=== PATIENT | female | born 1960 | race Caucasian/White ===

== ENCOUNTER 2016-04-29 16:25 | Inpatient (IN) | payer MEDICARE, MEDICAID, OTHER ==
[~2016-04-29] VITALS: Ht 165.1 cm; Wt 78.9 kg
[~2016-04-29 16:25] MED LIST: ACET650T10 PO; ALEN70TA39 PO; ASCO500C PO; CALC600T10; CARB300C PO; CLIN1CAP6 PO; FLORPAK2 PO; LEVA500T33 PO; LYRI150C PO; MILN25 PO; MULT1TAB46; OXYC10TA8 PO; POTA75TA PO; RANI75TA8 PO; ROPI1TAB; TIZA2TAB PO; VITA-13 PO; WAL-10TA2 PO; ZINC220C3 PO; ZOLP5TAB3 PO
[2016-04-29 17:00] VITALS: BP 153/90; PULSE 84; RESP 20; TEMP 97.9; O2SAT 97
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
[2016-04-29] MEDS ORDERED: IMIT100T PO (17:20)
[2016-04-29] MEDS ORDERED: ZOLP10TA3 PO (17:20)
[2016-04-29] MEDS ORDERED: LYRI150C PO (17:20)
[2016-04-29 17:52] LABS: AUTOMATED NEUTROPHIL # 4.8 TH/MM3 (1.8-7.7); BASOPHIL # 0.1 TH/MM3 (0-0.2); BASOPHIL % 0.7 % (0.0-2.0); EOSINOPHIL # 0.1 TH/MM3 (0-0.4); EOSINOPHIL % 0.8 % (0.0-4.0); HEMATOCRIT 40.6 % (35.0-46.0); HEMO FLAGS DIFF FINAL; LYMPH % 31.7 % (9.0-44.0); LYMPHOCYTE # 2.7 TH/MM3 (1.0-4.8); MEAN CELL VOLUME 89.2 FL (80.0-100.0); MEAN CORPUSCULAR HEMOGLOBIN 29.8 PG (27.0-34.0); MEAN CORPUSCULAR HGB CONC 33.4 % (32.0-36.0); MONO % 9.7 % (0.0-8.0); NEUT % 57.1 % (16.0-70.0); PLATELET COUNT 225 TH/MM3 (150-450); RED BLOOD COUNT 4.56 MIL/MM3 (4.00-5.30); RED CELL DISTRIBUTION WIDTH 13.5 % (11.6-17.2); WHITE BLOOD COUNT 8.4 TH/MM3 (4.0-11.0)
[2016-04-29 18:06] LABS: BLOOD, URINE NEG (NEG); CALCIUM OXALATE CRYSTALS,URINE MANY /hpf; COMMENT (UR) CULT NOT INDICATED; CULTURE IF INDICATED CULT NOT INDICATED; GLUCOSE,URINE NEG (NEG); KETONE, URINE NEG (NEG); NITRITE,URINE NEG (NEG); SQUAMOUS EPITHELIAL CELL URINE 2 /hpf (0-5); URINE COLOR YELLOW (YELLW/STRAW)
[2016-04-29 18:12] LABS: AMPHETAMINE, URINE NEG (NEG); BARBITURATES, URINE NEG (NEG); COCAINE, URINE NEG (NEG)
[2016-04-29 18:14] LABS: ALKALINE PHOSPHATASE 109 U/L (45-117); TOTAL BILIRUBIN ADULT 0.6 MG/DL (0.2-1.0)
[2016-04-29 18:15] LABS: ALT (GPT) 21 U/L (10-53); ANION GAP 8 MEQ/L (5-15); AST (GOT) 29 U/L (15-37); BICARBONATE 28.8 MEQ/L (21.0-32.0); BLOOD UREA NITROGEN 8 MG/DL (7-18); CHLORIDE 107 MEQ/L (98-107); GLOMERULAR FILTRATION RATE 74 ML/MIN (>89); SODIUM (NA) 144 MEQ/L (136-145)
[2016-04-29 18:19] LABS: POTASSIUM 3.6 MEQ/L (3.5-5.1)
[2016-04-29] MEDS ORDERED: ZANA2CAP PO (18:32)
[2016-04-29] MEDS ORDERED: ROPI1TAB PO (18:32)
[2016-04-29] MEDS ORDERED: CARB200T PO (18:32)
[2016-04-29] MEDS ORDERED: LORA10TA PO (18:35)
[2016-04-29] MEDS ORDERED: OXYC-395 PO (18:35)
[2016-04-29] MEDS ORDERED: MILN25 PO (18:35)
[2016-04-29 18:37] VITALS: BP 136/77; PULSE 75; RESP 20; O2SAT 97
[2016-04-29] MEDS ORDERED: ACET325T PO (18:52)
[2016-04-29] MEDS ORDERED: TEMA15CA PO (18:52)
[2016-04-29] MEDS ORDERED: FEXO1TAB41 PO (18:52)
[2016-04-29] MEDS ORDERED: FLUT1SPR5 EACH NARE (18:52)
[2016-04-29] MEDS ORDERED: MILKSUS PO (18:52)
[2016-04-29] MEDS ORDERED: ASPI1TAB93 PO (18:52)
[2016-04-29 20:16] VITALS: BP 172/94; PULSE 89; RESP 19; O2SAT 96
[2016-04-30 02:00] VITALS: BP 128/64; PULSE 77; RESP 19; O2SAT 97
[2016-04-30 06:16] VITALS: BP 136/64; PULSE 76; RESP 18; O2SAT 100
[2016-04-30] MEDS ORDERED: ACETAMINOPHEN 325 MG TAB PO PRN ×2 (10:00→10:15)
[2016-04-30] MEDS ORDERED: ALUMINUM/MAGNESIUM/SIMETH 30 ML CUP PO PRN ×2 (10:00→10:15)
[2016-04-30] MEDS ORDERED: MAGNESIUM HYDROXIDE SUSP 30 ML CUP PO PRN ×2 (10:00→10:15)
[2016-04-30] MEDS ORDERED: LORazepam 0.5 MG TAB PO PRN (10:00)
[2016-04-30] MEDS ORDERED: LORazepam 1 MG TAB PO PRN ×2 (10:00→10:15)
[2016-04-30] MEDS ORDERED: LORazepam 2 MG/ML VIAL IM PRN ×4 (10:00→10:15)
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
[2016-04-30 10:50] VITALS: BP 139/68; PULSE 77; RESP 18
[2016-04-30 11:29] VITALS: BP 139/68; PULSE 77; RESP 18
[2016-04-30 11:45] VITALS: BP 158/89; PULSE 79; RESP 16; TEMP 97.8; O2SAT 97
[2016-04-30] MEDS ORDERED: ZOLPIDEM TARTRATE 10 MG TAB PO PRN (11:45)
[2016-04-30] MEDS ORDERED: PILL SPLITTER OTHER PRN (13:15)
[2016-04-30] MEDS: guaiFENesin E.R. 600 MG TAB PO SCH (21:00)
[2016-04-30] MEDS: PREGABALIN 75 MG CAP PO SCH (21:00)
[2016-04-30] MEDS: carBAMazepine 200 MG TAB PO SCH (21:00)
[2016-04-30] MEDS ORDERED: REMOVE OLD PATCH T-DERMAL SCH (21:00)
[2016-04-30 22:45] VITALS: BP 162/85; PULSE 89; RESP 18; TEMP 96.6; O2SAT 93
[2016-05-01 06:00] VITALS: BP 101/58; PULSE 82; RESP 18; TEMP 98.7; O2SAT 96
[2016-05-01 08:28] LABS: ANION GAP 7 MEQ/L (5-15); BICARBONATE 31.7 MEQ/L (21.0-32.0); BLOOD UREA NITROGEN 11 MG/DL (7-18); CHLORIDE 102 MEQ/L (98-107); GLOMERULAR FILTRATION RATE 78 ML/MIN (>89); POTASSIUM 3.4 MEQ/L (3.5-5.1); SODIUM (NA) 141 MEQ/L (136-145)
[2016-05-01 08:30] LABS: HDL CHOLESTEROL 71.2 MG/DL (40.0-60.0); LDL CHOLESTEROL 93 MG/DL (0-99)
[2016-05-01] MEDS: MILNACIPRAN 25 MG PO SCH (09:00)
[2016-05-01] MEDS ORDERED: REMOVE OLD PATCH T-DERMAL SCH (09:00)
[2016-05-01] MEDS ORDERED: NICOTINE 21 MG/24 HR PATCH T-DERMAL SCH ×2 (09:00)
[2016-05-01] MEDS: PREGABALIN 75 MG CAP PO SCH ×2 (09:00→21:25)
[2016-05-01] MEDS: LORATADINE 10 MG TAB PO SCH (10:36)
[2016-05-01] MEDS: guaiFENesin E.R. 600 MG TAB PO SCH ×2 (10:36→21:25)
[2016-05-01 10:57] LABS: HEMOGLOBIN A1a 0.9 %; HEMOGLOBIN A1b 0.9 %; HEMOGLOBIN Ao 86.9 %; HEMOGLOBIN F 0.8 %; HEMOGLOBIN LA1C 1.7 %; HEMOGLOBIN P3 3.3 %
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
[2016-05-01 17:59] VITALS: BP 103/59; PULSE 79; RESP 18; TEMP 98.3; O2SAT 96
[2016-05-01] MEDS: AMITRIPTYLINE HCL 25 MG TAB PO SCH (21:25)
[2016-05-01] MEDS: carBAMazepine 200 MG TAB PO SCH (21:26)
[2016-05-02 06:25] VITALS: BP 108/64; PULSE 88; RESP 16; TEMP 97.8; O2SAT 97
[2016-05-02] MEDS: MILNACIPRAN 25 MG PO SCH (09:00)
[2016-05-02] MEDS: guaiFENesin E.R. 600 MG TAB PO SCH ×2 (09:58→21:58)
[2016-05-02] MEDS: carBAMazepine 200 MG TAB PO SCH ×2 (09:58→21:58)
[2016-05-02] MEDS: LORATADINE 10 MG TAB PO SCH (09:58)
--- NOTE | 2016-05-02 13:05 | HHI.PYPN ---
Subjective Remarks Patient seen in her room with nurse Magda, chart reviewed, patient somewhat more irritable and demanding today stating that she will only eat when she wants to eat. That she dislikes being around a lot of people. Which is why she stays in her room. Though she does deny depression at this time she is somewhat more irritable and vigilant. When asked about this and we will could help this along she said "I just want to go home". When I reminded her of the Johnson acted and needs to stay she became angry phone with her arms and refused to talk to me anymore Review of Systems Except as stated in HPI: all other systems reviewed are Neg Objective Alert: Yes [place]: Person, Place, Date, Situation Mood: Calm Affect: Euthymic Memory Intact: Comment (poor) Hallucinations: Other (denies) Delusions: No Delusion Type: Other (denies) Suicidal: Ideation (denies) Homicidal: Ideation (denies) Insight/Judgement Very poor Vitals/IOs Vital Signs Date Time Temp Pulse Resp B/P Pulse Ox O2 Delivery O2 Flow Rate FiO2 05/02/16 06:25 97.8 88 16 108/64 97 04/30/16 11:29 Room Air Intake and Output 05/01/16 05/01/16 05/02/16 08:00 16:00 00:00 Intake Total 0 ml 360 ml 0 ml Balance 0 ml 360 ml 0 ml Assessment & Plan Problem List: (1) Adjustment disorder with mixed disturbance of emotions and conduct ICD Code: F43.25 Assessment & Plan Estimated LOS: days patient continues irritable bowel somewhat guarded, though denying suicidality. Continues to show little insight Justification for Cont. Inpt. At this time patient would decompensate if placed in a lower level of care Discharge Planning Be determined Renzo Camejo MD May 02, 2016 13:05
[2016-05-02] MEDS: LORazepam 0.5 MG TAB PO PRN (17:30)
[2016-05-02 20:05] VITALS: BP 113/59; PULSE 107; RESP 16; TEMP 97.4; O2SAT 97
[2016-05-02] MEDS: PREGABALIN 75 MG CAP PO SCH (21:58)
[2016-05-02] MEDS: AMITRIPTYLINE HCL 25 MG TAB PO SCH (21:59)
[2016-05-03 06:24] VITALS: BP 126/69; PULSE 93; RESP 18; TEMP 98.1; O2SAT 98
[2016-05-03] MEDS: MILNACIPRAN 25 MG PO SCH (09:00)
[2016-05-03] MEDS: LORATADINE 10 MG TAB PO SCH (09:29)
[2016-05-03] MEDS: carBAMazepine 200 MG TAB PO SCH ×2 (09:30→21:00)
[2016-05-03] MEDS: guaiFENesin E.R. 600 MG TAB PO SCH ×2 (09:30→21:00)
--- NOTE | 2016-05-03 18:44 | HHI.PYPN ---
Subjective Remarks Pt seen and discussed with staff. Pt has been withdrawn and isolative to her room. Appetite is poor. No aggression or agitation. She is compliant with medications and denies side effects. Objective Alert: Yes [place]: Person, Place, Date, Situation Mood: Calm Affect: Restricted Memory Intact: Comment (poor) Hallucinations: Other (denies) Delusions: No Delusion Type: Other (denies) Suicidal: Ideation (denies) Homicidal: Ideation (denies) Insight/Judgement limited Vitals/IOs Vital Signs Date Time Temp Pulse Resp B/P Pulse Ox O2 Delivery O2 Flow Rate FiO2 05/03/16 06:24 98.1 93 18 126/69 98 04/30/16 11:29 Room Air Intake and Output 05/02/16 05/02/16 05/03/16 08:00 16:00 00:00 Intake Total 0 ml 0 ml 0 ml Balance 0 ml 0 ml 0 ml Assessment & Plan Problem List: (1) Adjustment disorder with mixed disturbance of emotions and conduct ICD Code: F43.25 Assessment & Plan Continue current tx plan. Estimated LOS: days Justification for Cont. Inpt. monitoring for safety Aissatou Tellez MD May 03, 2016 18:43
[2016-05-03] MEDS: PREGABALIN 75 MG CAP PO SCH (21:15)
[2016-05-03] MEDS: AMITRIPTYLINE HCL 25 MG TAB PO SCH (21:15)
[2016-05-03 22:00] VITALS: BP 133/66; PULSE 100; RESP 18; TEMP 97.8; O2SAT 98
[2016-05-04 05:33] VITALS: BP 130/68; PULSE 87; RESP 16; TEMP 97.6; O2SAT 98
[2016-05-04] MEDS: MILNACIPRAN 25 MG PO SCH (09:00)
[2016-05-04] MEDS: LORATADINE 10 MG TAB PO SCH (09:00)
[2016-05-04] MEDS: carBAMazepine 200 MG TAB PO SCH ×2 (09:00→21:40)
[2016-05-04] MEDS: guaiFENesin E.R. 600 MG TAB PO SCH ×2 (09:00→21:40)
--- NOTE | 2016-05-04 11:55 | HHI.PYPN ---
Subjective Remarks Pt seen and discussed with staff. Pt refused night time medicines, stating that she doesn't take them. During rounds, explained to pt importance of tegretol for mood stabilization and pt agreed to take medicines. She continues to isolate in her room. Objective Alert: Yes [place]: Person, Place, Date, Situation Mood: Calm Affect: Restricted Memory Intact: Comment (poor) Hallucinations: Other (denies) Delusions: No Delusion Type: Other (denies) Suicidal: Ideation (denies) Homicidal: Ideation (denies) Insight/Judgement poor Vitals/IOs Vital Signs Date Time Temp Pulse Resp B/P Pulse Ox O2 Delivery O2 Flow Rate FiO2 05/04/16 05:33 97.6 87 16 130/68 98 04/30/16 11:29 Room Air Intake and Output 05/03/16 05/03/16 05/04/16 08:00 16:00 00:00 Intake Total 0 ml 840 ml Balance 0 ml 840 ml Assessment & Plan Problem List: (1) Adjustment disorder with mixed disturbance of emotions and conduct ICD Code: F43.25 Assessment & Plan Continue current tx plan. Estimated LOS: days Justification for Cont. Inpt. monitoring for safety. medication adjustments. Aissatou Tellez MD May 04, 2016 11:55
[2016-05-04] MEDS: AMITRIPTYLINE HCL 25 MG TAB PO SCH (21:39)
[2016-05-04] MEDS: PREGABALIN 75 MG CAP PO SCH (21:40)
[2016-05-05 04:55] VITALS: BP 131/64; PULSE 88; RESP 18; TEMP 98.1; O2SAT 93
[2016-05-05] MEDS: MILNACIPRAN 25 MG PO SCH (09:00)
[2016-05-05] MEDS: guaiFENesin E.R. 600 MG TAB PO SCH ×2 (09:33→21:38)
[2016-05-05] MEDS: carBAMazepine 200 MG TAB PO SCH ×2 (09:33→21:40)
[2016-05-05] MEDS: LORATADINE 10 MG TAB PO SCH (09:33)
--- NOTE | 2016-05-05 13:48 | HHI.PYPN ---
Subjective Remarks Patient discussed with treatment team, chart review patient seen on unit. All patient continues to somewhat isolate and resistant to medication she is showing some increased cooperation with that. For now continue treatment Review of Systems Except as stated in HPI: all other systems reviewed are Neg Objective Alert: Yes [place]: Person, Place, Date, Situation Mood: Calm Affect: Restricted Memory Intact: Comment (poor) Hallucinations: Other (denies) Delusions: No Delusion Type: Other (denies) Suicidal: Ideation (denies) Homicidal: Ideation (denies) Insight/Judgement Poor Vitals/IOs Vital Signs Date Time Temp Pulse Resp B/P Pulse Ox O2 Delivery O2 Flow Rate FiO2 05/05/16 04:55 98.1 88 18 131/64 93 Intake and Output 05/04/16 05/04/16 05/05/16 08:00 16:00 00:00 Intake Total 0 ml 0 ml Balance 0 ml 0 ml Assessment & Plan Problem List: (1) Adjustment disorder with mixed disturbance of emotions and conduct ICD Code: F43.25 Assessment & Plan Estimated LOS: days patient compliant medications though at times with some reluctance, needing encouragement, patient overall calmer and somewhat more focused, or pleasant with me Justification for Cont. Inpt. At this time patient will decompensate if placed in a lower level of care Discharge Planning To be determined Renzo Camejo MD May 05, 2016 13:48
[2016-05-05 18:00] VITALS: BP 155/95; PULSE 93; RESP 18; TEMP 98.5; O2SAT 97
[2016-05-05] MEDS: PREGABALIN 75 MG CAP PO SCH (21:39)
[2016-05-05] MEDS: AMITRIPTYLINE HCL 25 MG TAB PO SCH (21:40)
[2016-05-06 06:00] VITALS: BP 99/59; PULSE 73; RESP 18; TEMP 96.4; O2SAT 94
[2016-05-06] MEDS: MILNACIPRAN 25 MG PO SCH (09:00)
[2016-05-06] MEDS: carBAMazepine 200 MG TAB PO SCH ×2 (09:47→21:00)
[2016-05-06] MEDS: guaiFENesin E.R. 600 MG TAB PO SCH ×2 (09:47→21:00)
[2016-05-06] MEDS: LORATADINE 10 MG TAB PO SCH (09:47)
--- NOTE | 2016-05-06 15:26 | HHI.PYPN ---
Subjective Remarks Patient seen in her room with nurse Edith and medical student Kaity, chart review, patient's mood is improving she showing increased affect with good eye contact, she now denies suicidality homicidality voices or visions. At this time she is also being interviewed for a possible placement at [facility]. For now continue treatment no change Review of Systems Except as stated in HPI: all other systems reviewed are Neg Objective Alert: Yes [place]: Person, Place, Date, Situation Mood: Calm Affect: Restricted Memory Intact: Comment (poor) Hallucinations: Other (denies) Delusions: No Delusion Type: Other (denies) Suicidal: Ideation (denies) Homicidal: Ideation (denies) Insight/Judgement Poor to fair Vitals/IOs Vital Signs Date Time Temp Pulse Resp B/P Pulse Ox O2 Delivery O2 Flow Rate FiO2 05/06/16 06:00 96.4 73 18 99/59 94 Intake and Output 05/05/16 05/05/16 05/06/16 08:00 16:00 00:00 Intake Total 600 ml 480 ml Balance 600 ml 480 ml Assessment & Plan Problem List: (1) Adjustment disorder with mixed disturbance of emotions and conduct ICD Code: F43.25 Assessment & Plan Estimated LOS: days patient's mood improving in affect is improving. Compliant medications. Now denies SI/HI continue to work with placement Justification for Cont. Inpt. At this time patient will decompensate placed in a lower level of care Discharge Planning To be determined Rezno Camejo MD May 06, 2016 15:25
[2016-05-06 18:15] VITALS: BP 161/88; PULSE 83; RESP 17; TEMP 98.2
[2016-05-06] MEDS: PREGABALIN 75 MG CAP PO SCH (21:00)
[2016-05-06] MEDS: AMITRIPTYLINE HCL 25 MG TAB PO SCH (21:30)
[2016-05-07 06:07] VITALS: BP 102/54; PULSE 62; RESP 18; TEMP 97.6; O2SAT 97
[2016-05-07 06:13] VITALS: BP 102/54; PULSE 62; RESP 18; TEMP 97.6; O2SAT 97
[2016-05-07] MEDS: MILNACIPRAN 25 MG PO SCH (09:00)
[2016-05-07] MEDS: guaiFENesin E.R. 600 MG TAB PO SCH ×2 (09:23→20:53)
[2016-05-07] MEDS: LORATADINE 10 MG TAB PO SCH (09:23)
[2016-05-07] MEDS: carBAMazepine 200 MG TAB PO SCH ×2 (09:24→21:00)
--- NOTE | 2016-05-07 11:08 | HHI.PYPN ---
Subjective Remarks Patient seen in her room with nurse Emre, chart review, patient sitting in chair reading a magazine patient calm pleasant with me. Now denying suicidality homicidality voices or visions. Review of Systems Except as stated in HPI: all other systems reviewed are Neg Objective Alert: Yes [place]: Person, Place, Date, Situation Mood: Calm Affect: Euthymic Memory Intact: Comment (poor) Hallucinations: Other (denies) Delusions: No Delusion Type: Other (denies) Suicidal: Ideation (denies) Homicidal: Ideation (denies) Insight/Judgement Poor Vitals/IOs Vital Signs Date Time Temp Pulse Resp B/P Pulse Ox O2 Delivery O2 Flow Rate FiO2 05/07/16 06:13 97.6 62 18 102/54 97 Intake and Output 05/06/16 05/06/16 05/07/16 08:00 16:00 00:00 Intake Total 1200 ml Balance 1200 ml Assessment & Plan Problem List: (1) Adjustment disorder with mixed disturbance of emotions and conduct ICD Code: F43.25 Assessment & Plan Estimated LOS: days patient's mood is improving, compliant medications, no behavioral problems. Denying suicidality homicidality voices or visions. Continue to word from possible placement Justification for Cont. Inpt. At this time patient will decompensate if placed in the lower level of care Discharge Planning To be determined Renzo Camejo MD May 07, 2016 11:08
[2016-05-07 19:35] VITALS: BP 154/89; PULSE 95; RESP 18; TEMP 98.8; O2SAT 98
[2016-05-07] MEDS: PREGABALIN 75 MG CAP PO SCH (20:55)
[2016-05-07] MEDS: AMITRIPTYLINE HCL 25 MG TAB PO SCH (21:00)
[2016-05-08 05:47] VITALS: BP 84/54; PULSE 73; RESP 16; TEMP 97.6; O2SAT 96
[2016-05-08] MEDS: LORATADINE 10 MG TAB PO SCH (08:54)
[2016-05-08] MEDS: guaiFENesin E.R. 600 MG TAB PO SCH ×2 (08:55→20:44)
[2016-05-08] MEDS: carBAMazepine 200 MG TAB PO SCH ×2 (08:55→20:45)
[2016-05-08] MEDS: MILNACIPRAN 25 MG PO SCH (09:00)
--- NOTE | 2016-05-08 14:56 | HHI.PYPN ---
Subjective Remarks Patient seen in her room with nurse Mt and medical student Akua, chart reviewed, patient calm cooperative pleasant denies suicidality homicidality voices or visions. Still complains of some depression though it is better. She is compliant with medications. At the present time patient is waiting for responses from representatives of various [facility]. For now continue treatment Review of Systems Except as stated in HPI: all other systems reviewed are Neg Objective Alert: Yes [place]: Person, Place, Date, Situation Mood: Calm Affect: Euthymic Memory Intact: Comment (poor) Hallucinations: Other (denies) Delusions: No Delusion Type: Other (denies) Suicidal: Ideation (denies) Homicidal: Ideation (denies) Insight/Judgement Poor to fair Vitals/IOs Vital Signs Date Time Temp Pulse Resp B/P Pulse Ox O2 Delivery O2 Flow Rate FiO2 05/08/16 05:47 97.6 73 16 84/54 96 Intake and Output 05/07/16 05/07/16 05/08/16 08:00 16:00 00:00 Intake Total 0 ml 540 ml Balance 0 ml 540 ml Assessment & Plan Problem List: (1) Adjustment disorder with mixed disturbance of emotions and conduct ICD Code: F43.25 Assessment & Plan Estimated LOS: days patient calm cooperative compliant medications. Continue to await word from possible placements for now continue treatment Justification for Cont. Inpt. At this time patient would decompensate if placed in a lower level of care Discharge Planning To be determined Renzo Camejo MD May 08, 2016 14:56
[2016-05-08 20:04] VITALS: BP 151/89; PULSE 74; RESP 16; TEMP 97.6; O2SAT 96
[2016-05-08] MEDS: AMITRIPTYLINE HCL 25 MG TAB PO SCH (20:43)
[2016-05-08] MEDS: PREGABALIN 75 MG CAP PO SCH (20:43)
[2016-05-09 05:37] VITALS: BP 102/55; PULSE 70; RESP 18; TEMP 97.1; O2SAT 95
[2016-05-09] MEDS: LORATADINE 10 MG TAB PO SCH ×2 (09:00→09:31)
[2016-05-09] MEDS: MILNACIPRAN 25 MG PO SCH (09:00)
[2016-05-09] MEDS: carBAMazepine 200 MG TAB PO SCH ×3 (09:00→20:47)
[2016-05-09] MEDS: guaiFENesin E.R. 600 MG TAB PO SCH ×2 (09:31→20:46)
--- NOTE | 2016-05-09 12:11 | HHI.PYPN ---
Subjective Remarks Patient seen in her room with medical student Akua, chart reviewed. Patient continues to isolate the no behavioral problems, she is calm cooperative compliant medications. She states she does not feel lonely or alone when sitting in her room. She is coping with them hoping for a good response from her prior interviews Review of Systems Except as stated in HPI: all other systems reviewed are Neg Objective Alert: Yes [place]: Person, Place, Date, Situation Mood: Calm Affect: Euthymic Memory Intact: Comment (poor) Hallucinations: Other (denies) Delusions: No Delusion Type: Other (denies) Suicidal: Ideation (denies) Homicidal: Ideation (denies) Insight/Judgement Poor Vitals/IOs Vital Signs Date Time Temp Pulse Resp B/P Pulse Ox O2 Delivery O2 Flow Rate FiO2 05/09/16 05:37 97.1 70 18 102/55 95 Assessment & Plan Problem List: (1) Adjustment disorder with mixed disturbance of emotions and conduct ICD Code: F43.25 Assessment & Plan Estimated LOS: days patient continues calm cooperative no denying suicidality though continues to appear somewhat sad. Compliant medications. Continue to await word from possible placement Justification for Cont. Inpt. At this time patient will decompensate placed on a lower level of care Discharge Planning To be determined Renzo Camejo MD May 09, 2016 12:11
[2016-05-09 18:31] VITALS: BP 135/83; PULSE 78; RESP 18; TEMP 98.2; O2SAT 97
[2016-05-09] MEDS: PREGABALIN 75 MG CAP PO SCH (20:45)
[2016-05-09] MEDS: AMITRIPTYLINE HCL 25 MG TAB PO SCH (20:46)
[2016-05-10 06:06] VITALS: BP 114/58; PULSE 70; RESP 16; TEMP 98.1; O2SAT 95
[2016-05-10] MEDS: LORATADINE 10 MG TAB PO SCH (09:00)
[2016-05-10] MEDS: MILNACIPRAN 25 MG PO SCH (09:00)
[2016-05-10] MEDS: carBAMazepine 200 MG TAB PO SCH ×3 (09:00→20:59)
[2016-05-10] MEDS: guaiFENesin E.R. 600 MG TAB PO SCH ×2 (09:10→20:59)
--- NOTE | 2016-05-10 12:34 | HHI.PYPN ---
Subjective Remarks Patient was seen and case discussed with nursing. Patient is disheveled, interviewed in bed. She is calm and cooperative with exam. Describes her mood as "fine. Poor insight into her admission. Denies auditory visual hallucinations. Denies suicidal ideations thought or plan. Behaving well on the unit. Refusing most of her medications Objective Alert: Yes [place]: Person, Place, Date, Situation Mood: Calm Affect: Euthymic Memory Intact: Comment (poor) Hallucinations: Other (denies) Delusions: No Delusion Type: Other (denies) Suicidal: Ideation (denies) Homicidal: Ideation (denies) Insight/Judgement Poor Vitals/IOs Vital Signs Date Time Temp Pulse Resp B/P Pulse Ox O2 Delivery O2 Flow Rate FiO2 05/10/16 06:06 98.1 70 16 114/58 95 Assessment & Plan Problem List: (1) Adjustment disorder with mixed disturbance of emotions and conduct ICD Code: F43.25 Assessment & Plan Continue current treatment plan Justification for Cont. Inpt. Patient will decompensate in a less restrictive setting Kale Pendleton DO May 10, 2016 12:34
[2016-05-10] MEDS: AMITRIPTYLINE HCL 25 MG TAB PO SCH (20:56)
[2016-05-10] MEDS: PREGABALIN 75 MG CAP PO SCH (20:56)
[2016-05-11 06:30] VITALS: BP 95/53; PULSE 71; RESP 18; TEMP 97.7; O2SAT 94
[2016-05-11] MEDS: guaiFENesin E.R. 600 MG TAB PO SCH ×2 (09:00→20:42)
[2016-05-11] MEDS: MILNACIPRAN 25 MG PO SCH (09:00)
[2016-05-11] MEDS: LORATADINE 10 MG TAB PO SCH (09:44)
[2016-05-11] MEDS: carBAMazepine 200 MG TAB PO SCH ×2 (09:44→20:43)
--- NOTE | 2016-05-11 14:44 | HHI.PYPN ---
Subjective Remarks Patient was seen and case discussed with nursing. Patient is very seclusive to room. Alert and oriented 3. Knows the president. She is irritable and says she does not like people. Spending her time playing solitaire. Denies auditory visual hallucinations. Denies suicidal ideations intent or plan Objective Alert: Yes [place]: Person, Place, Date, Situation Mood: Other (irritable) Affect: Blunted Memory Intact: Comment (poor) Hallucinations: Other (denies) Delusions: No Delusion Type: Other (denies) Suicidal: Ideation (denies) Homicidal: Ideation (denies) Insight/Judgement Limited Vitals/IOs Vital Signs Date Time Temp Pulse Resp B/P Pulse Ox O2 Delivery O2 Flow Rate FiO2 05/11/16 06:30 97.7 71 18 95/53 94 Assessment & Plan Problem List: (1) Adjustment disorder with mixed disturbance of emotions and conduct ICD Code: F43.25 Assessment & Plan Continue current treatment plan Justification for Cont. Inpt. Patient will decompensate in a less restrictive setting Kale Pendleton DO May 11, 2016 14:44
[2016-05-11 17:49] VITALS: BP 124/77; PULSE 89; RESP 18; TEMP 98.4; O2SAT 96
[2016-05-11 20:22] VITALS: BP 124/77; PULSE 89; RESP 18; TEMP 98.4; O2SAT 96
[2016-05-11] MEDS: PREGABALIN 75 MG CAP PO SCH (20:40)
[2016-05-11] MEDS: AMITRIPTYLINE HCL 25 MG TAB PO SCH (20:40)
[2016-05-12 05:09] VITALS: BP 103/57; PULSE 73; RESP 18; TEMP 98.2; O2SAT 96
[2016-05-12] MEDS: LORATADINE 10 MG TAB PO SCH (09:00)
[2016-05-12] MEDS: MILNACIPRAN 25 MG PO SCH (09:00)
[2016-05-12] MEDS: guaiFENesin E.R. 600 MG TAB PO SCH ×2 (09:57→20:43)
[2016-05-12] MEDS: carBAMazepine 200 MG TAB PO SCH ×2 (09:58→20:45)
[2016-05-12 16:44] VITALS: BP 144/71; PULSE 76; RESP 18; TEMP 98.3; O2SAT 97
--- NOTE | 2016-05-12 16:51 | HHI.PYPN ---
Subjective Remarks Patient discussed with treatment team, chart review, seen on unit. Her problems is coping with her placement issues. Denies suicidality of voices. Compliant medications. For now continue treatment Review of Systems Except as stated in HPI: all other systems reviewed are Neg Objective Alert: Yes [place]: Person, Place, Date, Situation Mood: Other (irritable) Affect: Blunted Memory Intact: Comment (poor) Hallucinations: Other (denies) Delusions: No Delusion Type: Other (denies) Suicidal: Ideation (denies) Homicidal: Ideation (denies) Insight/Judgement Poor Vitals/IOs Vital Signs Date Time Temp Pulse Resp B/P Pulse Ox O2 Delivery O2 Flow Rate FiO2 05/12/16 16:44 98.3 76 18 144/71 97 Assessment & Plan Problem List: (1) Adjustment disorder with mixed disturbance of emotions and conduct ICD Code: F43.25 Assessment & Plan Estimated LOS: days patient somewhat calmer coping with placement issues. Compliant medication Justification for Cont. Inpt. At this time patient will decompensate placed in a lower level of care Discharge Planning To be determined Renzo Camejo MD May 12, 2016 16:51
[2016-05-12] MEDS: PREGABALIN 75 MG CAP PO SCH (20:43)
[2016-05-12] MEDS: AMITRIPTYLINE HCL 25 MG TAB PO SCH (20:43)
[2016-05-13 05:45] VITALS: BP 100/56; PULSE 70; RESP 17; TEMP 98; O2SAT 95
[2016-05-13] MEDS: guaiFENesin E.R. 600 MG TAB PO SCH ×2 (08:18→20:57)
[2016-05-13] MEDS: carBAMazepine 200 MG TAB PO SCH ×2 (08:20→21:00)
[2016-05-13] MEDS: LORATADINE 10 MG TAB PO SCH (08:20)
[2016-05-13] MEDS: MILNACIPRAN 25 MG PO SCH (08:20)
--- NOTE | 2016-05-13 14:54 | HHI.PYPN ---
Subjective Remarks Patient seen in her room with medical student Akua, chart reviewed. Patient showing noncompliance with her Tegretol was compliant medication. Patient is calm cooperative pleasant with us denies suicidality homicidality voices or visions. Is excited about possible placement at [facility]. For now continue treatment Review of Systems Except as stated in HPI: all other systems reviewed are Neg Objective Alert: Yes [place]: Person, Place, Date, Situation Mood: Other (irritable) Affect: Blunted Memory Intact: Comment (poor) Hallucinations: Other (denies) Delusions: No Delusion Type: Other (denies) Suicidal: Ideation (denies) Homicidal: Ideation (denies) Insight/Judgement Poor Vitals/IOs Vital Signs Date Time Temp Pulse Resp B/P Pulse Ox O2 Delivery O2 Flow Rate FiO2 05/13/16 05:45 98.0 70 17 100/56 95 Assessment & Plan Problem List: (1) Adjustment disorder with mixed disturbance of emotions and conduct ICD Code: F43.25 Assessment & Plan Estimated LOS: days patient continues to isolate though is calm cooperative pleasant with us. Denying suicidality homicidality voices or visions. Showing some mixed compliance medication especially focused on her Tegretol. Otherwise patient no behavioral issues. Continues to await word from [facility] Justification for Cont. Inpt. At this time patient will decompensate the placed in a lower level of care Discharge Planning To be determined Renzo Camejo MD May 13, 2016 14:54
[2016-05-13] MEDS: AMITRIPTYLINE HCL 25 MG TAB PO SCH (20:57)
[2016-05-13] MEDS: PREGABALIN 75 MG CAP PO SCH (20:57)
[2016-05-13 21:55] VITALS: BP 158/93; PULSE 83; TEMP 98.2; O2SAT 99
[2016-05-14 05:59] VITALS: BP 92/56; PULSE 72; RESP 18; TEMP 97.4; O2SAT 95
[2016-05-14] MEDS: LORATADINE 10 MG TAB PO SCH (08:48)
[2016-05-14] MEDS: guaiFENesin E.R. 600 MG TAB PO SCH ×2 (08:48→21:00)
[2016-05-14] MEDS: MILNACIPRAN 25 MG PO SCH (08:48)
[2016-05-14] MEDS: carBAMazepine 200 MG TAB PO SCH ×2 (08:49→21:00)
--- NOTE | 2016-05-14 12:21 | HHI.PYPN ---
Subjective Remarks Patient remains psychotic with paranoid ideations, mistrustful this, and feelings of persecution by other patients. She makes veiled threats to harm others who she perceives as allotting against her. Review of Systems ROS Limitations: Clinical Condition Except as stated in HPI: all other systems reviewed are Neg Objective Alert: Yes [place]: Person, Place Mood: Anxious, Other (irritable) Affect: Restricted, Blunted Memory Intact: Immediate, Comment (poor) Hallucinations: Other (denies) Delusions: Yes Delusion Type: Paranoid, Other (denies) Suicidal: Ideation (denies) Homicidal: Ideation (denies) Insight/Judgement Impaired. Vitals/IOs Vital Signs Date Time Temp Pulse Resp B/P Pulse Ox O2 Delivery O2 Flow Rate FiO2 05/14/16 05:59 97.4 72 18 92/56 95 Assessment & Plan Problem List: (1) Adjustment disorder with mixed disturbance of emotions and conduct ICD Code: F43.25 Assessment & Plan Estimated LOS: days 3 days as it appears the patient's antipsychotic medicines still need more time to work. Justification for Cont. Inpt. Paranoid and remains at risk for attacking others. Elder Santana MD May 14, 2016 12:21
[2016-05-14 18:50] VITALS: BP 138/84; PULSE 82; RESP 18; TEMP 98.2; O2SAT 99
[2016-05-14] MEDS: PREGABALIN 75 MG CAP PO SCH (21:05)
[2016-05-14] MEDS: AMITRIPTYLINE HCL 25 MG TAB PO SCH (21:05)
[2016-05-15 06:03] VITALS: BP 100/65; PULSE 46; RESP 16; TEMP 97.3
[2016-05-15] MEDS: MILNACIPRAN 25 MG PO SCH (09:00)
[2016-05-15] MEDS: guaiFENesin E.R. 600 MG TAB PO SCH ×2 (09:00→10:52)
[2016-05-15] MEDS: carBAMazepine 200 MG TAB PO SCH ×2 (09:00→10:53)
[2016-05-15] MEDS: LORATADINE 10 MG TAB PO SCH ×2 (09:00→10:53)
--- NOTE | 2016-05-15 11:06 | HHI.PYPN ---
Subjective Remarks Patient has been irritable, cross and difficult. She would not take her prescribed medications for physical ailments until this physician spoke critically to her. She does not appear to appreciate the severity or dangerousness of her physical conditions. Review of Systems ROS Limitations: Clinical Condition Except as stated in HPI: all other systems reviewed are Neg Objective Alert: Yes [place]: Person, Place Mood: Agitated, Other (irritable) Affect: Labile, Restricted, Blunted Memory Intact: Immediate, Comment (poor) Hallucinations: Other (denies) Delusions: Yes Delusion Type: Paranoid, Other (denies) Suicidal: Ideation (denies) Homicidal: Ideation (denies) Insight/Judgement Impaired. Vitals/IOs Vital Signs Date Time Temp Pulse Resp B/P Pulse Ox O2 Delivery O2 Flow Rate FiO2 05/15/16 06:03 97.3 46 16 100/65 05/14/16 18:50 99 Assessment & Plan Problem List: (1) Adjustment disorder with mixed disturbance of emotions and conduct ICD Code: F43.25 Assessment & Plan Estimated LOS: 2-3 days patient remains easily agitated, argumentative, cross, irritable and labile. She has an incomplete understanding of her physical illnesses and wants to refuse her medications for no good reason. This physician feels she remains unable to care for herself and requires placement. Justification for Cont. Inpt. Patient is unable to care for herself. Elder Santana MD May 15, 2016 11:06
[2016-05-15 20:18] VITALS: BP 117/72; PULSE 85; RESP 16; TEMP 97.8; O2SAT 99
[2016-05-15] MEDS: AMITRIPTYLINE HCL 25 MG TAB PO SCH (20:23)
[2016-05-15] MEDS: PREGABALIN 75 MG CAP PO SCH (20:24)
[2016-05-16 06:04] VITALS: BP 103/61; PULSE 92; RESP 18; TEMP 98.2; O2SAT 96
[2016-05-16] MEDS: carBAMazepine 200 MG TAB PO SCH ×2 (08:40→21:36)
[2016-05-16] MEDS: guaiFENesin E.R. 600 MG TAB PO SCH ×2 (08:40→21:36)
[2016-05-16] MEDS: MILNACIPRAN 25 MG PO SCH (08:40)
--- NOTE | 2016-05-16 12:40 | HHI.PYPN ---
Subjective Remarks Patient remains medically compromised and inconsistently compliant from a psychiatric standpoint. Review of Systems ROS Limitations: Clinical Condition Except as stated in HPI: all other systems reviewed are Neg Objective Alert: Yes [place]: Person, Place Mood: Agitated, Other (irritable) Affect: Labile, Restricted, Blunted Memory Intact: Immediate, Comment (poor) Hallucinations: Other (denies) Delusions: Yes Delusion Type: Paranoid, Other (denies) Suicidal: Ideation (denies) Homicidal: Ideation (denies) Insight/Judgement Impaired Vitals/IOs Vital Signs Date Time Temp Pulse Resp B/P Pulse Ox O2 Delivery O2 Flow Rate FiO2 05/16/16 06:04 98.2 92 18 103/61 96 Assessment & Plan Problem List: (1) Adjustment disorder with mixed disturbance of emotions and conduct ICD Code: F43.25 Assessment & Plan Estimated LOS: 7 days patient has multiple physical problems and does not care for herself or take her medicines as prescribed. This physician plans to place her in some type of correction facility. Justification for Cont. Inpt. Patient remains unable to care for herself. Elder Santana MD May 16, 2016 12:40
[2016-05-16 19:26] VITALS: BP 127/74; PULSE 80; RESP 16; TEMP 98.3; O2SAT 99
[2016-05-16] MEDS: PREGABALIN 75 MG CAP PO SCH (21:36)
[2016-05-16] MEDS: AMITRIPTYLINE HCL 25 MG TAB PO SCH (21:37)
[2016-05-17 06:21] VITALS: BP 90/53; PULSE 73; RESP 18; TEMP 97.7; O2SAT 96
[2016-05-17] MEDS: MILNACIPRAN 25 MG PO SCH (08:32)
[2016-05-17] MEDS: LORATADINE 10 MG TAB PO SCH (09:22)
[2016-05-17] MEDS: carBAMazepine 200 MG TAB PO SCH ×2 (09:22→21:28)
[2016-05-17] MEDS: guaiFENesin E.R. 600 MG TAB PO SCH ×2 (09:23→21:00)
[2016-05-17 18:26] VITALS: BP 139/86; PULSE 86; RESP 16; TEMP 98.1; O2SAT 98
--- NOTE | 2016-05-17 20:49 | HHI.PYPN ---
Subjective Remarks Pt seen and discussed with staff. Pt has been isolative to her room with minimal engagement. She is compliant and cooperative with medications and denies side effects. She is very guarded during interview and answers questions with one word answers and resists efforts to engage. No agitation or behavioral concerns. Objective Alert: Yes [place]: Person, Place Mood: Calm, Other (irritable) Affect: Restricted Memory Intact: Comment (poor) Hallucinations: Other (denies) Delusions: No Delusion Type: Other (none) Suicidal: Ideation (denies) Homicidal: Ideation (denies) Insight/Judgement poor Vitals/IOs Vital Signs Date Time Temp Pulse Resp B/P Pulse Ox O2 Delivery O2 Flow Rate FiO2 05/17/16 18:26 98.1 86 16 139/86 98 Assessment & Plan Problem List: (1) Adjustment disorder with mixed disturbance of emotions and conduct ICD Code: F43.25 Assessment & Plan Continue current tx plan. Estimated LOS: days Justification for Cont. Inpt. impairments in self care, risk of decompensation Aissatou Tellez MD May 17, 2016 20:49
[2016-05-17] MEDS: PREGABALIN 75 MG CAP PO SCH (21:28)
[2016-05-17] MEDS: AMITRIPTYLINE HCL 25 MG TAB PO SCH (21:28)
[2016-05-18 05:08] VITALS: BP 101/53; PULSE 75; RESP 16; TEMP 97.5; O2SAT 96
[2016-05-18] MEDS: guaiFENesin E.R. 600 MG TAB PO SCH ×2 (09:00→20:50)
[2016-05-18] MEDS: MILNACIPRAN 25 MG PO SCH (09:00)
[2016-05-18] MEDS: carBAMazepine 200 MG TAB PO SCH ×2 (09:00→20:51)
[2016-05-18] MEDS: LORATADINE 10 MG TAB PO SCH (09:00)
[2016-05-18 18:16] VITALS: BP 140/74; PULSE 75; RESP 16; TEMP 97.9; O2SAT 96
--- NOTE | 2016-05-18 18:54 | HHI.PYPN ---
Subjective Remarks Pt seen and discussed with staff. Pt has been less seclusive and spent about 2 hours in day room today. She is compliant with medications. No SI/HI Objective Alert: Yes [place]: Person, Place Mood: Calm, Other (irritable) Affect: Restricted Memory Intact: Comment (poor) Hallucinations: Other (denies) Delusions: No Delusion Type: Other (none) Suicidal: Ideation (denies) Homicidal: Ideation (denies) Insight/Judgement poor Vitals/IOs Vital Signs Date Time Temp Pulse Resp B/P Pulse Ox O2 Delivery O2 Flow Rate FiO2 05/18/16 18:16 97.9 75 16 140/74 96 Assessment & Plan Problem List: (1) Adjustment disorder with mixed disturbance of emotions and conduct ICD Code: F43.25 Assessment & Plan Continue current tx plan. Estimated LOS: days Justification for Cont. Inpt. risk of decompensation Aissatou Tellez MD May 18, 2016 18:54
[2016-05-18] MEDS: AMITRIPTYLINE HCL 25 MG TAB PO SCH (20:50)
[2016-05-18] MEDS: PREGABALIN 75 MG CAP PO SCH (20:50)
[2016-05-18] MEDS: LORazepam 0.5 MG TAB PO PRN (20:51)
[2016-05-19 05:07] VITALS: BP 139/73; PULSE 85; RESP 18; TEMP 97.8; O2SAT 97
[2016-05-19] MEDS: LORATADINE 10 MG TAB PO SCH (08:41)
[2016-05-19] MEDS: guaiFENesin E.R. 600 MG TAB PO SCH ×2 (08:41→21:20)
[2016-05-19] MEDS: carBAMazepine 200 MG TAB PO SCH ×2 (08:41→21:20)
[2016-05-19] MEDS: MILNACIPRAN 25 MG PO SCH (09:00)
[2016-05-19 12:54] VITALS: BP 123/72; PULSE 91; RESP 16; TEMP 98.3; O2SAT 97
[2016-05-19 13:51] VITALS: BP 134/81; PULSE 81; RESP 16; TEMP 98.1; O2SAT 99
--- NOTE | 2016-05-19 14:24 | HHI.PYPN ---
Subjective Remarks Patient seen in her wheelchair in her room with nurse Fausto. Patient calm pleasant with me did remember me from a few days ago patient said she slipped on the floor is no complaints of pain is able to move all 4 extremities without difficulty. Otherwise patient continues to wait for placement. She denies suicidality homicidality voices or visions. She also continues isolate though she appears to have note problems with that. We'll check Tegretol level in a.m. Review of Systems Except as stated in HPI: all other systems reviewed are Neg Objective Alert: Yes [place]: Person, Place Mood: Calm, Other (irritable) Affect: Restricted Memory Intact: Comment (poor) Hallucinations: Other (denies) Delusions: No Delusion Type: Other (none) Suicidal: Ideation (denies) Homicidal: Ideation (denies) Insight/Judgement Poor Vitals/IOs Vital Signs Date Time Temp Pulse Resp B/P Pulse Ox O2 Delivery O2 Flow Rate FiO2 05/19/16 13:51 98.1 81 16 134/81 99 Assessment & Plan Problem List: (1) Adjustment disorder with mixed disturbance of emotions and conduct ICD Code: F43.25 Assessment & Plan Estimated LOS: days patient continues calm cooperative coping with placement issues. No complaints of pain after having a fall on her buttocks and towards her right hip does no wall 4 extremities well Justification for Cont. Inpt. At this time patient will decompensate if placed in a lower level of care Discharge Planning To be determined Renzo Camejo MD May 19, 2016 14:24
[2016-05-19 19:46] VITALS: BP 145/86; PULSE 81; RESP 18; TEMP 97.8; O2SAT 99
[2016-05-19] MEDS: PREGABALIN 75 MG CAP PO SCH (21:19)
[2016-05-19] MEDS: AMITRIPTYLINE HCL 25 MG TAB PO SCH (21:20)
[2016-05-20 05:59] VITALS: BP 92/55; PULSE 83; RESP 16; TEMP 97; O2SAT 96
[2016-05-20] MEDS: MILNACIPRAN 25 MG PO SCH (09:00)
[2016-05-20] MEDS: carBAMazepine 200 MG TAB PO SCH ×2 (10:28→21:02)
[2016-05-20] MEDS: guaiFENesin E.R. 600 MG TAB PO SCH ×2 (10:28→21:02)
[2016-05-20] MEDS: LORATADINE 10 MG TAB PO SCH (10:28)
[2016-05-20 17:30] VITALS: BP 131/87; PULSE 86; RESP 16; O2SAT 95
[2016-05-20] MEDS: PREGABALIN 75 MG CAP PO SCH (21:01)
[2016-05-20] MEDS: AMITRIPTYLINE HCL 25 MG TAB PO SCH (21:02)
[2016-05-21 04:00] VITALS: BP 100/60; PULSE 85; RESP 16; TEMP 99.1; O2SAT 95
[2016-05-21] MEDS: guaiFENesin E.R. 600 MG TAB PO SCH ×2 (08:52→20:45)
[2016-05-21] MEDS: carBAMazepine 200 MG TAB PO SCH ×2 (08:52→20:46)
[2016-05-21] MEDS: MILNACIPRAN 25 MG PO SCH (08:52)
[2016-05-21] MEDS: LORATADINE 10 MG TAB PO SCH (08:52)
--- NOTE | 2016-05-21 15:53 | HHI.PYPN ---
Subjective Remarks This is the psychiatry progress note for 05/20/2016. The patient is more calm and cooperative today. At this point medications appear to be properly adjusted but the patient remains unable to care for herself. Review of Systems ROS Limitations: Clinical Condition Objective Alert: Yes [place]: Person, Place Mood: Calm, Other (irritable) Affect: Restricted Memory Intact: Comment (poor) Hallucinations: Other (denies) Delusions: No Delusion Type: Other (none) Suicidal: Ideation (denies) Homicidal: Ideation (denies) Insight/Judgement Impaired but baseline. Vitals/IOs Vital Signs Date Time Temp Pulse Resp B/P Pulse Ox O2 Delivery O2 Flow Rate FiO2 05/21/16 04:00 99.1 85 16 100/60 95 Assessment & Plan Problem List: (1) Adjustment disorder with mixed disturbance of emotions and conduct ICD Code: F43.25 Assessment & Plan Estimated LOS: 2-3 days due to the combination of her physical limitations and her emotional fragility, the patient remains unable to care for herself, easily upset and easily distracted. She also represents a significant fall risk. Justification for Cont. Inpt. Unable to care for self. Elder Santana MD May 21, 2016 15:53
--- NOTE | 2016-05-21 15:55 | HHI.PYPN ---
Subjective Remarks Patient was fairly calm and cooperative today. She remains at high risk for falls and requires assistance with activities of daily living. Review of Systems ROS Limitations: Clinical Condition Objective Alert: Yes [place]: Person, Place, Situation Mood: Calm, Other (irritable) Affect: Restricted Memory Intact: Comment (poor) Hallucinations: Other (denies) Delusions: No Delusion Type: Other (none) Suicidal: Ideation (denies) Homicidal: Ideation (denies) Insight/Judgement Mildly to moderately impaired. Vitals/IOs Vital Signs Date Time Temp Pulse Resp B/P Pulse Ox O2 Delivery O2 Flow Rate FiO2 05/21/16 04:00 99.1 85 16 100/60 95 Assessment & Plan Problem List: (1) Adjustment disorder with mixed disturbance of emotions and conduct ICD Code: F43.25 Assessment & Plan 2 days Estimated LOS: days patient continues to be unable to care for herself and requires nursing assistance and staff assistance for activities of daily living. Justification for Cont. Inpt. Unable to care for self. Elder Santana MD May 21, 2016 15:54
[2016-05-21 19:34] VITALS: BP 138/74; PULSE 93; RESP 18; TEMP 98.5; O2SAT 98
[2016-05-21] MEDS: AMITRIPTYLINE HCL 25 MG TAB PO SCH (20:45)
[2016-05-21] MEDS: PREGABALIN 75 MG CAP PO SCH (20:46)
[2016-05-22 06:29] VITALS: BP 103/64; PULSE 75; RESP 18; O2SAT 96
[2016-05-22] MEDS: MILNACIPRAN 25 MG PO SCH (09:00)
[2016-05-22] MEDS: LORATADINE 10 MG TAB PO SCH (09:11)
[2016-05-22] MEDS: carBAMazepine 200 MG TAB PO SCH ×2 (09:11→20:39)
[2016-05-22] MEDS: guaiFENesin E.R. 600 MG TAB PO SCH ×2 (09:12→20:38)
[2016-05-22 19:03] VITALS: BP 138/82; PULSE 93; RESP 16; TEMP 97.9; O2SAT 96
[2016-05-22] MEDS: PREGABALIN 75 MG CAP PO SCH (20:38)
[2016-05-22] MEDS: AMITRIPTYLINE HCL 25 MG TAB PO SCH (20:51)
[2016-05-23 06:12] VITALS: BP 114/63; PULSE 88; RESP 18; TEMP 98.2; O2SAT 97
[2016-05-23] MEDS: MILNACIPRAN 25 MG PO SCH (09:00)
[2016-05-23] MEDS: LORATADINE 10 MG TAB PO SCH (09:25)
[2016-05-23] MEDS: carBAMazepine 200 MG TAB PO SCH ×2 (09:26→20:22)
[2016-05-23] MEDS: guaiFENesin E.R. 600 MG TAB PO SCH ×2 (09:26→20:22)
--- NOTE | 2016-05-23 14:26 | HHI.PYPN ---
Subjective Remarks This is the progress note from May 22, 2016. Patient's condition is unchanged. She is calm and pleasant and cooperative. Review of Systems ROS Limitations: Clinical Condition Except as stated in HPI: all other systems reviewed are Neg Objective Alert: Yes [place]: Person, Place, Date, Situation Mood: Calm, Other (irritable) Affect: Restricted Memory Intact: Comment (poor) Hallucinations: Other (denies) Delusions: No Delusion Type: Other (none) Suicidal: Ideation (denies) Homicidal: Ideation (denies) Insight/Judgement Adequate Vitals/IOs Vital Signs Date Time Temp Pulse Resp B/P Pulse Ox O2 Delivery O2 Flow Rate FiO2 05/23/16 06:12 98.2 88 18 114/63 97 Intake and Output 05/22/16 05/22/16 05/23/16 08:00 16:00 00:00 Intake Total 360 ml Balance 360 ml Assessment & Plan Problem List: (1) Adjustment disorder with mixed disturbance of emotions and conduct ICD Code: F43.25 Assessment & Plan Estimated LOS: 3 days days Justification for Cont. Inpt. Unable to care for self Elder Santana MD May 23, 2016 14:26
--- NOTE | 2016-05-23 14:27 | HHI.PYPN ---
Subjective Remarks Patient's condition again remains unchanged. She is waiting placement. She has reached maximum improvement from this hospital stay. Review of Systems ROS Limitations: Clinical Condition Except as stated in HPI: all other systems reviewed are Neg Objective Alert: Yes [place]: Person, Place, Date, Situation Mood: Calm, Other (irritable) Affect: Restricted Memory Intact: Comment (poor) Hallucinations: Other (denies) Delusions: No Delusion Type: Other (none) Suicidal: Ideation (denies) Homicidal: Ideation (denies) Insight/Judgement Adequate Vitals/IOs Vital Signs Date Time Temp Pulse Resp B/P Pulse Ox O2 Delivery O2 Flow Rate FiO2 05/23/16 06:12 98.2 88 18 114/63 97 Intake and Output 05/22/16 05/22/16 05/23/16 08:00 16:00 00:00 Intake Total 360 ml Balance 360 ml Assessment & Plan Problem List: (1) Adjustment disorder with mixed disturbance of emotions and conduct ICD Code: F43.25 Assessment & Plan Estimated LOS: 2 days days Justification for Cont. Inpt. Unable to care for self. Elder Santana MD May 23, 2016 14:27
[2016-05-23] MEDS: AMITRIPTYLINE HCL 25 MG TAB PO SCH (20:22)
[2016-05-23] MEDS: PREGABALIN 75 MG CAP PO SCH (20:22)
[2016-05-23 20:56] VITALS: BP 147/85; PULSE 80; RESP 17; TEMP 98.4; O2SAT 99
[2016-05-24] MEDS: guaiFENesin E.R. 600 MG TAB PO SCH ×2 (08:39→21:17)
[2016-05-24] MEDS: carBAMazepine 200 MG TAB PO SCH ×2 (08:39→21:16)
[2016-05-24] MEDS: LORATADINE 10 MG TAB PO SCH (08:39)
[2016-05-24] MEDS: MILNACIPRAN 25 MG PO SCH (08:40)
--- NOTE | 2016-05-24 15:30 | HHI.PYPN ---
Subjective Remarks Patient was seen and case discussed with nursing. Patient is pleasant and cooperative with exam. She is seen engaging with another patient playing cards. Says she is hoping for discharge soon. She is compliant with her medications. Thought process is mildly disorganized. Denies suicidal ideation intent or plan Objective Alert: Yes [place]: Person, Place, Date, Situation Mood: Calm, Other (irritable) Affect: Blunted Memory Intact: Comment (fair) Hallucinations: Other (denies) Delusions: No Delusion Type: Other (none) Suicidal: Ideation (denies) Homicidal: Ideation (denies) Insight/Judgement Improving Vitals/IOs Vital Signs Date Time Temp Pulse Resp B/P Pulse Ox O2 Delivery O2 Flow Rate FiO2 05/23/16 20:56 98.4 80 17 147/85 99 Assessment & Plan Problem List: (1) Adjustment disorder with mixed disturbance of emotions and conduct ICD Code: F43.25 Assessment & Plan Continue current treatment plan Justification for Cont. Inpt. Patient will decompensate in a less restrictive setting Kale Pendleton DO May 24, 2016 15:30
[2016-05-24 17:45] VITALS: BP 130/80; PULSE 89; RESP 16; TEMP 98.7; O2SAT 99
[2016-05-24] MEDS: AMITRIPTYLINE HCL 25 MG TAB PO SCH (21:15)
[2016-05-24] MEDS: PREGABALIN 75 MG CAP PO SCH (21:15)
[2016-05-25 06:27] VITALS: BP 93/54; PULSE 82; RESP 16; TEMP 97.4; O2SAT 94
[2016-05-25] MEDS: guaiFENesin E.R. 600 MG TAB PO SCH ×2 (09:00→22:05)
[2016-05-25] MEDS: MILNACIPRAN 25 MG PO SCH (09:00)
[2016-05-25] MEDS: LORATADINE 10 MG TAB PO SCH (09:00)
[2016-05-25] MEDS: carBAMazepine 200 MG TAB PO SCH ×2 (09:00→22:06)
--- NOTE | 2016-05-25 12:43 | HHI.PYPN ---
Subjective Remarks Patient was seen and case discussed with nursing. Patient remains pleasant and cooperative with exam. She is blunted, hyperverbal with a delay thought process. Denies any psychotic symptoms. Denies suicidal ideation intent or plan. Compliant with medications Objective Alert: Yes [place]: Person, Place, Date Mood: Calm, Other (irritable) Affect: Restricted Memory Intact: Comment (not tested) Hallucinations: Other (denies) Delusions: No Delusion Type: Other (none) Suicidal: Ideation (denies) Homicidal: Ideation (denies) Insight/Judgement Improving Vitals/IOs Vital Signs Date Time Temp Pulse Resp B/P Pulse Ox O2 Delivery O2 Flow Rate FiO2 05/25/16 06:27 97.4 82 16 93/54 94 Assessment & Plan Problem List: (1) Adjustment disorder with mixed disturbance of emotions and conduct ICD Code: F43.25 Assessment & Plan Continue current treatment plan Justification for Cont. Inpt. Patient will decompensate in a less restrictive setting Kale Pendleton DO May 25, 2016 12:43
[2016-05-25 18:34] VITALS: BP 135/85; PULSE 83; RESP 16; TEMP 98.3; O2SAT 98
[2016-05-25] MEDS: PREGABALIN 75 MG CAP PO SCH ×2 (22:05→23:22)
[2016-05-25] MEDS: AMITRIPTYLINE HCL 25 MG TAB PO SCH (22:06)
[2016-05-26 05:43] VITALS: BP 102/63; PULSE 85; RESP 17; TEMP 98.8; O2SAT 97
[2016-05-26] MEDS: MILNACIPRAN 25 MG PO SCH (08:28)
[2016-05-26] MEDS: LORATADINE 10 MG TAB PO SCH (09:04)
[2016-05-26] MEDS: carBAMazepine 200 MG TAB PO SCH ×2 (09:04→21:22)
[2016-05-26] MEDS: guaiFENesin E.R. 600 MG TAB PO SCH ×2 (09:04→21:22)
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
[2016-05-26] MEDS ORDERED: AMIT1TAB79 PO (11:04)
[2016-05-26] MEDS ORDERED: LORA-361 PO (11:04)
[2016-05-26] MEDS ORDERED: LYRI75CA PO (11:04)
[2016-05-26] MEDS ORDERED: ROPI1TAB72 PO (11:04)
[2016-05-26] MEDS ORDERED: TIZA4 PO (11:04)
[2016-05-26] MEDS ORDERED: CARB200T PO (11:04)
[2016-05-26] MEDS ORDERED: MUCI600T PO (11:04)
[2016-05-26] MEDS ORDERED: OXYC-392 PO (11:04)
[2016-05-26 16:59] VITALS: BP 135/82; PULSE 96; RESP 18; TEMP 98.2; O2SAT 96
[2016-05-26] MEDS: AMITRIPTYLINE HCL 25 MG TAB PO SCH (21:22)
[2016-05-26] MEDS ORDERED: PREGABALIN 75 MG CAP PO ONE (22:15)
[2016-05-27 06:39] VITALS: BP 121/70; PULSE 76; RESP 18; TEMP 97.2; O2SAT 97
[2016-05-27] MEDS: carBAMazepine 200 MG TAB PO SCH ×2 (08:52→21:04)
[2016-05-27] MEDS: LORATADINE 10 MG TAB PO SCH (08:52)
[2016-05-27] MEDS: guaiFENesin E.R. 600 MG TAB PO SCH ×2 (08:52→21:04)
[2016-05-27] MEDS: MILNACIPRAN 25 MG PO SCH (08:53)
--- NOTE | 2016-05-27 09:59 | HHI.PYPN ---
Subjective Remarks Discharge held yesterday because of receiving facility. Review of Systems ROS Limitations: Clinical Condition Objective Alert: Yes [place]: Person, Place, Date Mood: Calm, Other (irritable) Affect: Restricted Memory Intact: Comment (not tested) Hallucinations: Other (denies) Delusions: No Delusion Type: Other (none) Suicidal: Ideation (denies) Homicidal: Ideation (denies) Insight/Judgement Adequate Vitals/IOs Vital Signs Date Time Temp Pulse Resp B/P Pulse Ox O2 Delivery O2 Flow Rate FiO2 05/27/16 06:39 97.2 76 18 121/70 97 Assessment & Plan Problem List: (1) Adjustment disorder with mixed disturbance of emotions and conduct ICD Code: F43.25 Assessment & Plan Estimated LOS: 1 days Justification for Cont. Inpt. Patient not excepted. Elder Santana MD May 27, 2016 09:59
[2016-05-27 17:57] VITALS: BP 123/78; PULSE 80; RESP 18; TEMP 98.1; O2SAT 98
[2016-05-27] MEDS: PREGABALIN 75 MG CAP PO SCH (21:04)
[2016-05-27] MEDS: AMITRIPTYLINE HCL 25 MG TAB PO SCH (21:04)
[2016-05-28 06:00] VITALS: BP 112/66; PULSE 74; RESP 18; TEMP 97.1; O2SAT 96
[2016-05-28] MEDS: MILNACIPRAN 25 MG PO SCH (09:00)
[2016-05-28] MEDS: carBAMazepine 200 MG TAB PO SCH ×2 (09:42→20:38)
[2016-05-28] MEDS: LORATADINE 10 MG TAB PO SCH (09:42)
[2016-05-28] MEDS: guaiFENesin E.R. 600 MG TAB PO SCH ×2 (09:42→20:38)
--- NOTE | 2016-05-28 12:57 | HHI.PYPN ---
Subjective Remarks Patient is stable. Waiting on placement at [facility]. Review of Systems ROS Limitations: Clinical Condition Objective Alert: Yes [place]: Person, Place, Date Mood: Calm, Other (irritable) Affect: Restricted Memory Intact: Comment (not tested) Hallucinations: Other (denies) Delusions: No Delusion Type: Other (none) Suicidal: Ideation (denies) Homicidal: Ideation (denies) Insight/Judgement Adequate Vitals/IOs Vital Signs Date Time Temp Pulse Resp B/P Pulse Ox O2 Delivery O2 Flow Rate FiO2 05/28/16 06:00 97.1 74 18 112/66 96 Assessment & Plan Problem List: (1) Adjustment disorder with mixed disturbance of emotions and conduct ICD Code: F43.25 Assessment & Plan Estimated LOS:1 days Justification for Cont. Inpt. Placement issue Elder Santana MD May 28, 2016 12:57
[2016-05-28 17:10] VITALS: BP 134/85; PULSE 87; RESP 20; TEMP 98.2; O2SAT 97
[2016-05-28] MEDS: AMITRIPTYLINE HCL 25 MG TAB PO SCH (20:38)
[2016-05-28] MEDS: PREGABALIN 75 MG CAP PO SCH (20:39)
[2016-05-29 05:26] VITALS: BP 95/60; PULSE 78; RESP 17; TEMP 98.1; O2SAT 93
[2016-05-29] MEDS: MILNACIPRAN 25 MG PO SCH (09:00)
[2016-05-29] MEDS: guaiFENesin E.R. 600 MG TAB PO SCH ×2 (09:00→20:23)
[2016-05-29] MEDS: LORATADINE 10 MG TAB PO SCH (09:03)
[2016-05-29] MEDS: carBAMazepine 200 MG TAB PO SCH ×2 (09:04→20:23)
--- NOTE | 2016-05-29 11:12 | HHI.PYPN ---
Subjective Remarks Stable. Awaiting placement. Review of Systems ROS Limitations: Clinical Condition Objective Alert: Yes [place]: Person, Place, Date Mood: Calm, Other (irritable) Affect: Restricted Memory Intact: Comment (not tested) Hallucinations: Other (denies) Delusions: No Delusion Type: Other (none) Suicidal: Ideation (denies) Homicidal: Ideation (denies) Insight/Judgement Adequate Vitals/IOs Vital Signs Date Time Temp Pulse Resp B/P Pulse Ox O2 Delivery O2 Flow Rate FiO2 05/29/16 05:26 98.1 78 17 95/60 93 Intake and Output 05/28/16 05/28/16 05/29/16 08:00 16:00 00:00 Intake Total 360 ml Balance 360 ml Assessment & Plan Problem List: (1) Adjustment disorder with mixed disturbance of emotions and conduct ICD Code: F43.25 Assessment & Plan Estimated LOS: 3 days awaiting placement. Justification for Cont. Inpt. Unable to care for self. Elder Santana MD May 29, 2016 11:12
[2016-05-29] MEDS: PREGABALIN 75 MG CAP PO SCH (20:23)
[2016-05-29] MEDS: AMITRIPTYLINE HCL 25 MG TAB PO SCH (20:23)
[2016-05-29 21:53] VITALS: BP 156/86; PULSE 87; RESP 16; TEMP 97.3; O2SAT 94
[2016-05-30 06:26] VITALS: BP 106/60; PULSE 81; RESP 16; TEMP 97.1; O2SAT 97
[2016-05-30] MEDS: MILNACIPRAN 25 MG PO SCH (09:00)
[2016-05-30] MEDS: guaiFENesin E.R. 600 MG TAB PO SCH (09:00)
[2016-05-30] MEDS: LORATADINE 10 MG TAB PO SCH (09:35)
[2016-05-30] MEDS: carBAMazepine 200 MG TAB PO SCH (09:35)
== END 2016-05-30 11:00 | DRG 882 ==
LOC: NEPE 16:25 → H250 04-30 11:53 → NEPJ 04-30 12:23 → H260 05-07 21:45 → UNDODISIN 05-30 11:00
PROVIDERS: ADMIT Psychiatry & Neurology Psychiatry; ATTEND Psychiatry & Neurology Psychiatry
DX: F43.25 Adjustment disorder with mixed disturbance of emotions and conduct (principal); Z91.19 Patient's noncompliance with other medical treatment and regimen; R26.9 Unspecified abnormalities of gait and mobility; Z86.69 Personal history of other diseases of the nervous system and sense organs; M79.7 Fibromyalgia; G43.909 Migraine, unspecified, not intractable, without status migrainosus; G47.00 Insomnia, unspecified; Z91.81 History of falling; Z91.040 Latex allergy status
CPT/HCPCS: 80048; 80053; 80061; 80156; 80307; 81001; 83036; 85025; 99285

== ENCOUNTER 2017-01-16 05:20 | Observation (INO) | payer MEDICARE, MEDICAID ==
[~2017-01-16] VITALS: Ht 162.6 cm; Wt 69.5 kg
[~2017-01-16 05:20] MED LIST changes: +ACET325T PO; -ACET650T10 PO; -ALEN70TA39 PO; +AMIT1TAB79 PO; -ASCO500C PO; +ASPI1TAB93 PO; -CALC600T10; +CARB200T PO; -CARB300C PO; -CLIN1CAP6 PO; +FEXO1TAB41 PO; -FLORPAK2 PO; +FLUT1SPR5 EACH NARE; +IMIT100T PO; -LEVA500T33 PO; +LORA-361 PO; +LORA10TA PO; +LYRI75CA PO; +MILKSUS PO; +MUCI600T PO; -MULT1TAB46; +OXYC-392 PO; +OXYC-395 PO; -OXYC10TA8 PO; -POTA75TA PO; -RANI75TA8 PO; -ROPI1TAB; +ROPI1TAB PO; +ROPI1TAB72 PO; +TEMA15CA PO; -TIZA2TAB PO; +TIZA4 PO; -VITA-13 PO; -WAL-10TA2 PO; +ZANA2CAP PO; -ZINC220C3 PO; +ZOLP10TA3 PO; -ZOLP5TAB3 PO
[2017-01-16] MEDS ORDERED: POVIDONE IODINE 5% (ANTISEPSIS KIT) 4 APPLICATIONS EACH NARE PRN (06:00)
[2017-01-16] MEDS ORDERED: CHLORHEXIDINE GLUCONATE 2 % 1 PACK (2 CLOTHS) TOPICAL PRN (06:00)
[2017-01-16] MEDS ORDERED: LACTATED RINGER'S 1000 ML IV PRN (06:00)
[2017-01-16] MEDS ORDERED: METOPROLOL TARTRATE 25 MG TAB PO PRN (06:00)
[2017-01-16] MEDS ORDERED: SODIUM CHLORID 0.9% 500 ML IV PRN (06:00)
[2017-01-16] MEDS ORDERED: AMIT100T2 PO (06:40)
[2017-01-16] MEDS ORDERED: AMIT25TA9 PO (06:53)
[2017-01-16] MEDS ORDERED: HUMIBIDDM PO (06:53)
[2017-01-16] MEDS ORDERED: MAPA325T PO (06:53)
[2017-01-16] MEDS ORDERED: LORA-650 PO (06:53)
[2017-01-16] MEDS ORDERED: CLON0.5T PO (06:53)
[2017-01-16] MEDS ORDERED: PREG300 PO (06:53)
[2017-01-16] MEDS ORDERED: HYDR-3583 PO (06:53)
[2017-01-16] MEDS ORDERED: VANCOMYCIN 1000 MG/NS 250 ML (for <70 kg) IV SCH ×2 (07:15)
[2017-01-16] MEDS ORDERED: CHLORHEXIDINE GLUCONATE 4% SOLN 120 ML BTL TOPICAL SCH (07:15)
[2017-01-16] MEDS ORDERED: ceFAZolin 2 GM PREMIX 50 ML IV SCH (07:15)
[2017-01-16] MEDS ORDERED: ACETAMINOPHEN 1000 MG/100 ML 100 ML IV ONE (07:17)
[2017-01-16] MEDS ORDERED: GENTAMICIN SULFATE 80 MG/2 ML VIAL ONE (07:31)
[2017-01-16] MEDS ORDERED: HYDR-3366 PO (09:29)
[2017-01-16] MEDS ORDERED: SODIUM CHLORIDE 0.9% FLUSH 5 ML FLUSH IVF PRN (09:30)
[2017-01-16] MEDS ORDERED: ONDANSETRON HCL 4 MG/2 ML VIAL IVP PRN (09:30)
[2017-01-16] MEDS ORDERED: diphenhydrAMINE HCL 25 MG CAP PO PRN (09:30)
[2017-01-16] MEDS ORDERED: MORPHINE SULFATE 4 MG/ML INJ IV PUSH PRN (09:30)
--- NOTE | 2017-01-16 09:32 | PD.OP ---
cc: Dion Caro MD Operative Report Date of Surgery: Jan 16, 2017 Preoperative Diagnosis: Delayed healing right humerus fracture Postoperative Diagnosis: Procedure: Open reduction internal fixation right humerus fracture Surgeon: Dion Caro Public Health Microbiologist(s): SHARLENE Hanson PA-C The surgical procedure was assisted by my physician esl instructional assistant. My P.A. presence was necessary throughout this case for the manipulation and positioning of the surgical extremity. My P.A. was assisting me throughout the duration of this procedure. The skill set of a physician esl instructional assistant was medically necessary to complete this procedure. During the surgical case the oil burner technician was working at the back table and the physician esl instructional assistant was directly assisting me. Operation and Findings: Patient was seen and evaluated preoperatively. Patient had a right humerus fracture proximal to 5 weeks ago. She had significant displacement of the fracture. Treatment options were discussed regarding humerus fracture including surgical and nonsurgical treatments. After detailed discussion of risk and benefits of procedure patient wishes to proceed with surgery. Risks of surgery include bleeding, infection, nonunion, malunion, painful hardware, loss of motion of shoulder and elbow, weakness and numbness of arm, as well as medical competitions including blood clots stroke and . Patient was brought to operating room and placed on the OR table. GETA was administered by anesthesiologist. Operative arm and shoulder were prepped with alcohol followed by Hibiclens and draped usual sterile fashion. Timeout procedure was performed. IV antibiotics were given prior to incision. A standard anterior approach was utilized. Subcutaneous tissues was dissected with Bovie. Cephalic vein was identified and protected. Proximally the deltopectoral interval was opened. Distally the brachialis was split. The fracture was identified. There was an area of comminution. Soft tissue was removed from the fracture site. There was significant fracture callus forming. The fracture was mobilized to allow for reduction. Reduction was difficult secondary to the delayed nature of surgery. A screw was placed in each side of the fracture. A laminar pecan sheller was now used to gently distract the fracture back to anatomic length. Fracture site was cleaned with curettes. At this point the fracture was reduced using fracture tenaculums. Multiplanar fluoroscopy confirmed excellent of fracture. 3.5 cortical lag screws were placed to compress the oblique segment of the fracture. A Synthes 3.5 proximal humerus plate was contoured to fit the humerus. Plate was provisionally held the bone with K wires. 3.5 cortical screws were placed on each side of the fracture. Multiple locking screws were placed into the humeral head. Multiple screws were placed in each side of the fracture. All screws were predrilled and premeasured for appropriate length. Final fluoroscopy revealed excellent alignment of fracture with well-placed hardware. Incision was thoroughly irrigated. Fascia was closed with #1 Vicryl, subcutaneous tissues closed with 3 -0 Vicryl, and skin was closed with ida. Sterile dressings were applied. Needle and sponge counts were correct. Patient was placed into a sling, and then transferred to recovery room in stable condition Dion Caro MD Jan 16, 2017 09:32
--- NOTE | 2017-01-16 09:55 | RADRPT ---
EXAM DATE/TIME: 01/16/2017 09:13 [facility] COMPARISON: No previous studies available for comparison. INDICATIONS : Surgical repair, ORIF of proximal right humerus. MEDICAL HISTORY : None. SURGICAL HISTORY : None. ENCOUNTER: Initial ACUITY: 1 day PAIN SCORE: Non-responsive. LOCATION: Right humerus. FINDINGS: Multiple cone down views of the femur were obtained and demonstrate the patient status post open of r igid internal fixation with screw-plate fixation device transfixing a proximal and mid humeral fractu re. Fracture fragments are in near anatomic alignment. There is mild overlying artifact. CONCLUSION: Status post open rigid internal fixation. Jaylen Reyes MD on January 16, 2017 at 9:52 Board Certified Radiologist. This report was verified electronically.
[2017-01-16] MEDS ORDERED: DO NOT ADM ANY ANTICOAGULANT DRUGS PRN (09:57)
[2017-01-16] MEDS ORDERED: *morphine SULFATE 8 MG/ML PERIprocedure ONLY ONE ×2 (10:07→10:18)
[2017-01-16] MEDS ORDERED: *HYDROmorphone PF 1 MG VIAL PERIprocedural Use ONLY ONE (10:29)
[2017-01-16] MEDS ORDERED: ERGOCALCIFEROL (VIT D2) 50,000 UNIT CAP PO SCH (11:00)
[2017-01-16] MEDS: CALCIUM/VITAMIN D 250 MG/125 U TAB PO SCH ×2 (12:34→14:56)
[2017-01-16] MEDS: ACETAMINOPHEN/HYDROcodone 325 MG/10 MG TAB PO PRN ×3 (14:51→22:46)
[2017-01-16] MEDS: ceFAZolin 2 GM PREMIX 50 ML IV SCH ×2 (14:54→22:46)
--- NOTE | 2017-01-16 15:20 | EKG ---
Date Performed: 01/16/2017 Time Performed: 06:19:18 PTAGE: 56 years EKG: Sinus rhythm NORMAL ECG NO PREVIOUS TRACING DOCTOR: Elder Elder Interpretating Date/Time 01/16/2017 15:18:47
[2017-01-16 15:51] VITALS: BP 130/83; PULSE 96; RESP 17; TEMP 97.3; O2SAT 97
[2017-01-16 20:00] VITALS: BP 137/93; PULSE 100; RESP 17; TEMP 97.5; O2SAT 98
[2017-01-16] MEDS: SODIUM CHLORIDE 0.9% FLUSH 5 ML FLUSH IVF SCH (20:04)
[2017-01-16] MEDS: DOCUSATE SODIUM 50 MG/SENNA 8.6 MG TAB PO SCH (20:04)
[2017-01-16] MEDS ORDERED: CALCTAB19 PO (20:36)
[2017-01-16] MEDS ORDERED: VITA500012 PO (20:36)
--- NOTE | 2017-01-16 20:37 | HHI.FF ---
Face to Face Verification Diagnosis: (1) Comminuted right humeral fracture with delayed healing Occupational Therapy Right UE Weight Bearing: Non WB Right UE Range of Motion: Pendular Nursing Dressing Changes: Daily dressing change, Xeroform, Coverderm/Primapore I have seen patient Andra Malone on 01/16/17. My clinical findings support the need for the requested home health care services because: Limited ability to care for self I certify that my clinical findings support that this patient is homebound because: Post-op weakness Jaylen Ocampo Jr. Jan 16, 2017 20:37
[2017-01-16] MEDS ORDERED: AMITRIPTYLINE HCL 25 MG TAB PO SCH (21:00)
[2017-01-16] MEDS ORDERED: SUMAtriptan SUCCINATE 50 MG TAB PO PRN (21:00)
[2017-01-16] MEDS ORDERED: PREGABALIN 100 MG CAP PO SCH (21:00)
[2017-01-16 21:40] VITALS: O2SAT 98
[2017-01-17] VITALS: BP 134/79; PULSE 87; RESP 16; TEMP 97.2; O2SAT 95
[2017-01-17] MEDS ORDERED: MAGNESIUM HYDROXIDE SUSP 30 ML CUP PO PRN (00:15)
[2017-01-17 04:00] VITALS: BP 118/68; PULSE 93; RESP 17; TEMP 96.4; O2SAT 98
[2017-01-17] MEDS: ACETAMINOPHEN/HYDROcodone 325 MG/10 MG TAB PO PRN ×3 (04:17→13:35)
--- NOTE | 2017-01-17 06:58 | PD.ORT.PN ---
Subjective Subjective Remarks Resting comfortably with pain controlled Objective Vitals Vital Signs Date Time Temp Pulse Resp B/P (MAP) Pulse Ox O2 Delivery O2 Flow Rate FiO2 01/17/17 04:00 96.4 93 17 118/68 (85) 98 01/17/17 00:00 97.2 87 16 134/79 (97) 95 01/16/17 21:40 98 Nasal Cannula 2.00 01/16/17 20:01 98 Nasal Cannula 2.00 01/16/17 20:00 97.5 100 17 137/93 (108) 98 01/16/17 15:51 97.3 96 17 130/83 (99) 97 01/16/17 11:00 72 16 141/88 (105) 99 Nasal Cannula 3 01/16/17 10:45 70 16 140/80 (100) 98 Nasal Cannula 3 01/16/17 10:30 65 13 127/72 (90) 99 Nasal Cannula 3 01/16/17 10:15 73 12 125/69 (87) 100 Nasal Cannula 3 01/16/17 10:02 97.1 68 18 121/69 (86) 100 Nasal Cannula 3 I/O 01/16/17 01/16/17 01/16/17 01/17/17 01/17/17 01/17/17 07:00 15:00 23:00 07:00 15:00 23:00 Intake Total 900 ml 480 ml 120 ml Output Total 250 ml Balance 650 ml 480 ml 120 ml Intake Oral 480 ml 120 ml Other 900 ml Output Estimated Blood Loss 250 ml # Voids 1 1 Imaging Last 72 hours Impressions Humerus X-Ray 01/16/17 0000 Signed Impressions: Service Date/Time: Monday, January 16, 2017 09:13 - CONCLUSION: Status post open rigid internal fixation. Jaylen Reyes MD Objective Remarks Right upper extremity: Clean dry dressings intact. Sling and swath in place. Distally intact sensation over radial ulnar and median nerve distributions with good capillary refills. Full extension and flexion of all fingers Assessment & Plan Problem List: (1) Comminuted right humeral fracture with delayed healing ICD Codes: S42.351G - Displaced comminuted fracture of shaft of humerus, right arm, subsequent encounter for fracture with delayed healing Assessment and Plan Right humeral shaft fracture with delayed healing ORIF POD 1 Nonweightbearing right upper extremity Sling and swath at all times except for pendulum swings which need to be performed 2-3 times a day Daily dressing changes beginning POD 2 Discharge to group home facility Up with Dr. Caro or PA in 2 weeks Jaylen Ocampo Jr. Jan 17, 2017 06:58
[2017-01-17 08:10] VITALS: BP 118/70; PULSE 96; RESP 18; TEMP 97.4; O2SAT 95
[2017-01-17] MEDS: SODIUM CHLORIDE 0.9% FLUSH 5 ML FLUSH IVF SCH (09:00)
[2017-01-17] MEDS: ceFAZolin 2 GM PREMIX 50 ML IV SCH (09:00)
[2017-01-17] MEDS ORDERED: CHOLECALCIFEROL (VIT D3) 1000 UNIT TAB PO SCH (09:00)
[2017-01-17] MEDS ORDERED: LORATADINE 10 MG TAB PO SCH (09:00)
[2017-01-17] MEDS: DOCUSATE SODIUM 50 MG/SENNA 8.6 MG TAB PO SCH (09:01)
[2017-01-17] MEDS: CALCIUM/VITAMIN D 250 MG/125 U TAB PO SCH ×2 (09:01→13:00)
[2017-01-17] MEDS ORDERED: LIDOCAINE HCL 1% PF 5 ML SYRINGE OTHER ONE (12:00)
[2017-01-17] MEDS ORDERED: NEOSTIGMINE 3 MG/3 ML SYR IV ONE (12:00)
[2017-01-17] MEDS ORDERED: ROCURONIUM INJ 50 MG/5 ML SYRINGE IV PUSH ONE (12:00)
[2017-01-17] MEDS ORDERED: ONDANSETRON HCL 4 MG/2 ML VIAL IV PUSH ONE (12:00)
[2017-01-17] MEDS ORDERED: PROPOFOL 200 MG/20 ML AMP IV ONE (12:00)
[2017-01-17] MEDS ORDERED: ePHEDrine/NS 25 MG/5 ML SYR IV ONE (12:00)
[2017-01-17] MEDS ORDERED: DEXAMETHASONE SOD PHOS 4 MG/ML VIAL IV ONE (12:00)
[2017-01-17] MEDS ORDERED: PHENYLEPH/NS 1000 MCG/10 ML SYR IV ONE (12:00)
[2017-01-17 12:30] VITALS: O2SAT 94
== END 2017-01-17 14:30 ==
LOC: HSDC 05:20 → EDSTATUS 08:00 → HSDI 09:28 → N06B 11:23
PROVIDERS: ADMIT Orthopaedic Surgery Orthopaedic Trauma; ATTEND Orthopaedic Surgery Orthopaedic Trauma
DX: S42.351G Displaced comminuted fracture of shaft of humerus, right arm, subsequent encounter for fracture with delayed healing (principal); Z01.810 Encounter for preprocedural cardiovascular examination
CPT/HCPCS: 01740; 24515; 73060; 76000; 93005; 96365; 96375; 96376; 97167; C1713; G0378; G8987; G8988; J0131; J0690; J1100; J1170; J1580; J2270; J2370; J2405; J2710; J3010; J3370; J7050; J7120

== ENCOUNTER 2017-02-05 14:20 | Inpatient (IN) | payer MEDICARE, MEDICAID ==
[~2017-02-05] VITALS: Ht 162.6 cm; Wt 84.6 kg
[~2017-02-05 14:20] MED LIST changes: -ACET325T PO; -AMIT1TAB79 PO; +AMIT25TA9 PO; -ASPI1TAB93 PO; +CALCTAB19 PO; -CARB200T PO; +CLON0.5T PO; -FEXO1TAB41 PO; -FLUT1SPR5 EACH NARE; +HYDR-3366 PO; +HYDR-3583 PO; -LORA-361 PO; +LORA-650 PO; -LORA10TA PO; -LYRI150C PO; -LYRI75CA PO; +MAPA325T PO; -MILKSUS PO; -MILN25 PO; -MUCI600T PO; -OXYC-392 PO; -OXYC-395 PO; +PREG300 PO; -ROPI1TAB PO; -TEMA15CA PO; -TIZA4 PO; +VITA500012 PO; -ZANA2CAP PO; -ZOLP10TA3 PO
[2017-02-05 14:34] VITALS: BP 125/78; PULSE 101; RESP 18; TEMP 98.2; O2SAT 98
[2017-02-05 14:40] VITALS: BP 125/78; PULSE 101; RESP 18; TEMP 98.2; O2SAT 98
[2017-02-05] MEDS ORDERED: PIPERACIL-TAZO 4.5 GM PREMIX 100 ML IV STA (14:40)
--- NOTE | 2017-02-05 14:44 | PD ---
HPI Chief Complaint: Skin Problem Time Seen by Provider: 14:35 Travel History International Travel<30 days: No Contact w/Intl Traveler<30days: No Traveled to known affect area: No History of Present Illness HPI 56-year-old female patient with history of right humeral OR after done by Dr. Caro last month, has been at a nursing care facility, and had her ida taken out 2 days ago, since then there has been increased redness, pain, swelling at the right site of surgery. She denies any fevers or any other issues. Modifying Factors: None Associated Signs & Symptoms: Right humeral area surgical site pain, swelling, redness Risk Factors: None PFSH Past Medical History Anxiety: Yes Depression: Yes Cancer: No Cardiovascular Problems: No Cerebrovascular Accident: Yes (Hx of CVA/TIA) Diabetes: No Endocrine: No Fibromyalgia: Yes Gastrointestinal Disorders: Yes (GERD) Genitourinary: No Headaches: No Hepatitis: No Hiatal Hernia: No Immune Disorder: No Insomnia: Yes Medical other: Yes (MIGRAINES) Musculoskeletal: Yes (BACK PAIN) Neurologic: Yes (Guillain-Goessel Syndrome) Psychiatric: Yes (adjustment disorder) Reproductive: No Respiratory: No Migraines: Yes Seizures: Yes Thyroid Disease: No Tetanus Vaccination: Unknown Influenza Vaccination: No ?: Not Past Surgical History Abdominal Surgery: No AICD: No Body Medical Devices: N/A Cardiac Surgery: No Ear Surgery: No Endocrine Surgery: No Eye Surgery: No Genitourinary Surgery: No Gynecologic Surgery: No Joint Replacement: Yes (rt partial hip replacement) Oral Surgery: No Pacemaker: No Thoracic Surgery: No Other Surgery: Yes (back surgery) Social History Alcohol Use: No Tobacco Use: No Substance Use: No (1 BEER/WK) Allergies-Medications (Allergen,Severity, Reaction): Coded Allergies: latex (Unverified Allergy, Severe, 02/05/17) topiramate (Unverified Allergy, Severe, 02/05/17) Reported Meds & Prescriptions Reported Meds & Active Scripts Active Calcium 600+D 200 (Calcium Carbonate-Vitamin D) 600-200 Mg-Unit Tab 1 Tab PO BID Ergocalciferol 50,000 Unit Cap 50,000 Units PO Q7D [place] (Hydrocodone-Acetaminophen) 10-325 Mg Tab 1 Tab PO Q3HR PRN Requip (Ropinirole) 1 Mg Tab 1 Mg PO HS Reported Hydrocodone-Acetaminophen 10-325 mg Tab 1 Tab PO Q4H PRN Clonazepam 0.5 Mg Tab 0.5 Mg PO PRN Mapap (Acetaminophen) 325 Mg Tab 325 Mg PO Q4-6H PRN Lyrica (Pregabalin) 300 Mg Cap 300 Mg PO HS Allergy Relief (Loratadine) 10 Mg Tab 10 Mg PO DAILY Amitriptyline (Amitriptyline HCl) 25 Mg Tab 25 Mg PO HS Imitrex (Sumatriptan Succinate) 100 Mg Tab 100 Mg PO HS PRN If a satisfactory response has not been obtained at 2 hours, a second dose may be administered Review of Systems Except as stated in HPI: all other systems reviewed are Neg Physical Exam Narrative GENERAL: Well-developed middle age white female patient currently in mild distress. Awake and oriented 3. SKIN: Focused skin assessment warm/dry. HEAD: Atraumatic. Normocephalic. EYES: Pupils equal and round. No scleral icterus. No injection or drainage. ENT: No nasal bleeding or discharge. Mucous membranes pink and moist. NECK: Trachea midline. No JVD. CARDIOVASCULAR: Regular rate and rhythm. No murmur appreciated. RESPIRATORY: No accessory muscle use. Clear to auscultation. Breath sounds equal bilaterally. GASTROINTESTINAL: Abdomen soft, non-tender, nondistended. Hepatic and splenic margins not palpable. MUSCULOSKELETAL: No obvious deformities. No clubbing. No cyanosis. No edema. Right arm: There is notable erythema, tenderness, induration surrounding the surgical site which appears well-healed. I do not feel any signs of fluctuance. NEUROLOGICAL: Awake and alert. No obvious cranial nerve deficits. Motor grossly within normal limits. Normal speech. PSYCHIATRIC: Appropriate mood and affect; insight and judgment normal. Data Data Last Documented VS Vital Signs Date Time Temp Pulse Resp B/P (MAP) Pulse Ox O2 Delivery O2 Flow Rate FiO2 02/05/17 14:42 101 18 02/05/17 14:40 98.2 125/78 (94) 98 Room Air Orders Orders Sepsis Workup Initiated (02/05/17 ) Complete Blood Count With Diff (02/05/17 14:35) Comprehensive Metabolic Panel (02/05/17 14:35) Lactic Acid Sepsis Protocol (02/05/17 14:35) Blood Culture (02/05/17 14:35) Blood Glucose (02/05/17 14:35) Ecg Monitoring (02/05/17 14:35) Iv Access Insert/Monitor (02/05/17 14:35) Oximetry (02/05/17 14:35) Oxygen Administration (02/05/17 14:35) Humerus (Min 2vws) (02/05/17 14:35) Us Arm Venous Doppler (02/05/17 14:35) Morphine Inj (Morphine Inj) (02/05/17 14:45) Ondansetron Inj (Zofran Inj) (02/05/17 14:45) Piperacil-Tazo 4.5 Gm Premix (Zosyn 4.5 (02/05/17 14:40) Consult Orthopedic (02/05/17 ) Admit Order (Ed Use Only) (02/05/17 16:00) Labs Laboratory Tests Test 02/05/17 14:50 White Blood Count 8.2 TH/MM3 Red Blood Count 3.87 MIL/MM3 Hemoglobin 11.4 GM/DL Hematocrit 34.6 % Mean Corpuscular Volume 89.3 FL Mean Corpuscular Hemoglobin 29.4 PG Mean Corpuscular Hemoglobin Concent 32.9 % Red Cell Distribution Width 13.6 % Platelet Count 246 TH/MM3 Mean Platelet Volume 8.0 FL Neutrophils (%) (Auto) 68.8 % Lymphocytes (%) (Auto) 18.3 % Monocytes (%) (Auto) 10.5 % Eosinophils (%) (Auto) 2.0 % Basophils (%) (Auto) 0.4 % Neutrophils # (Auto) 5.6 TH/MM3 Lymphocytes # (Auto) 1.5 TH/MM3 Monocytes # (Auto) 0.9 TH/MM3 Eosinophils # (Auto) 0.2 TH/MM3 Basophils # (Auto) 0.0 TH/MM3 CBC Comment DIFF FINAL Differential Comment Blood Urea Nitrogen 6 MG/DL Creatinine 0.64 MG/DL Random Glucose 106 MG/DL Total Protein 8.0 GM/DL Albumin 2.8 GM/DL Calcium Level 9.1 MG/DL Alkaline Phosphatase 174 U/L Aspartate Amino Transf (AST/SGOT) 29 U/L Alanine Aminotransferase (ALT/SGPT) 17 U/L Total Bilirubin 0.6 MG/DL Sodium Level 137 MEQ/L Potassium Level 3.9 MEQ/L Chloride Level 100 MEQ/L Carbon Dioxide Level 31.0 MEQ/L Anion Gap 6 MEQ/L Estimat Glomerular Filtration Rate 95 ML/MIN Lactic Acid Level 1.7 mmol/L MDM Medical Decision Making Medical Screen Exam Complete: Yes Emergency Medical Condition: Yes Medical Record Reviewed: Yes Interpretation(s) Laboratory Tests Test 02/05/17 14:50 Red Blood Count 3.87 MIL/MM3 (4.00-5.30) Hemoglobin 11.4 GM/DL (11.6-15.3) Hematocrit 34.6 % (35.0-46.0) Monocytes (%) (Auto) 10.5 % (0.0-8.0) Blood Urea Nitrogen 6 MG/DL (7-18) Albumin 2.8 GM/DL (3.4-5.0) Alkaline Phosphatase 174 U/L (45-117) Differential Diagnosis Right arm surgical site pain, redness, swelling: Cellulitis versus wound infection versus osteomyelitis versus DVT Narrative Course There is significant edema, induration, erythema of the right arm concerning for underlying cellulitis at the very least. Ultrasound was done to rule out DVT, shows no signs of DVT but found that there is a underlying 15 cm area of fluid collection under the surgical site. Considering the induration, there is concern that this is an abscess or possibly an infected hematoma. Case was discussed with Dr. Caro's PA who talked to Dr. Caro and they would like her to be medically admitted and kept nothing by mouth after midnight for possible need for drainage. IV is back to have been given to the patient after cultures are drawn. Case was then discussed with Dr. Crump for admission. Diagnosis Primary Impression: Local infection of skin and subcutaneous tissue Admitting Information Admitting Physician Requests: Admit Ari Dooley MD Feb 05, 2017 14:44
[2017-02-05] MEDS ORDERED: ONDANSETRON HCL 4 MG/2 ML VIAL IV PUSH ONE (14:45)
[2017-02-05] MEDS ORDERED: MORPHINE SULFATE 2 MG/ML INJ IV PUSH ONE (14:45)
[2017-02-05 15:22] LABS: AUTOMATED NEUTROPHIL # 5.6 TH/MM3 (1.8-7.7); BASOPHIL % 0.4 % (0.0-2.0); EOSINOPHIL # 0.2 TH/MM3 (0-0.4); HEMATOCRIT 34.6 % (35.0-46.0); HEMO FLAGS DIFF FINAL; LYMPH % 18.3 % (9.0-44.0); LYMPHOCYTE # 1.5 TH/MM3 (1.0-4.8); MEAN CELL VOLUME 89.3 FL (80.0-100.0); MEAN CORPUSCULAR HEMOGLOBIN 29.4 PG (27.0-34.0); MEAN CORPUSCULAR HGB CONC 32.9 % (32.0-36.0); MONO % 10.5 % (0.0-8.0); NEUT % 68.8 % (16.0-70.0); PLATELET COUNT 246 TH/MM3 (150-450); RED BLOOD COUNT 3.87 MIL/MM3 (4.00-5.30); RED CELL DISTRIBUTION WIDTH 13.6 % (11.6-17.2); WHITE BLOOD COUNT 8.2 TH/MM3 (4.0-11.0)
--- NOTE | 2017-02-05 15:32 | RADRPT ---
EXAM DATE/TIME: 02/05/2017 15:00 [facility] COMPARISON: No previous studies available for comparison. INDICATIONS : Pain in arm since surgery January 26 2017. MEDICAL HISTORY : Gastroesophageal reflux disease. Cerebrovascular disease. Cerebral vascular accident. 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 Fibromyalgia. SURGICAL HISTORY : Cholecystectomy. Oophprectomy. Orthopedic surgery. Spinal surgery. Right hip replacement. Right an kle surgery. Right arm surgery. ENCOUNTER: Initial ACUITY: 2 weeks PAIN SCORE: 10/10 LOCATION: Right arm. FINDINGS: There is spontaneous flow documented in the brachial, basilic, cephalic, axillary, and subclavian vei ns. The vessels are compressible and augmentation response is documented. No filling defects are se en. The flow is phasic with respiration. Direction of flow in the jugular vein is caudal. In the mid right anterior arm there is a hypoechoic avascular collection measuring 15.7 x 2.8 x 6.1 c m. This finding is located deep to an area of stitches. CONCLUSION: 1. No DVT is identified in the right upper extremity or internal jugular vein. 2. There is a complex fluid collection in the mid anterior arm measuring up to 15 cm. Renzo Baugh MD on February 05, 2017 at 15:29 Board Certified Radiologist. This report was verified electronically.
[2017-02-05 15:41] LABS: ALKALINE PHOSPHATASE 174 U/L (45-117); TOTAL BILIRUBIN ADULT 0.6 MG/DL (0.2-1.0)
[2017-02-05 15:44] LABS: ALT (GPT) 17 U/L (10-53); ANION GAP 6 MEQ/L (5-15); AST (GOT) 29 U/L (15-37); BLOOD UREA NITROGEN 6 MG/DL (7-18); CHLORIDE 100 MEQ/L (98-107); GLOMERULAR FILTRATION RATE 95 ML/MIN (>89); SODIUM (NA) 137 MEQ/L (136-145)
[2017-02-05 15:55] LABS: POTASSIUM 3.9 MEQ/L (3.5-5.1)
[2017-02-05] MEDS ORDERED: ACETAMINOPHEN 325 MG TAB PO PRN (16:00)
[2017-02-05] MEDS ORDERED: SODIUM CHLORIDE 0.9% FLUSH 10 ML FLUSH IV FLUSH PRN (16:00)
[2017-02-05] MEDS ORDERED: NALOXONE HCL 0.4 MG/ML AMP IV PUSH PRN (16:00)
[2017-02-05] MEDS ORDERED: LACTULOSE SYRUP 20 GM/30 ML CUP PO PRN (16:00)
[2017-02-05] MEDS ORDERED: BISACODYL 10 MG SUPP RECTAL PRN (16:00)
[2017-02-05] MEDS ORDERED: SENNOSIDES 8.6 MG TAB PO PRN (16:00)
[2017-02-05] MEDS ORDERED: MAGNESIUM HYDROXIDE SUSP 30 ML CUP PO PRN (16:00)
--- NOTE | 2017-02-05 16:28 | RADRPT ---
EXAM DATE/TIME: 02/05/2017 15:52 [place] COMPARISON: HUMERUS RIGHT (MIN 2VWS), January 16, 2017, 9:13. INDICATIONS : Possible infection. MEDICAL HISTORY : None. SURGICAL HISTORY : right humerus surgery 12/2016 ENCOUNTER: Initial ACUITY: 3 days PAIN SCORE: 0/10 LOCATION: Right humerus FINDINGS: 2 views of the right humerus demonstrate a lateral femoral sideplate with multiple interlocking screw s. 2 lag screws remain present. The 2 lag screws do not appear as well seated within the bone as prev ious. There is a mildly displaced butterfly fragment and the distal fragment may be displaced lateral ly greater than the intraoperative images. There is mineralization within the surrounding soft tissue s. CONCLUSION: 1. Less than optimal examination given the orientation with lack of a true lateral and AP projection. 2. However, the butterfly fragment appears to have increased displacement as does the distal fragment . Additionally, the lag screws do not appear to be seated within the bone as much as on the intraoper ative fluoroscopic images. Renzo Baugh MD on February 05, 2017 at 16:24 Board Certified Radiologist. This report was verified electronically.
[2017-02-05] MEDS: SODIUM CHLOR 0.9% 1000 ML INJ 1,000 ML IV SCH (16:56)
[2017-02-05 17:03] VITALS: BP 123/75; PULSE 93; RESP 17; O2SAT 96
[2017-02-05 17:50] VITALS: BP 123/75; TEMP 98.2
--- NOTE | 2017-02-05 18:05 | HHI.HP ---
HPI Service [facility] Primary [facility] Physician Leander Wells MD Admission Diagnosis right arm cellulitis/abscess Diagnoses: Chief Complaint: right arm pain , surgical wound infection Travel History International Travel<30 Days: No Contact w/Intl Traveler <30 Da: No Traveled to Known Affected Are: No History of Present Illness 56-year-old female patient with history of right humeral OR after done by Dr. Caro last month, has been at a nursing care facility, and had her ida taken out 2 days ago, since then there has been increased redness, pain, swelling at the right site of surgery. She denies any fevers or any other issues. Denies any fever or chills at this time. No nausea or vomiting or diarrhea or constipation. Denies chest pain or shortness of breath. Review of Systems ROS Limitations: Poor Historian Except as stated in HPI: all other systems reviewed are Neg Past Family Social History Past Medical History Hx of CVA/TIA, GERD, history of migraine, Guillain-Childress syndrome, adjustment disorder/depression/anxiety, Past Surgical History Right partial hip replacement, recent right humeral surgery, back surgery, hand surgery Reported Medications Reported Meds & Active Scripts Active Calcium 600+D 200 (Calcium Carbonate-Vitamin D) 600-200 Mg-Unit Tab 1 Tab PO BID Ergocalciferol 50,000 Unit Cap 50,000 Units PO Q7D [place] (Hydrocodone-Acetaminophen) 10-325 Mg Tab 1 Tab PO Q3HR PRN Requip (Ropinirole) 1 Mg Tab 1 Mg PO HS Reported Hydrocodone-Acetaminophen 10-325 mg Tab 1 Tab PO Q4H PRN Clonazepam 0.5 Mg Tab 0.5 Mg PO PRN [place] (Acetaminophen) 325 Mg Tab 325 Mg PO Q4-6H PRN Lyrica (Pregabalin) 300 Mg Cap 300 Mg PO HS Allergy Relief (Loratadine) 10 Mg Tab 10 Mg PO DAILY Amitriptyline (Amitriptyline HCl) 25 Mg Tab 25 Mg PO HS Imitrex (Sumatriptan Succinate) 100 Mg Tab 100 Mg PO HS PRN If a satisfactory response has not been obtained at 2 hours, a second dose may be administered Allergies: Coded Allergies: latex (Unverified Allergy, Severe, 02/05/17) topiramate (Unverified Allergy, Severe, 02/05/17) Family History Parents and siblings are healthy Social History Denies alcohol use, illicit drug use or tobacco use. Physical Exam Vital Signs Vital Signs Date Time Temp Pulse Resp B/P (MAP) Pulse Ox O2 Delivery O2 Flow Rate FiO2 02/05/17 17:50 98.2 93 17 123/75 (91) 96 02/05/17 17:03 93 17 123/75 (91) 96 Room Air 02/05/17 14:42 101 18 02/05/17 14:40 98.2 101 18 125/78 (94) 98 Room Air 02/05/17 14:40 98.2 101 18 125/78 (94) 98 Room Air 02/05/17 14:40 98 Room Air 02/05/17 14:34 98.2 101 18 125/78 (94) 98 Physical Exam GENERAL: This is a well-nourished, well-developed patient, in no apparent distress. SKIN: No rashes, ecchymoses or lesions. Cool and dry. HEAD: Atraumatic. Normocephalic. No temporal or scalp tenderness. EYES: Pupils equal round and reactive. Extraocular motions intact. No scleral icterus. No injection or drainage. ENT: Nose without bleeding, purulent drainage or septal hematoma. Throat without erythema, tonsillar hypertrophy or exudate. Uvula midline. Airway patent. NECK: Trachea midline. No JVD or lymphadenopathy. Supple, nontender, no meningeal signs. CARDIOVASCULAR: Regular rate and rhythm without murmurs, gallops, or rubs. RESPIRATORY: Clear to auscultation. Breath sounds equal bilaterally. No wheezes , rales, or rhonchi. GASTROINTESTINAL: Abdomen soft, non-tender, nondistended. No hepato-splenomegaly , or palpable masses. No guarding. MUSCULOSKELETAL: Right arm: There is notable erythema, tenderness, induration surrounding the surgical site which appears well-healed, nu fluctuation. Extremities without clubbing, cyanosis, or edema. NNo calf tenderness. Negative Homans sign bilaterally. NEUROLOGICAL: Awake and alert. Cranial nerves II through XII intact. Motor and sensory grossly within normal limits. Normal speech. Laboratory Laboratory Tests Test 02/05/17 14:50 White Blood Count 8.2 Red Blood Count 3.87 Hemoglobin 11.4 Hematocrit 34.6 Mean Corpuscular Volume 89.3 Mean Corpuscular Hemoglobin 29.4 Mean Corpuscular Hemoglobin Concent 32.9 Red Cell Distribution Width 13.6 Platelet Count 246 Mean Platelet Volume 8.0 Neutrophils (%) (Auto) 68.8 Lymphocytes (%) (Auto) 18.3 Monocytes (%) (Auto) 10.5 Eosinophils (%) (Auto) 2.0 Basophils (%) (Auto) 0.4 Neutrophils # (Auto) 5.6 Lymphocytes # (Auto) 1.5 Monocytes # (Auto) 0.9 Eosinophils # (Auto) 0.2 Basophils # (Auto) 0.0 CBC Comment DIFF FINAL Differential Comment Blood Urea Nitrogen 6 Creatinine 0.64 Random Glucose 106 Total Protein 8.0 Albumin 2.8 Calcium Level 9.1 Alkaline Phosphatase 174 Aspartate Amino Transf (AST/SGOT) 29 Alanine Aminotransferase (ALT/SGPT) 17 Total Bilirubin 0.6 Sodium Level 137 Potassium Level 3.9 Chloride Level 100 Carbon Dioxide Level 31.0 Anion Gap 6 Estimat Glomerular Filtration Rate 95 Lactic Acid Level 1.7 Date/Time Source Procedure Growth Status 02/05/17 14:55 Blood Peripheral Aerobic Blood Culture Pending Received 02/05/17 14:55 Blood Peripheral Anaerobic Blood Culture Pending Received Result Diagram: 02/05/17 1450 02/05/17 1450 Imaging Last Impressions Upper Extremity Ultrasound 02/05/175 Signed Impressions: Service Date/Time: January 15:00 - CONCLUSION: 1. No DVT is identified in the right upper extremity or internal jugular vein. 2. There is a complex fluid collection in the mid anterior arm measuring up to 15 cm. Renzo Baugh MD Humerus X-Ray 02/05/17 1435 Signed Impressions: Service Date/Time: January 15:52 - CONCLUSION: 1. Less than optimal examination given the orientation with lack of a true lateral and AP projection. 2. However, the butterfly fragment appears to have increased displacement as does the distal fragment. Additionally, the lag screws do not appear to be seated within the bone as much as on the intraoperative fluoroscopic images. MD Ovidio Zamora VTE Risk Assessment Caprini VTE Risk Assessment: Mod/High Risk (score >= 2) Caprini Risk Assessment Model Point Value = 1 Point Value = 2 Point Value = 3 Point Value = 5 Age 41-60 Minor surgery BMI > 25 kg/m2 Swollen legs Varicose veins or History of unexplained or recurrent spontaneous Oral contraceptives or hormone replacement Sepsis (< 1 month) Serious lung disease, including pneumonia (< 1 month) Abnormal pulmonary function Acute myocardial infarction Congestive heart failure (< 1 month) History of inflammatory bowel disease Medical patient at bed rest Age 61-74 Arthroscopic surgery Major open surgery (> 45 min) Laparoscopic surgery (> 45 min) Malignancy Confined to bed (> 72 hours) Immobilizing plaster cast Central venous access Age >= 75 History of VTE Family history of VTE Factor V Leiden Prothrombin [id number] Lupus anticoagulant Anticardiolipin antibodies Elevated serum homocysteine Heparin-induced thrombocytopenia Other congenital or acquired thrombophilia Stroke (< 1 month) Elective arthroplasty Hip, pelvis, or leg fracture Acute spinal cord injury (< 1 month) Prophylaxis Regimen Total Risk Factor Score Risk Level Prophylaxis Regimen 0-1 Low Early ambulation 2 Moderate Order ONE of the following: *Sequential Compression Device (SCD) *Heparin 5000 units SQ BID 3-4 Higher Order ONE of the following medications: *Heparin 5000 units SQ TID *Enoxaparin/Lovenox 40 mg SQ daily (WT < 150 kg, CrCl > 30 mL/min) *Enoxaparin/Lovenox 30 mg SQ daily (WT < 150 kg, CrCl > 10-29 mL/min) *Enoxaparin/Lovenox 30 mg SQ BID (WT < 150 kg, CrCl > 30 mL/min) AND/OR *Sequential Compression Device (SCD) 5 or more Highest Order ONE of the following medications: *Heparin 5000 units SQ TID (Preferred with Epidurals) *Enoxaparin/Lovenox 40 mg SQ daily (WT < 150 kg, CrCl > 30 mL/min) *Enoxaparin/Lovenox 30 mg SQ daily (WT < 150 kg, CrCl > 10-29 mL/min) *Enoxaparin/Lovenox 30 mg SQ BID (WT < 150 kg, CrCl > 30 mL/min) AND *Sequential Compression Device (SCD) Assessment and Plan Assessment and Plan 56-year-old female status post right shoulder surgery a month ago and at home with ida removed well 2 days or to admission Local infection of skin and subcutaneous tissue left shoulder postsurgical infection Consult Dr. Caro, keep nothing by mouth after midnight for possible surgery tomorrow A medications for pain scale was normal by mouth and IV morphine as needed. Monitor vital signs mostly. Monitor for altered mental status. Chronic medical problems appears at baseline. Continue home medications as reviewed. DVT prophylaxis SCD/teds/chemotherapy prophylaxis per surgeon Discussed Condition With Discussed with patient, nurse, ED physician Physician Certification 2 Midnight Certification Type: Admission for Inpatient Services Order for Inpatient Services The services are ordered in accordance with Medicare regulations or non- Medicare payer requirements, as applicable. In the case of services not specified as inpatient-only, they are appropriately provided as inpatient services in accordance with the 2-midnight benchmark. Estimated LOS (days): 3 days is the estimated time the patient will need to remain in the hospital, assuming treatment plan goals are met and no additional complications. Post-Hospital Plan: [facility] Porsha Crump MD Feb 05, 2017 18:05
[2017-02-05 18:11] VITALS: BP 142/71; PULSE 100; RESP 17; TEMP 97.5; O2SAT 97
[2017-02-05] MEDS ORDERED: ACETAMINOPHEN/HYDROcodone 325 MG/5 MG TAB PO PRN (19:15)
[2017-02-05] MEDS: PIPERACIL-TAZO 4.5 GM PREMIX 100 ML IV SCH (20:37)
[2017-02-05] MEDS: DOCUSATE SODIUM 50 MG/SENNA 8.6 MG TAB PO SCH ×2 (20:38→21:27)
[2017-02-05] MEDS: SODIUM CHLORIDE 0.9% FLUSH 10 ML FLUSH IV FLUSH SCH (21:00)
[2017-02-05 22:17] VITALS: BP 118/67; PULSE 101; RESP 18; TEMP 100.6; O2SAT 95
[2017-02-06 00:45] VITALS: BP 120/69; PULSE 67; RESP 21; TEMP 97.4; O2SAT 96
[2017-02-06] MEDS: PIPERACIL-TAZO 4.5 GM PREMIX 100 ML IV SCH ×4 (04:13→20:56)
[2017-02-06] MEDS: SODIUM CHLOR 0.9% 1000 ML INJ 1,000 ML IV SCH ×3 (04:19→19:45)
[2017-02-06 05:30] VITALS: BP 125/80; PULSE 78; RESP 20; TEMP 98.3; O2SAT 95
[2017-02-06 06:49] LABS: AUTOMATED NEUTROPHIL # 5.7 TH/MM3 (1.8-7.7); BASOPHIL % 0.5 % (0.0-2.0); EOSINOPHIL # 0.2 TH/MM3 (0-0.4); EOSINOPHIL % 2.6 % (0.0-4.0); HEMATOCRIT 30.3 % (35.0-46.0); HEMO FLAGS DIFF FINAL; LYMPH % 10.8 % (9.0-44.0); LYMPHOCYTE # 0.8 TH/MM3 (1.0-4.8); MEAN CELL VOLUME 89.4 FL (80.0-100.0); MEAN CORPUSCULAR HEMOGLOBIN 30.1 PG (27.0-34.0); MEAN CORPUSCULAR HGB CONC 33.6 % (32.0-36.0); NEUT % 76.1 % (16.0-70.0); PLATELET COUNT 204 TH/MM3 (150-450); RED BLOOD COUNT 3.39 MIL/MM3 (4.00-5.30); RED CELL DISTRIBUTION WIDTH 13.7 % (11.6-17.2); WHITE BLOOD COUNT 7.5 TH/MM3 (4.0-11.0)
--- NOTE | 2017-02-06 06:58 | PD.ORT.PN ---
Subjective Subjective Remarks Andra is a 56-year-old female who underwent open reduction internal fixation of right humerus fracture approximately 3 weeks ago. She presented back to the emergency room with complaints of swelling and some redness along her incision. CT scan identified some fluid underneath the incision. She denies any fevers or chills. Objective Vitals Vital Signs Date Time Temp Pulse Resp B/P (MAP) Pulse Ox O2 Delivery O2 Flow Rate FiO2 02/06/17 05:30 98.3 78 20 125/80 (95) 95 02/06/17 00:45 97.4 67 21 120/69 (86) 96 02/05/17 22:17 100.6 101 18 118/67 (84) 95 02/05/17 18:11 97.5 100 17 142/71 (94) 97 02/05/17 17:50 98.2 93 17 123/75 (91) 96 02/05/17 17:03 93 17 123/75 (91) 96 Room Air 02/05/17 14:42 101 18 02/05/17 14:40 98.2 101 18 125/78 (94) 98 Room Air 02/05/17 14:40 98.2 101 18 125/78 (94) 98 Room Air 02/05/17 14:40 98 Room Air 02/05/17 14:34 98.2 101 18 125/78 (94) 98 I/O 02/05/17 02/05/17 02/05/17 02/06/17 02/06/17 02/06/17 07:00 15:00 23:00 07:00 15:00 23:00 Intake Total 1085 ml Output Total 0 ml Balance 1085 ml Intake Oral 0 ml IV Total 1085 ml Output Urine Total 0 ml # Bowel Movements 0 Result Diagram: 02/06/17 0555 02/05/17 1450 Imaging Last 24 hours Impressions Upper Extremity Ultrasound 02/05/171434 Signed Impressions: Service Date/Time: January 15:00 - CONCLUSION: 1. No DVT is identified in the right upper extremity or internal jugular vein. 2. There is a complex fluid collection in the mid anterior arm measuring up to 15 cm. Renzo Baugh MD Humerus X-Ray 02/05/171434 Signed Impressions: Service Date/Time: January 15:52 - CONCLUSION: 1. Less than optimal examination given the orientation with lack of a true lateral and AP projection. 2. However, the butterfly fragment appears to have increased displacement as does the distal fragment. Additionally, the lag screws do not appear to be seated within the bone as much as on the intraoperative fluoroscopic images. Renzo Baugh MD Objective Remarks Patient is awake and alert. Examination of right arm reveals very mild redness along the incision line. There is an area of fluctuance along the mid incision region. There is no visible drainage. She has mild discomfort with shoulder and elbow motion. Assessment & Plan Assessment and Plan Patient is status post ORIF right humerus 3 weeks ago. She appears to have a hematoma along the incision. At this point I would recommend irrigation and debridement with evacuation of hematoma. We'll also obtain cultures to rule out infection. Patient is in agreement with this plan. All questions were answered. I will plan on surgery today Check intraoperative cultures-- if cultures are positive she will need infectious disease consultation Nonweightbearing right arm OT for passive range of motion of right arm Discharge home Thursday or Thursday if cultures negative A mid-level provider in my office (nurse practitioner or physician editorial assistant) may see this patient on follow-up visits and continue to implement the objectives of this plan including: Starting or adjusting medications, injections , cast application, orthotics, brace application, physical therapy, radiological studies (including x-ray, MRI, CT, ultrasound, bone scan), vascular studies, neurologic studies, specialist consultation, and proceeding with surgical management, as appropriate. Dion Rayo MD Feb 06, 2017 06:58
[2017-02-06 07:02] LABS: BICARBONATE 27.2 MEQ/L (21.0-32.0); POTASSIUM 3.4 MEQ/L (3.5-5.1)
[2017-02-06] MEDS: DOCUSATE SODIUM 50 MG/SENNA 8.6 MG TAB PO SCH ×2 (07:47→20:56)
[2017-02-06 08:00] VITALS: BP 119/68; PULSE 92; RESP 17; TEMP 98.6; O2SAT 94
[2017-02-06] MEDS: SODIUM CHLORIDE 0.9% FLUSH 10 ML FLUSH IV FLUSH SCH ×2 (08:35→20:56)
[2017-02-06] MEDS ORDERED: VANCOMYCIN HCL 1000 MG VIAL ONE ×2 (11:38→12:47)
[2017-02-06] MEDS ORDERED: GENTAMICIN SULFATE 80 MG/2 ML VIAL ONE (11:39)
[2017-02-06] MEDS ORDERED: MIDAZOLAM HCL 2 MG/2 ML VIAL IV ONE (12:00)
[2017-02-06] MEDS ORDERED: LACTATED RINGER'S 1000 ML INJ 1,000 ML IV ONE (12:00)
[2017-02-06] MEDS ORDERED: PHENYLEPH/NS 1000 MCG/10 ML SYR IV ONE (12:00)
[2017-02-06] MEDS ORDERED: PROPOFOL 200 MG/20 ML AMP IV ONE (12:00)
[2017-02-06] MEDS ORDERED: LIDOCAINE HCL 1% PF 5 ML SYRINGE OTHER ONE (12:00)
--- NOTE | 2017-02-06 12:09 | HHI.PR ---
Subjective Remarks Follow-up right arm cellulitis/abscess versus hematoma 02/06/17-patient seen and examined, Tmax 100.6 at 10 PM however currently afebrile. Nothing by mouth pending incision and drainage by orthopedic surgery. Complained of some right arm pain Objective Vitals Vital Signs Date Time Temp Pulse Resp B/P (MAP) Pulse Ox O2 Delivery O2 Flow Rate FiO2 02/06/17 08:00 98.6 92 17 119/68 (85) 94 02/06/17 05:30 98.3 78 20 125/80 (95) 95 02/06/17 00:45 97.4 67 21 120/69 (86) 96 02/05/17 22:17 100.6 101 18 118/67 (84) 95 02/05/17 18:11 97.5 100 17 142/71 (94) 97 02/05/17 17:50 98.2 93 17 123/75 (91) 96 02/05/17 17:03 93 17 123/75 (91) 96 Room Air 02/05/17 14:42 101 18 02/05/17 14:40 98.2 101 18 125/78 (94) 98 Room Air 02/05/17 14:40 98.2 101 18 125/78 (94) 98 Room Air 02/05/17 14:40 98 Room Air 02/05/17 14:34 98.2 101 18 125/78 (94) 98 I/O 02/05/17 02/05/17 02/05/17 02/06/17 02/06/17 02/06/17 07:00 15:00 23:00 07:00 15:00 23:00 Intake Total 1085 ml Output Total 1000 ml Balance 85 ml Intake Oral 0 ml IV Total 1085 ml Output Urine Total 1000 ml # Bowel Movements 0 Result Diagram: 02/06/17 0555 02/06/17 0555 Imaging Last Impressions Upper Extremity Ultrasound 02/05/171434 Signed Impressions: Service Date/Time: January 15:00 - CONCLUSION: 1. No DVT is identified in the right upper extremity or internal jugular vein. 2. There is a complex fluid collection in the mid anterior arm measuring up to 15 cm. Renzo Baugh MD Humerus X-Ray 02/05/171434 Signed Impressions: Service Date/Time: January 15:52 - CONCLUSION: 1. Less than optimal examination given the orientation with lack of a true lateral and AP projection. 2. However, the butterfly fragment appears to have increased displacement as does the distal fragment. Additionally, the lag screws do not appear to be seated within the bone as much as on the intraoperative fluoroscopic images. Rnezo Baugh MD Objective Remarks GENERAL: NAD SKIN: Warm and dry.redness over previous incision ink maker: Normocephalic. EYES: No scleral icterus. No injection or drainage. NECK: Supple, trachea midline. No JVD or lymphadenopathy. CARDIOVASCULAR: Regular rate and rhythm without murmurs, gallops, or rubs. RESPIRATORY: Breath sounds equal bilaterally. No accessory muscle use. GASTROINTESTINAL: Abdomen soft, non-tender, nondistended. MUSCULOSKELETAL: No cyanosis, or edema. RUE: TTP with induration associated with redness BACK: Nontender without obvious deformity. No CVA tenderness. A/P Problem List: (1) Hematoma ICD Code: T14.8XXA - Other injury of unspecified body region, initial encounter (2) Hematoma of arm ICD Code: S40.029A - Contusion of unspecified upper arm, initial encounter (3) Local infection of skin and subcutaneous tissue ICD Code: L08.9 - Local infection of skin and subcutaneous tissue Status: Acute Assessment and Plan 56-year-old female with Cellulitis right upper extremity Abscess versus hematoma right upper extremity Patient is status post Open reduction internal fixation right humerus fracture 01/16/17 Right upper extremity ultrasound noted and review by me with finding of complex fluid collection in right upper anterior arm Orthopedic surgery input appreciated for plan for incision and drainage today 02/06/17 Currently on Zosyn pending fluid culture Pain management accordingly Neuropathy pain Continue Lyrica DT prophylaxis: Bilateral MACKENZIEs Lopez Delgado MD Feb 06, 2017 12:08
[2017-02-06] MEDS ORDERED: VANCOMYCIN HCL 1000 MG VIAL OTHER ONE (13:08)
--- NOTE | 2017-02-06 13:21 | PD.OP ---
cc: Dion Caro MD Operative Report Date of Surgery: Feb 06, 2017 Preoperative Diagnosis: Right shoulder hematoma versus abscess Postoperative Diagnosis: Right shoulder abscess Procedure: Irrigation and debridement of right arm and humerus, placement of antibiotic beads Anesthesia: Gen. Surgeon: Dion Caro [employer] Body Repairer(s): SHARLENE Hinojosa PA-C The surgical procedure was assisted by my physician communication assistant. My P.A. presence was necessary throughout this case for the manipulation and positioning of the surgical extremity. My P.A. was assisting me throughout the duration of this procedure. The skill set of a physician communication assistant was medically necessary to complete this procedure. During the surgical case the surgical asst was working at the back table and the physician communication assistant was directly assisting me. Operation and Findings: Andra is a 56-year-old female known to me from previous open reduction internal fixation right humerus fracture approximately 3 weeks ago. Patient presented to the emergency room with some swelling and redness around the incision. CT scan revealed fluid collection along the incision. Informed consent was obtained for surgery. Operative site was marked. She is brought to operating. She was given IV sedation and general anesthesia. Antibiotics were held until cultures were obtained. Right arm was prepped with alcohol followed Hibiclens and draped usual sterile fashion. Timeout procedure was performed. Procedure began with a 4 inch incision through previous scar. Incision was centered directly over the fluctuant fluid collection. Subcutaneous tissues dissected with Bovie. A large pocket of purulent-appearing drainage was encountered. Cultures were obtained from this fluid. Incision was now extended proximally and distally. An excisional debridement was now performed. Skin subcutaneous tissue fascia and bone were sharply debrided. Curettes and rongeurs were used to debride muscle, fascia, and bone. After thorough debridement the wound was thoroughly irrigated with pulsatile lavage. Overall wound appeared to be clean. At this point decision antibody be placement. 20 cc of stimulant bone cement was mixed with 2 g of vancomycin and 2 g of tobramycin. The cement was made into beads. Once the beads were set the beads were packed around the humerus and hardware. At this point attention was turned to wound closure. Fascia was closed with 0 PDS, subcutaneous tissues closed with 3-0 PDS. Skin was closed with ida. Sterile dressings were applied. Patient was awakened and transferred to recovery room in stable condition. Dion Caro MD Feb 06, 2017 13:21
[2017-02-06] MEDS ORDERED: MORPHINE SULFATE 4 MG/ML INJ IV PUSH PRN (13:30)
[2017-02-06] MEDS ORDERED: ONDANSETRON HCL 4 MG/2 ML VIAL IVP PRN (13:30)
[2017-02-06] MEDS ORDERED: diphenhydrAMINE HCL 25 MG CAP PO PRN (13:30)
[2017-02-06] MEDS ORDERED: DO NOT ADM ANY ANTICOAGULANT DRUGS PRN (13:43)
[2017-02-06] MEDS ORDERED: *morphine SULFATE 8 MG/ML PERIprocedure ONLY ONE ×2 (13:48→14:07)
[2017-02-06] MEDS ORDERED: *HYDROmorphone PF 1 MG VIAL PERIprocedural Use ONLY ONE (14:22)
[2017-02-06] MEDS ORDERED: ERGOCALCIFEROL (VIT D2) 50,000 UNIT CAP PO SCH (15:00)
[2017-02-06] MEDS ORDERED: SODIUM CHLORID 0.9% 500 ML INJ 500 ML IV ONE (16:00)
[2017-02-06] MEDS ORDERED: PHENYLEPH/NS 1000 MCG/10 ML SYR ONE (17:01)
[2017-02-06] MEDS ORDERED: PHENYLEPH/NS 1000 MCG/10 ML SYR IV PUSH ONE (17:15)
[2017-02-06] MEDS ORDERED: NALOXONE HCL 0.4 MG/ML AMP IV PUSH ONE (17:15)
[2017-02-06 17:44] LABS: HEMATOCRIT 24.5 % (35.0-46.0); REVIEW FLAG FINAL
[2017-02-06] MEDS ORDERED: PHENYLEPHRINE HCL 10 MG/ML VIAL ONE (17:44)
[2017-02-06] MEDS ORDERED: SODIUM CHLORID 0.9% 500 ML INJ 500 ML IV SCH (17:47)
--- NOTE | 2017-02-06 17:51 | PD.ID.CON ---
History of Present Illness Service ID Consult Requested By Dr Caro Reason for Consult R humerus infection with recent fracture, ORIF Primary Care Physician Leander Wells MD Diagnoses: History of Present Illness 56-year-old female sp previous open reduction internal fixation right humerus fracture approximately 3 weeks ago who presented to the emergency room with some swelling and redness around the incision. CT scan revealed 15 cm fluid collection along the incision. Pt underwent Irrigation and debridement of right arm and humerus, placement of antibiotic beads for suspected right shoulder hematoma versus abscess by Dr Caro Cultures were obtained and are pending and pt was placed on broad spectrum abx ( zosyn, vancomycin). Apparently after surgery pt developped refractory hypotension and is now requiring pressors She is on low dose of neosynephrine c/o only on R UE pain, o/w feels fine Review of Systems Except as stated in HPI: all other systems reviewed are Neg Past Family Social History Allergies: Coded Allergies: latex (Unverified Allergy, Severe, 02/05/17) topiramate (Unverified Allergy, Severe, 02/05/17) Past Medical History Hx of CVA/TIA, GERD, history of migraine, Guillain-Childress syndrome, adjustment disorder/depression/anxiety, Past Surgical History Right partial hip replacement, recent right humeral surgery, back surgery, hand surgery Active Ordered Medications Medications where reviewed in EMR Antibiotics Include: zosyn vancomycin Family History Parents and siblings are healthy Social History Denies alcohol use, illicit drug use or tobacco use. Physical Exam Vital Signs Vital Signs Date Time Temp Pulse Resp B/P (MAP) Pulse Ox O2 Delivery O2 Flow Rate FiO2 02/06/17 16:15 96 15 90/57 (68) 95 Nasal Cannula 3 02/06/17 16:00 105 15 86/51 (63) 95 Nasal Cannula 3 02/06/17 15:45 106 17 90/51 (64) 97 Nasal Cannula 3 02/06/17 15:30 106 17 82/51 (61) 98 Nasal Cannula 3 02/06/17 15:15 106 17 90/51 (64) 97 Nasal Cannula 3 02/06/17 15:00 106 17 89/54 (66) 96 Nasal Cannula 3 02/06/17 14:45 109 17 89/55 (66) 97 Nasal Cannula 3 02/06/17 14:30 108 17 88/52 (64) 97 Nasal Cannula 3 02/06/17 14:15 102 16 102/59 (73) 96 Nasal Cannula 3 02/06/17 14:00 102 16 101/60 (74) 97 Nasal Cannula 4 02/06/17 13:45 107 16 98/62 (74) 97 Nasal Cannula 4 02/06/17 13:40 98.6 87 16 104/61 (75) 95 Nasal Cannula 4 02/06/17 08:00 98.6 92 17 119/68 (85) 94 02/06/17 05:30 98.3 78 20 125/80 (95) 95 02/06/17 00:45 97.4 67 21 120/69 (86) 96 02/05/17 22:17 100.6 101 18 118/67 (84) 95 02/05/17 18:11 97.5 100 17 142/71 (94) 97 02/05/17 17:50 98.2 93 17 123/75 (91) 96 Physical Exam CONSTITUTIONAL/GENERAL: This is an adequately nourished patient, in no apparent distress. TUBES/LINES/DRAINS: SKIN: No jaundice, rashes, or lesions. . Skin temperature appropriate. Not diaphoretic. HEAD: Atraumatic. Normocephalic. EYES: Pupils equal and round and reactive. Extraocular motions intact. No scleral icterus. No injection or drainage. Fundi not examined. ENT: Hearing grossly normal. Nose without bleeding or purulent drainage. Throat without visible erythema, exudates, masses, or lesions. NECK: Trachea midline. Supple, nontender. No palpable thyroid enlargement or nodularity. CARDIOVASCULAR: Regular rate and rhythm without murmurs, gallops, or rubs. No JVD. Peripheral pulses symmetric, bouncing; well perfused perifery RESPIRATORY/CHEST: Symmetric, unlabored respirations. Clear to auscultation. Breath sounds equal bilaterally. No wheezes, rales, or rhonchi. GASTROINTESTINAL: Abdomen soft, non-tender, nondistended. No hepato-splenomegaly , or palpable masses. No guarding. Bowel sounds present. GENITOURINARY: Without palpable bladder distension. Vivas catheter in place. MUSCULOSKELETAL: Extremities without clubbing, cyanosis, or edema. No joint tenderness or effusion noted. No calf tenderness. No mottling or clubbing. Surgical dressing in place RUE, intact, no visibl e bleeding LYMPHATICS: No palpable cervical or supraclavicular adenopathy. NEUROLOGICAL: Awake and alert. Motor and sensory grossly within normal limits. Follows commands. Clear speech. Moves all extremities. PSYCHIATRIC: No obvious anxiety/depression. no apparent hallucinations or other psychotic thought process. Laboratory Laboratory Tests Test 02/06/17 05:55 White Blood Count 7.5 Red Blood Count 3.39 Hemoglobin 10.2 Hematocrit 30.3 Mean Corpuscular Volume 89.4 Mean Corpuscular Hemoglobin 30.1 Mean Corpuscular Hemoglobin Concent 33.6 Red Cell Distribution Width 13.7 Platelet Count 204 Mean Platelet Volume 8.4 Neutrophils (%) (Auto) 76.1 Lymphocytes (%) (Auto) 10.8 Monocytes (%) (Auto) 10.0 Eosinophils (%) (Auto) 2.6 Basophils (%) (Auto) 0.5 Neutrophils # (Auto) 5.7 Lymphocytes # (Auto) 0.8 Monocytes # (Auto) 0.8 Eosinophils # (Auto) 0.2 Basophils # (Auto) 0.0 CBC Comment DIFF FINAL Differential Comment Blood Urea Nitrogen 6 Creatinine 0.58 Random Glucose 93 Calcium Level 8.3 Sodium Level 139 Potassium Level 3.4 Chloride Level 104 Carbon Dioxide Level 27.2 Anion Gap 8 Estimat Glomerular Filtration Rate 107 Date/Time Source Procedure Growth Status 02/05/17 14:55 Blood Peripheral Aerobic Blood Culture - Preliminary NO GROWTH IN 1 DAY Resulted 02/05/17 14:55 Blood Peripheral Anaerobic Blood Culture - Preliminary NO GROWTH IN 1 DAY Resulted 02/06/17 13:15 Abscess Arm Fungal Smear Pending Received 02/06/17 13:15 Abscess Arm Fungal Culture Pending Received Result Diagram: 02/06/1755 02/06/17 0555 Imaging Last Impressions Upper Extremity Ultrasound 02/05/175 Signed Impressions: Service Date/Time: January 15:00 - CONCLUSION: 1. No DVT is identified in the right upper extremity or internal jugular vein. 2. There is a complex fluid collection in the mid anterior arm measuring up to 15 cm. Renzo Baugh MD Humerus X-Ray 02/05/17 1435 Signed Impressions: Service Date/Time: January 15:52 - CONCLUSION: 1. Less than optimal examination given the orientation with lack of a true lateral and AP projection. 2. However, the butterfly fragment appears to have increased displacement as does the distal fragment. Additionally, the lag screws do not appear to be seated within the bone as much as on the intraoperative fluoroscopic images. Renzo Baugh MD Assessment and Plan Assessment and Plan sp R humerus traumatic fracture Sp ORIF Large abscess aw harware, purulent on surgery Pt is now hypotensive, but clinically stable cont broad spectrum abx fu clx will Rx 4-6 2/2 recent ORIF (as presumed osteo case) Gina Lopez MD Feb 06, 2017 17:51
[2017-02-06] MEDS: CALCIUM/VITAMIN D 250 MG/125 U TAB PO SCH (18:00)
[2017-02-06] MEDS ORDERED: PHENYLEPHRINE 40 MG in D5W 500 ML IV PRN (19:00)
[2017-02-06] MEDS ORDERED: TERBUTALINE INJ 1 MG/ML AMP SQ PRN (19:00)
[2017-02-06] MEDS ORDERED: SODIUM CHLOR 0.9% 1000 ML INJ 1,000 ML IV ONE ×2 (20:45)
--- NOTE | 2017-02-06 20:58 | PD.CONS ---
[facility] Service Critical Care Medicine Consult Requested By Primary Care Physician Leander Wells MD History of Present Illness 56-year-old female patient with history of right humeral fracture open reduction and internal fixation approximately 3 weeks ago, has been at a nursing care facility, and had her ida taken out 2 days ago, since then there has been increased redness, pain, swelling at the right site of surgery. She denies any fevers or any other issues. Denies any fever or chills at this time. No nausea or vomiting or diarrhea or constipation. Denies chest pain or shortness of breath. She underwent Irrigation and debridement of right arm and humerus, placement of antibiotic beads for suspected right shoulder hematoma versus abscess by Dr Bella. Review of Systems Constitutional: DENIES: Diaphoretic episodes, Fatigue, Fever, Weight gain, Weight loss, Chills, Dizziness, Change in appetite, Night Sweats Endocrine: DENIES: Abnorml menstrual pattern, Heat/cold intolerance, Polydipsia , Polyuria, Polyphagia Eyes: DENIES: Blurred vision, Diplopia, Eye inflammation, Eye pain, Vision loss , Photosensitivity, Double Vision Ears, nose, mouth, throat: DENIES: Tinnitus, Hearing loss, Vertigo, Nasal discharge, Oral lesions, Throat pain, Hoarseness, Ear Pain, Running Nose, Epistaxis, Sinus Pain, Toothache, Odynophagia Respiratory: DENIES: Apneas, Cough, Snoring, Wheezing, Hemoptysis, Sputum production, Shortness of breath Cardiovascular: DENIES: Chest pain, Palpitations, Syncope, Dyspnea on Exertion , PND, Lower Extremity Edema, Orthopnea, Claudication Gastrointestinal: DENIES: Abdominal pain, Black stools, Bloody stools, Constipation, Diarrhea, Nausea, Vomiting, Difficulty Swallowing, Anorexia Genitourinary: DENIES: Abnormal vaginal bleeding, Dysmenorrhea, Dyspareunia, Sexual dysfunction, Urinary frequency, Urinary incontinence, Urgency, Hematuria , Dysuria, Nocturia, Vaginal discharge Musculoskeletal: COMPLAINS OF: Joint pain, Muscle aches, Stiffness, Joint Swelling, DENIES: Back pain, Neck pain Integumentary: DENIES: Abnormal pigmentation, Pruritus, Rash, Nail changes, Breast masses, Breast skin changes, Nipple discharge Hematologic/lymphatic: DENIES: Bruising, Lymphadenopathy Immunologic/allergic: DENIES: Eczema, Urticaria Neurologic: DENIES: Abnormal gait, Headache, Localized weakness, Paresthesias, Seizures, Speech Problems, Tremor, Poor Balance Psychiatric: DENIES: Anxiety, Confusion, Mood changes, Depression, Hallucinations, Agitation, Suicidal Ideation, Homicidal Ideation, Delusions Past Family Social History Allergies: Coded Allergies: latex (Unverified Allergy, Severe, 02/05/17) topiramate (Unverified Allergy, Severe, 02/05/17) Past Medical History CVA/TIA, GERD, history of migraine, Guillain-Childress syndrome, adjustment disorder /depression/anxiety Past Surgical History Right partial hip replacement, recent right humeral surgery, back surgery, hand surgery Reported Medications Reported Meds & Active Scripts Active Calcium 600+D 200 (Calcium Carbonate-Vitamin D) 600-200 Mg-Unit Tab 1 Tab PO BID Ergocalciferol 50,000 Unit Cap 50,000 Units PO Q7D Chokio (Hydrocodone-Acetaminophen) 10-325 Mg Tab 1 Tab PO Q3HR PRN Requip (Ropinirole) 1 Mg Tab 1 Mg PO HS Reported Hydrocodone-Acetaminophen 10-325 mg Tab 1 Tab PO Q4H PRN Clonazepam 0.5 Mg Tab 0.5 Mg PO PRN Mapap (Acetaminophen) 325 Mg Tab 325 Mg PO Q4-6H PRN Lyrica (Pregabalin) 300 Mg Cap 300 Mg PO HS Allergy Relief (Loratadine) 10 Mg Tab 10 Mg PO DAILY Amitriptyline (Amitriptyline HCl) 25 Mg Tab 25 Mg PO HS Imitrex (Sumatriptan Succinate) 100 Mg Tab 100 Mg PO HS PRN If a satisfactory response has not been obtained at 2 hours, a second dose may be administered Active Ordered Medications Current Medications Medications (Trade) Dose Ordered Sig/Gen Route PRN Reason Start Time Stop Time Status Last Admin Dose Admin Sodium Chloride 1,000 ml @ 100 mls/hr Q10H IV 02/05/17 16:00 02/06/17 19:45 Sodium Chloride (NS Flush) 2 ml UNSCH PRN IV FLUSH FLUSH AFTER USING IV ACCESS 02/05/17 16:00 Sodium Chloride (NS Flush) 2 ml BID IV FLUSH 02/05/17 21:00 Acetaminophen (Tylenol) 650 mg Q4H PRN PO TEMP > 100.4 02/05/17 16:00 Naloxone HCl (Narcan Inj) 0.4 mg UNSCH PRN IV PUSH SEE LABEL COMMENTS 02/05/17 16:00 02/06/17 16:49 Senna/Docusate Sodium (Meseret-Colace) 1 tab BID PO 02/05/17 21:00 02/05/17 21:27 Magnesium Hydroxide (Milk Of Magnesia Liq) 30 ml Q12H PRN PO Mild constipation 02/05/17 16:00 Sennosides (Senokot) 17.2 mg Q12H PRN PO Moderate constipation 02/05/17 16:00 Bisacodyl (Dulcolax Supp) 10 mg DAILY PRN RECTAL SEVERE CONSITIPATION 02/05/17 16:00 Lactulose (Lactulose Liq) 30 ml DAILY PRN PO SEVERE CONSITIPATION 02/05/17 16:00 Piperacillin Sod/ Tazobactam Sod 100 ml @ 200 mls/hr Q6H IV 02/05/17 21:00 02/06/17 14:28 Morphine Sulfate (Morphine Inj) 2 mg Q4H PRN IV PUSH pain 3-10 02/05/17 19:15 Acetaminophen/ Hydrocodone Bitart (Chokio 10-325 Mg) 1 tab Q3H PRN PO pain 2<10 02/06/17 13:30 Ondansetron HCl (Zofran Inj) 4 mg Q4H PRN IVP NAUSEA OR VOMITING 02/06/17 13:30 Calcium/Vitamin D (Oscal-D 250-125) 250 mg TID PO 02/06/17 18:00 Diphenhydramine HCl (Benadryl) 25 mg Q6H PRN PO ITCHING 02/06/17 13:30 Morphine Sulfate (Morphine Inj) 4 mg Q3H PRN IV PUSH break thru pain 02/06/17 13:30 Ergocalciferol (Drisdol) 50,000 units Q7D PO 02/06/17 15:00 Cholecalciferol (Vitamin D3) 1,000 units DAILY PO 02/07/17 09:00 Miscellaneous Information ALL NURSING DEPARTME... UNSCH PRN .XX SEE LABEL COMMENTS 02/06/17 13:43 02/07/17 13:42 Phenylephrine HCl 40 mg/Dextrose 500 ml @ 37.5 mls/hr TITRATE PRN IV Blood Pressure Management 02/06/17 19:00 02/06/17 17:47 Terbutaline Sulfate (Brethine Inj) 1 mg UNSCH PRN SQ FOR EXTRAVASATION PROTOCOL 02/06/17 19:00 Family History Parents and siblings are healthy Social History Denies alcohol use, illicit drug use or tobacco use. Physical Exam Vital Signs Vital Signs Date Time Temp Pulse Resp B/P (MAP) Pulse Ox O2 Delivery O2 Flow Rate FiO2 02/06/17 20:00 92 15 104/54 (71) 95 Nasal Cannula 2 02/06/17 19:45 91 11 118/56 (76) 96 Nasal Cannula 2 02/06/17 19:30 98.8 87 14 154/68 (96) 99 Nasal Cannula 2 02/06/17 19:30 88 18 132/61 (84) 97 Nasal Cannula 3 02/06/17 19:30 87 154/68 02/06/17 19:20 104 108/52 02/06/17 19:15 102 18 108/54 (72) 97 Nasal Cannula 3 02/06/17 19:15 104 8 82/52 (62) 90 Nasal Cannula 3 02/06/17 19:00 98 13 81/50 (60) 97 Nasal Cannula 3 02/06/17 18:45 104 18 132/61 (84) 97 Nasal Cannula 3 02/06/17 18:30 88 18 141/78 (99) 97 Nasal Cannula 3 02/06/17 18:15 85 18 114/68 (83) 96 Nasal Cannula 3 02/06/17 18:10 94 84/52 02/06/17 18:00 94 18 84/52 (63) 96 Nasal Cannula 3 02/06/17 17:47 93 85/51 02/06/17 17:45 93 18 87/55 (66) 96 Nasal Cannula 3 02/06/17 17:30 93 17 86/57 (67) 96 Nasal Cannula 3 02/06/17 17:15 84 16 92/57 (69) 96 Nasal Cannula 3 02/06/17 17:00 89 17 87/52 (64) 96 Nasal Cannula 3 02/06/17 16:45 96 17 81/53 (62) 96 Nasal Cannula 3 02/06/17 16:30 95 17 86/51 (63) 94 Nasal Cannula 3 02/06/17 16:15 96 15 90/57 (68) 95 Nasal Cannula 3 02/06/17 16:00 105 15 86/51 (63) 95 Nasal Cannula 3 02/06/17 15:45 106 17 90/51 (64) 97 Nasal Cannula 3 02/06/17 15:30 106 17 82/51 (61) 98 Nasal Cannula 3 02/06/17 15:15 106 17 90/51 (64) 97 Nasal Cannula 3 02/06/17 15:00 106 17 89/54 (66) 96 Nasal Cannula 3 02/06/17 14:45 109 17 89/55 (66) 97 Nasal Cannula 3 02/06/17 14:30 108 17 88/52 (64) 97 Nasal Cannula 3 02/06/17 14:15 102 16 102/59 (73) 96 Nasal Cannula 3 02/06/17 14:00 102 16 101/60 (74) 97 Nasal Cannula 4 02/06/17 13:45 107 16 98/62 (74) 97 Nasal Cannula 4 02/06/17 13:40 98.6 87 16 104/61 (75) 95 Nasal Cannula 4 02/06/17 08:00 98.6 92 17 119/68 (85) 94 02/06/17 05:30 98.3 78 20 125/80 (95) 95 02/06/17 00:45 97.4 67 21 120/69 (86) 96 02/05/17 22:17 100.6 101 18 118/67 (84) 95 Physical Exam GENERAL: Well-nourished, well-developed patient. No acute distress SKIN: Warm and dry. HEAD: Normocephalic. EYES: No scleral icterus. No injection or drainage. NECK: Supple, trachea midline. No JVD or lymphadenopathy. CARDIOVASCULAR: Regular rate and rhythm without murmurs, gallops, or rubs. RESPIRATORY: Breath sounds equal bilaterally. No accessory muscle use. GASTROINTESTINAL: Abdomen soft, non-tender, nondistended. MUSCULOSKELETAL: No cyanosis, or edema. BACK: Nontender without obvious deformity. NEURO EXAM: Mental Status: The patient is alert and oriented to person, place, and time with normal speech. Cranial Nerves: Visual acuity intact bilaterally. Visual vines normal in all quadrants. Pupils are round, reactive to light. Extraocular movements are intact without ptosis. Hearing is normal bilaterally. Voice is normal. Tongue protrudes midline and moves symmetrically. Reflexes: Biceps, patellar, and Achilles are 2/4 bilaterally. No clonus. Laboratory Laboratory Tests Test 02/06/17 05:55 02/06/17 17:18 White Blood Count 7.5 Red Blood Count 3.39 Hemoglobin 10.2 8.1 Hematocrit 30.3 24.5 Mean Corpuscular Volume 89.4 Mean Corpuscular Hemoglobin 30.1 Mean Corpuscular Hemoglobin Concent 33.6 Red Cell Distribution Width 13.7 Platelet Count 204 Mean Platelet Volume 8.4 Neutrophils (%) (Auto) 76.1 Lymphocytes (%) (Auto) 10.8 Monocytes (%) (Auto) 10.0 Eosinophils (%) (Auto) 2.6 Basophils (%) (Auto) 0.5 Neutrophils # (Auto) 5.7 Lymphocytes # (Auto) 0.8 Monocytes # (Auto) 0.8 Eosinophils # (Auto) 0.2 Basophils # (Auto) 0.0 CBC Comment DIFF FINAL Differential Comment Blood Urea Nitrogen 6 Creatinine 0.58 Random Glucose 93 Calcium Level 8.3 Sodium Level 139 Potassium Level 3.4 Chloride Level 104 Carbon Dioxide Level 27.2 Anion Gap 8 Estimat Glomerular Filtration Rate 107 Date/Time Source Procedure Growth Status 02/05/17 14:55 Blood Peripheral Aerobic Blood Culture - Preliminary NO GROWTH IN 1 DAY Resulted 02/05/17 14:55 Blood Peripheral Anaerobic Blood Culture - Preliminary NO GROWTH IN 1 DAY Resulted 02/06/17 13:15 Abscess Arm Fungal Smear Pending Received 02/06/17 13:15 Abscess Arm Fungal Culture Pending Received Result Diagram: 02/06/17 1718 02/06/17 0555 Septic Shock Reassessment Septic shock perfusion: reassessment completed Assessment and Plan Assessment and Plan Hypertension - Aggressive IV fluids resuscitation - Early sepsis??? - Pancultures and broad-spectrum antibiotics - Agus-Synephrine when necessary to keep MAP above 65 Early sepsis - Septic joint arthritis - Broad-spectrum antibiotics - Follow-up cultures and de-escalate per sensitivity - Infectious disease consultation greatly appreciated DVT GI prophylaxis - Teds SCDs - Regular diet - Pharmacological DVT prophylaxis per orthopedic surgeon Critical Care: The total critical care time was 35 minutes. Time to perform other separately billable procedures was not included in the critical care time. Yosef Bravo MD Feb 06, 2017 20:58
[2017-02-06 22:00] VITALS: PULSE 97
[2017-02-06] MEDS: ACETAMINOPHEN/HYDROcodone 325 MG/10 MG TAB PO PRN (23:28)
[2017-02-07] VITALS (9 sets, daily range): BP systolic 98–118; BP diastolic 54–66; PULSE 68–89; RESP 10–23; TEMP 97.5–99.2; O2SAT 99–100
[2017-02-07] MEDS: PIPERACIL-TAZO 4.5 GM PREMIX 100 ML IV SCH ×2 (02:13→09:28)
[2017-02-07] MEDS: SODIUM CHLOR 0.9% 1000 ML INJ 1,000 ML IV SCH ×2 (04:51→14:37)
--- NOTE | 2017-02-07 08:40 | PD.ORT.PN ---
Subjective Subjective Remarks pt complains of right arm pain, denies any numbness or tingling Objective Vitals Vital Signs Date Time Temp Pulse Resp B/P (MAP) Pulse Ox O2 Delivery O2 Flow Rate FiO2 02/07/17 08:31 100 Nasal Cannula 2.00 02/07/17 06:00 68 02/07/17 04:00 69 02/07/17 04:00 99.0 69 23 101/59 (73) 100 02/07/17 04:00 69 101/59 02/07/17 02:00 71 02/07/17 00:37 20 02/07/17 00:30 72 86/54 02/07/17 00:00 99.1 71 21 98/56 (70) 100 02/07/17 00:00 71 02/06/17 22:00 97 109/59 02/06/17 22:00 97 02/06/17 21:45 99 12 115/55 (75) 94 Nasal Cannula 2 02/06/17 21:30 98 12 123/57 (79) 94 Nasal Cannula 2 02/06/17 21:15 94 12 133/58 (83) 95 Nasal Cannula 2 02/06/17 21:00 91 12 131/61 (84) 98 Nasal Cannula 2 02/06/17 20:45 87 10 134/63 (86) 97 Nasal Cannula 2 02/06/17 20:30 90 16 131/58 (82) 97 Nasal Cannula 2 02/06/17 20:15 88 10 139/58 (85) 96 Nasal Cannula 2 02/06/17 20:00 92 15 104/54 (71) 95 Nasal Cannula 2 02/06/17 19:45 91 11 118/56 (76) 96 Nasal Cannula 2 02/06/17 19:30 98.8 87 14 154/68 (96) 99 Nasal Cannula 2 02/06/17 19:30 88 18 132/61 (84) 97 Nasal Cannula 3 02/06/17 19:30 87 154/68 02/06/17 19:20 104 108/52 02/06/17 19:15 102 18 108/54 (72) 97 Nasal Cannula 3 02/06/17 19:15 104 8 82/52 (62) 90 Nasal Cannula 3 02/06/17 19:00 98 13 81/50 (60) 97 Nasal Cannula 3 02/06/17 18:45 104 18 132/61 (84) 97 Nasal Cannula 3 02/06/17 18:30 88 18 141/78 (99) 97 Nasal Cannula 3 02/06/17 18:15 85 18 114/68 (83) 96 Nasal Cannula 3 02/06/17 18:10 94 84/52 02/06/17 18:00 94 18 84/52 (63) 96 Nasal Cannula 3 02/06/17 17:47 93 85/51 02/06/17 17:45 93 18 87/55 (66) 96 Nasal Cannula 3 02/06/17 17:30 93 17 86/57 (67) 96 Nasal Cannula 3 02/06/17 17:15 84 16 92/57 (69) 96 Nasal Cannula 3 02/06/17 17:00 89 17 87/52 (64) 96 Nasal Cannula 3 02/06/17 16:45 96 17 81/53 (62) 96 Nasal Cannula 3 02/06/17 16:30 95 17 86/51 (63) 94 Nasal Cannula 3 02/06/17 16:15 96 15 90/57 (68) 95 Nasal Cannula 3 02/06/17 16:00 105 15 86/51 (63) 95 Nasal Cannula 3 02/06/17 15:45 106 17 90/51 (64) 97 Nasal Cannula 3 02/06/17 15:30 106 17 82/51 (61) 98 Nasal Cannula 3 02/06/17 15:15 106 17 90/51 (64) 97 Nasal Cannula 3 02/06/17 15:00 106 17 89/54 (66) 96 Nasal Cannula 3 02/06/17 14:45 109 17 89/55 (66) 97 Nasal Cannula 3 02/06/17 14:30 108 17 88/52 (64) 97 Nasal Cannula 3 02/06/17 14:15 102 16 102/59 (73) 96 Nasal Cannula 3 02/06/17 14:00 102 16 101/60 (74) 97 Nasal Cannula 4 02/06/17 13:45 107 16 98/62 (74) 97 Nasal Cannula 4 02/06/17 13:40 98.6 87 16 104/61 (75) 95 Nasal Cannula 4 I/O 02/06/17 02/06/17 02/06/17 02/07/17 02/07/17 02/07/17 07:00 15:00 23:00 07:00 15:00 23:00 Intake Total 1085 ml 1550 ml 3600 ml 2125 ml Output Total 1000 ml 50 ml 850 ml 1600 ml Balance 85 ml 1500 ml 2750 ml 525 ml Intake Oral 0 ml 750 ml 25 ml IV Total 1085 ml 350 ml 2850 ml 2100 ml Other 1200 ml Output Urine Total 1000 ml 850 ml 1600 ml Estimated Blood Loss 50 ml # Bowel Movements 0 0 Result Diagram: 02/06/17 1718 02/06/17 0555 Imaging Last 24 hours Impressions Upper Extremity Ultrasound 02/05/17 1435 Signed Impressions: Service Date/Time: January 15:00 - CONCLUSION: 1. No DVT is identified in the right upper extremity or internal jugular vein. 2. There is a complex fluid collection in the mid anterior arm measuring up to 15 cm. Renzo Baugh MD Humerus X-Ray 02/05/17 1435 Signed Impressions: Service Date/Time: January 15:52 - CONCLUSION: 1. Less than optimal examination given the orientation with lack of a true lateral and AP projection. 2. However, the butterfly fragment appears to have increased displacement as does the distal fragment. Additionally, the lag screws do not appear to be seated within the bone as much as on the intraoperative fluoroscopic images. Renzo Baugh MD Objective Remarks seen by Dr. Thomas Garrett Patient is awake and alert. R arm dressings intact She has mild discomfort with shoulder and elbow motion. Assessment & Plan Assessment and Plan Patient is status post ORIF right humerus 3 weeks ago; now pod #1 s/p irrigation and debridement with evacuation of hematoma. Check intraoperative cultures-- if cultures are positive she will need infectious disease consultation Nonweightbearing right arm OT for passive range of motion of right arm Discharge home Thursday or Thursday if cultures negative A mid-level provider in my office (nurse practitioner or physician assistant corporate controller) may see this patient on follow-up visits and continue to implement the objectives of this plan including: Starting or adjusting medications, injections , cast application, orthotics, brace application, physical therapy, radiological studies (including x-ray, MRI, CT, ultrasound, bone scan), vascular studies, neurologic studies, specialist consultation, and proceeding with surgical management, as appropriate. Dennise Hernandez Feb 07, 2017 08:40
[2017-02-07] MEDS: CALCIUM/VITAMIN D 250 MG/125 U TAB PO SCH ×3 (09:00→17:06)
[2017-02-07] MEDS: SODIUM CHLORIDE 0.9% FLUSH 10 ML FLUSH IV FLUSH SCH ×2 (09:00→21:00)
[2017-02-07] MEDS: DOCUSATE SODIUM 50 MG/SENNA 8.6 MG TAB PO SCH ×2 (09:27→21:06)
[2017-02-07] MEDS: CHOLECALCIFEROL (VIT D3) 1000 UNIT TAB PO SCH (09:27)
[2017-02-07] MEDS: ACETAMINOPHEN/HYDROcodone 325 MG/10 MG TAB PO PRN ×2 (09:28→17:25)
--- NOTE | 2017-02-07 11:08 | HHI.CCPN ---
Subjective Remarks/Hospital Course Hospital Course: 56-year-old female patient with history of right humeral fracture open reduction and internal fixation approximately 3 weeks ago, has been at a nursing care facility, and had her ida taken out 2 days ago, since then there has been increased redness, pain, swelling at the right site of surgery. She denies any fevers or any other issues. Denies any fever or chills at this time. No nausea or vomiting or diarrhea or constipation. Denies chest pain or shortness of breath. She underwent Irrigation and debridement of right arm and humerus, placement of antibiotic beads for suspected right shoulder hematoma versus abscess by Dr Bella. Subjective: 02/07: off vasopressors this morning. denies complaints. states her arm pain is adequately controlled. Objective Vital Signs Date Time Temp Pulse Resp B/P (MAP) Pulse Ox O2 Delivery O2 Flow Rate FiO2 02/07/17 08:31 100 Nasal Cannula 2.00 02/07/17 08:00 99.2 89 20 98/54 (69) Intake and Output 02/07/17 02/07/17 02/08/17 08:00 16:00 00:00 Intake Total 2125 ml Output Total 1600 ml Balance 525 ml Result Diagram: 02/06/17 1718 02/06/17 0555 Objective Remarks GENERAL: Well-nourished, well-developed patient. No acute distress SKIN: Warm and dry. HEAD: Normocephalic. EYES: No scleral icterus. No injection or drainage. NECK: trachea midline. No JVD CARDIOVASCULAR: Regular rate and rhythm RESPIRATORY: unlabored. equal chest rise. No accessory muscle use. GASTROINTESTINAL: Abdomen soft, non-tender, nondistended. MUSCULOSKELETAL: No cyanosis, or edema. right shoulder in carter wrap. dressing c/d /i. Neuro: RASS 0. GCS 15. neuro intact. no focal deficits. A/P Assessment and Plan Assessment: 56yF s/p humerus abscess washout and septic shock, now resolving. continue abx and maintenance ivf. can transfer to floor. follow up cultures. appreciate ID involvement. Septic shock- resolving. - Aggressive IV fluids resuscitation - Pancultures and broad-spectrum antibiotics - d/c neosynephrine. - Septic joint arthritis - Broad-spectrum antibiotics - Follow-up cultures and de-escalate per sensitivity - Infectious disease consultation greatly appreciated DVT GI prophylaxis - Teds SCDs - Regular diet - Pharmacological DVT prophylaxis per orthopedic surgeon Dispo: transfer to floor. consult hospitalist. Sidney Engel MD Feb 07, 2017 11:08
[2017-02-07 12:14] LABS: HEMATOCRIT 22.6 % (35.0-46.0); MEAN CELL VOLUME 89.4 FL (80.0-100.0); MEAN CORPUSCULAR HEMOGLOBIN 29.3 PG (27.0-34.0); MEAN CORPUSCULAR HGB CONC 32.7 % (32.0-36.0); PLATELET COUNT 199 TH/MM3 (150-450); RED BLOOD COUNT 2.52 MIL/MM3 (4.00-5.30); RED CELL DISTRIBUTION WIDTH 13.6 % (11.6-17.2); REVIEW FLAG FINAL; WHITE BLOOD COUNT 6.3 TH/MM3 (4.0-11.0)
[2017-02-07 12:42] LABS: BICARBONATE 28.7 MEQ/L (21.0-32.0); POTASSIUM 3.4 MEQ/L (3.5-5.1)
--- NOTE | 2017-02-07 13:35 | HHI.PR ---
Addendum to Inpatient Note Additional Information culture growing MRSa Plan: vancomycin stop Gina Hoff MD Feb 07, 2017 13:35
[2017-02-07] MEDS ORDERED: Vancomycin Consult Pharmacy 1 EA OTHER SCH (13:45)
[2017-02-07] MEDS: VANCOMYCIN INJ 1,250 MG in SODIUM CHLOR 0.9% 250 ML INJ 250 ML IV SCH (17:05)
[2017-02-07] MEDS: MORPHINE SULFATE 2 MG/ML INJ IV PUSH PRN (21:06)
[2017-02-08] VITALS (7 sets, daily range): BP systolic 104–132; BP diastolic 58–74; PULSE 84–92; RESP 17–18; TEMP 96.9–98; O2SAT 94–98
[2017-02-08] MEDS: MORPHINE SULFATE 2 MG/ML INJ IV PUSH PRN ×3 (01:43→21:07)
[2017-02-08] MEDS: SODIUM CHLOR 0.9% 1000 ML INJ 1,000 ML IV SCH ×2 (01:46→14:22)
[2017-02-08] MEDS: VANCOMYCIN INJ 1,250 MG in SODIUM CHLOR 0.9% 250 ML INJ 250 ML IV SCH ×2 (04:36→17:53)
[2017-02-08 05:55] LABS: HEMATOCRIT 21.8 % (35.0-46.0); MEAN CELL VOLUME 88.8 FL (80.0-100.0); MEAN CORPUSCULAR HEMOGLOBIN 29.9 PG (27.0-34.0); MEAN CORPUSCULAR HGB CONC 33.7 % (32.0-36.0); PLATELET COUNT 214 TH/MM3 (150-450); RED BLOOD COUNT 2.45 MIL/MM3 (4.00-5.30); RED CELL DISTRIBUTION WIDTH 13.5 % (11.6-17.2); REVIEW FLAG FINAL; WHITE BLOOD COUNT 6.4 TH/MM3 (4.0-11.0)
[2017-02-08 06:09] LABS: BICARBONATE 24.7 MEQ/L (21.0-32.0); POTASSIUM 3.2 MEQ/L (3.5-5.1)
[2017-02-08] MEDS: SODIUM CHLORIDE 0.9% FLUSH 10 ML FLUSH IV FLUSH SCH ×2 (09:00→21:08)
[2017-02-08] MEDS: ACETAMINOPHEN/HYDROcodone 325 MG/10 MG TAB PO PRN ×3 (09:59→17:54)
[2017-02-08] MEDS: DOCUSATE SODIUM 50 MG/SENNA 8.6 MG TAB PO SCH ×2 (09:59→21:07)
[2017-02-08] MEDS: CHOLECALCIFEROL (VIT D3) 1000 UNIT TAB PO SCH (09:59)
[2017-02-08] MEDS: CALCIUM/VITAMIN D 250 MG/125 U TAB PO SCH ×3 (09:59→17:53)
--- NOTE | 2017-02-08 10:21 | HHI.PR ---
Subjective Remarks Follow-up right arm cellulitis/abscess versus hematoma,s/p Irrigation and debridement of right arm and humerus, complicated by septic shock 02/08/17-patient seen and examined, no complaint, denies any significant right upper extremity pain Objective Vitals Vital Signs Date Time Temp Pulse Resp B/P (MAP) Pulse Ox O2 Delivery O2 Flow Rate FiO2 02/08/17 08:00 97.5 87 18 120/68 (85) 97 02/08/17 04:03 18 02/08/17 04:00 98.0 86 17 114/58 (76) 96 02/08/17 00:00 97.1 92 18 104/61 (75) 97 02/07/17 20:45 98 Nasal Cannula 2.00 02/07/17 20:00 97.5 88 17 118/62 (80) 99 02/07/17 16:00 98.5 85 10 101/58 (72) 100 02/07/17 12:00 98.3 81 12 98/66 (77) 100 I/O 02/07/17 02/07/17 02/07/17 02/08/17 02/08/17 02/08/17 07:00 15:00 23:00 07:00 15:00 23:00 Intake Total 2125 ml 1100 ml 400 ml 240 ml Output Total 1600 ml 3000 ml Balance 525 ml 1100 ml -2600 ml 240 ml Intake Oral 25 ml 150 ml 240 ml IV Total 2100 ml 1100 ml 250 ml Output Urine Total 1600 ml 3000 ml # Voids 2 # Bowel Movements 0 0 Result Diagram: 02/08/17 0540 02/08/17 0540 Objective Remarks GENERAL: NAD SKIN: Warm and dry.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 EYES: No scleral icterus. No injection or drainage. NECK: Supple, trachea midline. No JVD or lymphadenopathy. CARDIOVASCULAR: Regular rate and rhythm without murmurs, gallops, or rubs. RESPIRATORY: Breath sounds equal bilaterally. No accessory muscle use. GASTROINTESTINAL: Abdomen soft, non-tender, nondistended. MUSCULOSKELETAL: No cyanosis, or edema. RUE: TTP with induration associated with redness BACK: Nontender without obvious deformity. No CVA tenderness. Procedures s/p Irrigation and debridement of right arm and humerus A/P Problem List: (1) Hematoma ICD Code: T14.8XXA - Other injury of unspecified body region, initial encounter (2) Hematoma of arm ICD Code: S40.029A - Contusion of unspecified upper arm, initial encounter (3) Local infection of skin and subcutaneous tissue ICD Code: L08.9 - Local infection of skin and subcutaneous tissue Status: Acute (4) Postoperative anemia due to acute blood loss ICD Code: D62 - Acute posthemorrhagic anemia Assessment and Plan 56-year-old female with Cellulitis right upper extremity Abscess right upper extremity Patient is status post Open reduction internal fixation right humerus fracture 01/16/17 s/p Irrigation and debridement of right arm and humerus. Management per Orthopedic surgery Currently on Vancomycin; wound culture +MRSA. Infectious disease follow-up Pain management accordingly Postop anemia due to acute blood loss Will transfuse 1 unit packed red blood cell today 02/08/17 Hypokalemia Give potassium 60 mEq 1 Septic shock- resolved Neuropathy pain Continue Lyrica DT prophylaxis: Bilateral SCDs Lopez Delgado MD Feb 08, 2017 10:21
[2017-02-08] MEDS ORDERED: SODIUM CHLOR 0.9% 250 ML INJ 250 ML IV ONE (10:30)
[2017-02-08] MEDS ORDERED: POTASSIUM CHLORIDE 10 MEQ CONTROLLED RELEASE TAB PO ONE (10:45)
[2017-02-09 00:02] VITALS: BP 136/71; PULSE 88; RESP 18; TEMP 97.4; O2SAT 98
[2017-02-09 00:15] VITALS: BP 141/75; PULSE 83; RESP 20; TEMP 97.4; O2SAT 98
[2017-02-09 03:05] VITALS: BP 131/76; PULSE 89; RESP 20; TEMP 96.6; O2SAT 94
[2017-02-09] MEDS ORDERED: PHARMACY ORDERED LAB ONE (03:45)
[2017-02-09] MEDS: VANCOMYCIN INJ 1,250 MG in SODIUM CHLOR 0.9% 250 ML INJ 250 ML IV SCH (04:31)
[2017-02-09] MEDS: MORPHINE SULFATE 2 MG/ML INJ IV PUSH PRN ×3 (04:33→15:48)
[2017-02-09 06:53] LABS: AUTOMATED NEUTROPHIL # 3.8 TH/MM3 (1.8-7.7); BASOPHIL % 0.6 % (0.0-2.0); EOSINOPHIL # 0.3 TH/MM3 (0-0.4); EOSINOPHIL % 5.6 % (0.0-4.0); HEMATOCRIT 26.2 % (35.0-46.0); HEMO FLAGS DIFF FINAL; LYMPH % 24.6 % (9.0-44.0); LYMPHOCYTE # 1.5 TH/MM3 (1.0-4.8); MEAN CELL VOLUME 88.5 FL (80.0-100.0); MEAN CORPUSCULAR HEMOGLOBIN 30.9 PG (27.0-34.0); MONO % 8.1 % (0.0-8.0); NEUT % 61.1 % (16.0-70.0); PLATELET COUNT 227 TH/MM3 (150-450); RED BLOOD COUNT 2.96 MIL/MM3 (4.00-5.30); RED CELL DISTRIBUTION WIDTH 13.5 % (11.6-17.2); WHITE BLOOD COUNT 6.2 TH/MM3 (4.0-11.0)
[2017-02-09 07:04] LABS: BICARBONATE 27.3 MEQ/L (21.0-32.0); POTASSIUM 3.4 MEQ/L (3.5-5.1)
--- NOTE | 2017-02-09 07:55 | PD.ORT.PN ---
Subjective Subjective Remarks POD 3 s/p I&D and Abx bead placement of right humerus fx doing well. pain controlled. improving Objective Vitals Vital Signs Date Time Temp Pulse Resp B/P (MAP) Pulse Ox O2 Delivery O2 Flow Rate FiO2 02/09/17 05:02 18 02/09/17 03:05 96.6 89 20 131/76 94 02/09/17 00:15 97.4 83 20 141/75 98 02/09/17 00:02 97.4 88 18 136/71 98 02/08/17 20:50 94 21 02/08/17 20:00 98.0 84 18 130/74 (92) 97 02/08/17 19:50 Room Air 02/08/17 19:48 2.00 02/08/17 16:00 97.8 84 17 124/74 (91) 98 02/08/17 12:00 96.9 85 18 132/69 (90) 98 02/08/17 10:32 2.00 02/08/17 08:00 97.5 87 18 120/68 (85) 97 I/O 02/08/17 02/08/17 02/08/17 02/09/17 02/09/17 02/09/17 07:00 15:00 23:00 07:00 15:00 23:00 Intake Total 240 ml 480 ml 640 ml Output Total 3600 ml 1250 ml Balance 240 ml -3120 ml -610 ml Intake Oral 240 ml 480 ml 240 ml Packed Cells 400 ml Output Urine Total 3600 ml 1250 ml # Voids 2 Result Diagram: 02/09/1725 02/09/17 0625 Imaging Last 24 hours Impressions Upper Extremity Ultrasound 02/05/171434 Signed Impressions: Service Date/Time: January 15:00 - CONCLUSION: 1. No DVT is identified in the right upper extremity or internal jugular vein. 2. There is a complex fluid collection in the mid anterior arm measuring up to 15 cm. Renzo Baugh MD Humerus X-Ray 02/05/171434 Signed Impressions: Service Date/Time: January 15:52 - CONCLUSION: 1. Less than optimal examination given the orientation with lack of a true lateral and AP projection. 2. However, the butterfly fragment appears to have increased displacement as does the distal fragment. Additionally, the lag screws do not appear to be seated within the bone as much as on the intraoperative fluoroscopic images. Renzo Baugh MD Objective Remarks RUE: dressings clean and dry. mild area of serous drainge mid incision. minimal erythema. NVI Assessment & Plan Assessment and Plan 1) POD 3 s/p I&D with Abx bead placement right humerus fx 2) Right Humers fx s/p ORIF 3 weeks ago -cultures positive for MRSA -will need 6 weeks IV ABX. Infectious disease to arrange PICC line and Abx tailoring -NWB -daily dressing changes -ortho clear for DC when home IV Abx arranged -f/u with [facility] or [facility] in 2 weeks Taran Herrera/First Eliazar SANCHEZ Feb 09, 2017 07:55
--- NOTE | 2017-02-09 07:56 | HHI.FF ---
Face to Face Verification Diagnosis: (1) Comminuted right humeral fracture with delayed healing (2) Hematoma of arm (3) Local infection of skin and subcutaneous tissue Occupational Therapy Right UE Weight Bearing: Non WB Right UE Range of Motion: Pendular Nursing Dressing Changes: Daily dressing change, 4x4s, Paper tape, Xeroform Additional Instructions daily wound care of PICC line I have seen patient Andra Malone on 02/09/17. My clinical findings support the need for the requested home health care services because: Ltd mobility - disease progression I certify that my clinical findings support that this patient is homebound because: Post-op weakness Taran Herrera/First Eliazar SANCHEZ Feb 09, 2017 07:56
[2017-02-09] MEDS: SODIUM CHLORIDE 0.9% FLUSH 10 ML FLUSH IV FLUSH SCH ×2 (07:58→21:00)
[2017-02-09] MEDS: DOCUSATE SODIUM 50 MG/SENNA 8.6 MG TAB PO SCH ×2 (07:58→21:39)
[2017-02-09] MEDS: CALCIUM/VITAMIN D 250 MG/125 U TAB PO SCH ×3 (07:58→17:06)
[2017-02-09] MEDS: CHOLECALCIFEROL (VIT D3) 1000 UNIT TAB PO SCH (07:58)
[2017-02-09] MEDS: SODIUM CHLOR 0.9% 1000 ML INJ 1,000 ML IV SCH ×3 (07:59→21:46)
[2017-02-09 08:00] VITALS: BP 98/48; PULSE 87; RESP 18; TEMP 96.5; O2SAT 98
--- NOTE | 2017-02-09 11:36 | HHI.PR ---
Subjective Remarks Follow-up right arm cellulitis/abscess versus hematoma,s/p Irrigation and debridement of right arm and humerus, complicated by septic shock 02/08/17-patient seen and examined, no complaint, denies any significant right upper extremity pain 02/09/17-patient seen and examined, and to right upper extremity well controlled and patient is currently afebrile. No acute event overnight. She was transfused 1 unit packed red blood cell with improvement of H&H. Objective Vitals Vital Signs Date Time Temp Pulse Resp B/P (MAP) Pulse Ox O2 Delivery O2 Flow Rate FiO2 02/09/17 08:00 96.5 87 18 98/48 (65) 98 02/09/17 05:02 18 02/09/17 03:05 96.6 89 20 131/76 94 02/09/17 00:15 97.4 83 20 141/75 98 02/09/17 00:02 97.4 88 18 136/71 98 02/08/17 20:50 94 21 02/08/17 20:00 98.0 84 18 130/74 (92) 97 02/08/17 19:50 Room Air 02/08/17 19:48 2.00 02/08/17 16:00 97.8 84 17 124/74 (91) 98 02/08/17 12:00 96.9 85 18 132/69 (90) 98 I/O 02/08/17 02/08/17 02/08/17 02/09/17 02/09/17 02/09/17 07:00 15:00 23:00 07:00 15:00 23:00 Intake Total 240 ml 480 ml 640 ml Output Total 3600 ml 1250 ml Balance 240 ml -3120 ml -610 ml Intake Oral 240 ml 480 ml 240 ml Packed Cells 400 ml Output Urine Total 3600 ml 1250 ml # Voids 2 Result Diagram: 02/09/1762402/09/17624 Imaging Last Impressions Upper Extremity Ultrasound 02/05/171434 Signed Impressions: Service Date/Time: January 15:00 - CONCLUSION: 1. No DVT is identified in the right upper extremity or internal jugular vein. 2. There is a complex fluid collection in the mid anterior arm measuring up to 15 cm. Renzo Baugh MD Humerus X-Ray 02/05/171434 Signed Impressions: Service Date/Time: January 15:52 - CONCLUSION: 1. Less than optimal examination given the orientation with lack of a true lateral and AP projection. 2. However, the butterfly fragment appears to have increased displacement as does the distal fragment. Additionally, the lag screws do not appear to be seated within the bone as much as on the intraoperative fluoroscopic images. 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 EYES: No scleral icterus. No injection or drainage. NECK: Supple, trachea midline. No JVD or lymphadenopathy. CARDIOVASCULAR: Regular rate and rhythm without murmurs, gallops, or rubs. RESPIRATORY: Breath sounds equal bilaterally. No accessory muscle use. GASTROINTESTINAL: Abdomen soft, non-tender, nondistended. MUSCULOSKELETAL: No cyanosis, or edema. RUE: TTP with induration associated with redness BACK: Nontender without obvious deformity. No CVA tenderness. Procedures s/p Irrigation and debridement of right arm and humerus A/P Problem List: (1) Abscess of arm, right ICD Code: L02.413 - Cutaneous abscess of right upper limb (2) Local infection of skin and subcutaneous tissue ICD Code: L08.9 - Local infection of skin and subcutaneous tissue Status: Acute (3) Postoperative anemia due to acute blood loss ICD Code: D62 - Acute posthemorrhagic anemia Assessment and Plan 56-year-old female with Cellulitis right upper extremity Abscess right upper extremity Patient is status post Open reduction internal fixation right humerus fracture 01/16/17 s/p Irrigation and debridement of right arm and humerus. Management per Orthopedic surgery Currently on Vancomycin; wound culture +MRSA. Patient would likely need 6 weeks of IV antibiotics. Infectious disease follow-up Pain management accordingly Postop anemia due to acute blood loss s/p 1 unit packed red blood cell 02/08/17 H&H stable Hypokalemia s/p potassium 60 mEq 1 Septic shock- resolved Neuropathy pain Continue Lyrica DT prophylaxis: Bilateral SCDs Lopez Delgado MD Feb 09, 2017 11:36
--- NOTE | 2017-02-09 11:40 | HHI.DS ---
Discharge Summary Admission Date Feb 05, 2017 at 16:02 Discharge Date: Feb 09, 2017 Admitting Diagnosis right arm cellulitis/abscess (1) Abscess of arm, right ICD Code: L02.413 - Cutaneous abscess of right upper limb (2) Local infection of skin and subcutaneous tissue ICD Code: L08.9 - Local infection of skin and subcutaneous tissue Status: Acute (3) Postoperative anemia due to acute blood loss ICD Code: D62 - Acute posthemorrhagic anemia Procedures s/p Irrigation and debridement of right arm and humerus Brief History - From Admission 56-year-old female patient with history of right humeral OR after done by Dr. Caro last month, has been at a nursing care facility, and had her ida taken out 2 days ago, since then there has been increased redness, pain, swelling at the right site of surgery. She denies any fevers or any other issues. Denies any fever or chills at this time. No nausea or vomiting or diarrhea or constipation. Denies chest pain or shortness of breath. CBC/BMP: 02/09/17 0625 02/09/17 0625 Significant Findings Laboratory Tests Test 02/06/17 17:18 02/06/17 22:00 02/07/17 11:40 02/08/17 05:40 Hemoglobin 8.1 GM/DL (11.6-15.3) 7.4 GM/DL (11.6-15.3) 7.4 GM/DL (11.6-15.3) Hematocrit 24.5 % (35.0-46.0) 22.6 % (35.0-46.0) 21.8 % (35.0-46.0) Red Blood Count 2.52 MIL/MM3 (4.00-5.30) 2.45 MIL/MM3 (4.00-5.30) Blood Urea Nitrogen 2 MG/DL (7-18) 2 MG/DL (7-18) Creatinine 0.38 MG/DL (0.50-1.00) 0.32 MG/DL (0.50-1.00) Calcium Level 7.8 MG/DL (8.5-10.1) 8.0 MG/DL (8.5-10.1) Potassium Level 3.4 MEQ/L (3.5-5.1) 3.2 MEQ/L (3.5-5.1) Random Glucose 62 MG/DL (74-106) Test 02/09/17 04:00 02/09/17 06:25 Vancomycin Level Trough 10.9 MCG/ML (5.0-10.0) Red Blood Count 2.96 MIL/MM3 (4.00-5.30) Hemoglobin 9.2 GM/DL (11.6-15.3) Hematocrit 26.2 % (35.0-46.0) Monocytes (%) (Auto) 8.1 % (0.0-8.0) Eosinophils (%) (Auto) 5.6 % (0.0-4.0) Blood Urea Nitrogen 2 MG/DL (7-18) Creatinine 0.28 MG/DL (0.50-1.00) Potassium Level 3.4 MEQ/L (3.5-5.1) Imaging Last Impressions Upper Extremity Ultrasound 02/05/17 1435 Signed Impressions: Service Date/Time: January 15:00 - CONCLUSION: 1. No DVT is identified in the right upper extremity or internal jugular vein. 2. There is a complex fluid collection in the mid anterior arm measuring up to 15 cm. Renzo Baugh MD Humerus X-Ray 02/05/17 1435 Signed Impressions: Service Date/Time: January 15:52 - CONCLUSION: 1. Less than optimal examination given the orientation with lack of a true lateral and AP projection. 2. However, the butterfly fragment appears to have increased displacement as does the distal fragment. Additionally, the lag screws do not appear to be seated within the bone as much as on the intraoperative fluoroscopic images. Renzo Baugh MD PE at Discharge GENERAL: NAD SKIN: Warm and dry.redness over previous incision field mechanic/site lead: Normocephalic. EYES: No scleral icterus. No injection or drainage. NECK: Supple, trachea midline. No JVD or lymphadenopathy. CARDIOVASCULAR: Regular rate and rhythm without murmurs, gallops, or rubs. RESPIRATORY: Breath sounds equal bilaterally. No accessory muscle use. GASTROINTESTINAL: Abdomen soft, non-tender, nondistended. MUSCULOSKELETAL: No cyanosis, or edema. RUE: TTP with induration associated with redness BACK: Nontender without obvious deformity. No CVA tenderness. Hospital Course Patient with a recent history of open reduction internal fixation of right humerus fracture 01/16/17 was admitted secondary to right upper extremity cellulitis along with abscess and started on IV antibiotics, for which orthopedic surgery was consulted and she underwent Irrigation and debridement of right arm and humerus. Postop complicated by septic shock for which patient was transfer on the care of critical care medicine and extubated on postop day 1. Infectious disease specialist was consulted and antibiotics were monitored. All culture were monitored and patient has positive MRSA wound. Patient was subsequently transferred to the hospitalist. She was continued on her treatment for other chronic medical conditions .DVT and GI prophylaxis were provided. All electrode abnormalities were replaced accordingly. Patient's condition improved prior to discharge. Patient will need IV antibiotic on discharge Pt Condition on Discharge: Stable Discharge Disposition: Disch w/ Home Health Serv Discharge Time: > 30 minutes Discharge Instructions DIET: Follow Instructions for: Heart Healthy Diet Activities you can perform: Regular-No Restrictions Follow up Referrals: Orthopedics - 2 Weeks @ [facility] with Dion Caro MD New Orders: POTASSIUM, SERUM (K) - 2-3 Days New Medications: Epinephrine Inj (Epinephrine Inj) 1 Mg/Ml (1 Ml) Inj 0.3 MG IV PUSH ONCE PRN for ALLERGIC REACTION, #1 VIAL Epinephrine Inj (Epinephrine Inj) 1 Mg/Ml (1 Ml) Inj 0.3 MG SQ ONCE PRN for ALLERGIC REACTION, #1 VIAL Give with any signs of respiratory distress. Hydrocortisone Inj (Solu-Cortef Inj) 250 Mg/2 Ml Inj 250 MG IV PUSH ONCE PRN for ALLERGIC REACTION, #1 VIAL 0 Refills Give over 30-60 seconds. Potassium Chloride ER (Potassium Chloride ER) 20 Meq Tab 20 MEQ PO DAILY for Electrolyte Replacement, #3 TAB 0 Refills Rifampin (Rifampin) 300 Mg Cap 300 MG PO BID for Infection for 40 Days, #80 CAP 0 Refills Vancomycin Inj (Vancomycin Inj) 10 Gram Inj 1500 MG IV Q12HR for Infection for 40 Days, VIAL Hydrocodone/Acetaminophen (Hydrocodone-Acetamin 10-325 mg) 10 Mg-325 Mg Tablet 1 TAB PO Q3H PRN for pain 2<10, #10 TAB Continued Medications: Acetaminophen (Mapap) 325 Mg Tab 325 MG PO Q4-6H PRN for PAIN 1 TO 10 AND/OR AGITATION, TAB 0 Refills Amitriptyline (Amitriptyline) 25 Mg Tab 25 MG PO HS, TAB Calcium Carbonate-Vitamin D (Calcium 600+D 200) 600-200 Mg-Unit Tab 1 TAB PO BID for Nutritional Supplement, #90 TAB 0 Refills Ergocalciferol (Ergocalciferol) 50,000 Unit Cap 40207 UNITS PO Q7D for Nutritional Supplement, #8 CAP Loratadine (Allergy Relief) 10 Mg Tab 10 MG PO DAILY, TAB Pregabalin (Lyrica) 300 Mg Cap 300 MG PO HS, CAP 0 Refills Ropinirole (Requip) 1 Mg Tab 1 MG PO HS, #30 TAB Discontinued Medications: Clonazepam (Clonazepam) 0.5 Mg Tab 0.5 MG PO PRN for AGITATION AND/OR HALLUCINATION, TAB 0 Refills Hydrocodone-Acetaminophen (Hydrocodone-Acetaminophen) 10-325 mg Tab 1 TAB PO Q4H PRN for PAIN, TAB 0 Refills Hydrocodone-Acetaminophen ([place]) 10-325 Mg Tab 1 TAB PO Q3HR PRN for PAIN, #60 TAB 0 Refills Sumatriptan (Imitrex) 100 Mg Tab 100 MG PO HS PRN for HEADACHE, TAB 0 Refills If a satisfactory response has not been obtained at 2 hours, a second dose may be administered Lopez Delgado MD Feb 09, 2017 11:40
[2017-02-09 12:00] VITALS: BP 132/77; PULSE 79; RESP 17; TEMP 96.2; O2SAT 92
[2017-02-09] MEDS: VANCOMYCIN INJ 1,500 MG in SODIUM CHLORID 0.9% 500 ML INJ 500 ML IV SCH (15:56)
[2017-02-09 16:00] VITALS: BP 134/80; PULSE 94; RESP 17; TEMP 98; O2SAT 93
--- NOTE | 2017-02-09 16:12 | HHI.IDPN ---
Subjective Subjective Remarks doing well co some R shoulder pain resolved hypotension no fever blood clx are negative Antibiotics vabco rifampin Allergies: Coded Allergies: latex (Unverified Allergy, Severe, 02/05/17) topiramate (Unverified Allergy, Severe, 02/05/17) Objective . Vital Signs Date Time Temp Pulse Resp B/P (MAP) Pulse Ox O2 Delivery O2 Flow Rate FiO2 02/09/17 12:00 96.2 79 17 132/77 (95) 92 02/09/17 08:00 96.5 87 18 98/48 (65) 98 02/09/17 05:02 18 02/09/17 03:05 96.6 89 20 131/76 94 02/09/17 00:15 97.4 83 20 141/75 98 02/09/17 00:02 97.4 88 18 136/71 98 02/08/17 20:50 94 21 02/08/17 20:00 98.0 84 18 130/74 (92) 97 02/08/17 19:50 Room Air 02/08/17 19:48 2.00 . Laboratory Tests Test 02/08/17 05:40 02/09/17 06:25 White Blood Count 6.4 TH/MM3 6.2 TH/MM3 Red Blood Count 2.45 MIL/MM3 2.96 MIL/MM3 Hemoglobin 7.4 GM/DL 9.2 GM/DL Hematocrit 21.8 % 26.2 % Mean Corpuscular Volume 88.8 FL 88.5 FL Mean Corpuscular Hemoglobin 29.9 PG 30.9 PG Mean Corpuscular Hemoglobin Concent 33.7 % 35.0 % Red Cell Distribution Width 13.5 % 13.5 % Platelet Count 214 TH/MM3 227 TH/MM3 Mean Platelet Volume 7.6 FL 7.8 FL Neutrophils (%) (Auto) 61.1 % Lymphocytes (%) (Auto) 24.6 % Monocytes (%) (Auto) 8.1 % Eosinophils (%) (Auto) 5.6 % Basophils (%) (Auto) 0.6 % Neutrophils # (Auto) 3.8 TH/MM3 Lymphocytes # (Auto) 1.5 TH/MM3 Monocytes # (Auto) 0.5 TH/MM3 Eosinophils # (Auto) 0.3 TH/MM3 Basophils # (Auto) 0.0 TH/MM3 CBC Comment DIFF FINAL Differential Comment Laboratory Tests Test 02/08/17 05:40 02/09/17 06:25 Blood Urea Nitrogen 2 MG/DL 2 MG/DL Creatinine 0.32 MG/DL 0.28 MG/DL Random Glucose 62 MG/DL 88 MG/DL Calcium Level 8.0 MG/DL 8.5 MG/DL Sodium Level 143 MEQ/L 143 MEQ/L Potassium Level 3.2 MEQ/L 3.4 MEQ/L Chloride Level 107 MEQ/L 106 MEQ/L Carbon Dioxide Level 24.7 MEQ/L 27.3 MEQ/L Anion Gap 11 MEQ/L 10 MEQ/L Estimat Glomerular Filtration Rate 212 ML/MIN 247 ML/MIN Imaging Last Impressions Upper Extremity Ultrasound 02/05/171434 Signed Impressions: Service Date/Time: January 15:00 - CONCLUSION: 1. No DVT is identified in the right upper extremity or internal jugular vein. 2. There is a complex fluid collection in the mid anterior arm measuring up to 15 cm. Renzo Baugh MD Humerus X-Ray 02/05/171434 Signed Impressions: Service Date/Time: January 15:52 - CONCLUSION: 1. Less than optimal examination given the orientation with lack of a true lateral and AP projection. 2. However, the butterfly fragment appears to have increased displacement as does the distal fragment. Additionally, the lag screws do not appear to be seated within the bone as much as on the intraoperative fluoroscopic images. Renzo Baugh MD Physical Exam CONSTITUTIONAL/GENERAL: This is an adequately nourished patient, in no apparent distress. TUBES/LINES/DRAINS: SKIN: No jaundice, rashes, or lesions. . Skin temperature appropriate. Not diaphoretic. CARDIOVASCULAR: Regular rate and rhythm without murmurs, gallops, or rubs. RESPIRATORY/CHEST: Symmetric, unlabored respirations. Clear to auscultation. Breath sounds equal bilaterally. No wheezes, rales, or rhonchi. GASTROINTESTINAL: Abdomen soft, non-tender, nondistended. No hepato-splenomegaly , or palpable masses. No guarding. Bowel sounds present. MUSCULOSKELETAL: Extremities without clubbing, cyanosis, or edema. Sling, dressing in place RUE, intact, NEUROLOGICAL: Awake and alert. Motor and sensory grossly within normal limits. Follows commands. Clear speech. Moves all extremities. Assessment & Plan Remarks sp R humerus traumatic fracture Sp ORIF Large abscess aw harware, purulent on surgery Post -op hypotension - resolved cont avnco add rifampin (retained hardware) will Rx 6 2/2 recent ORIF (as presumed osteo case) ok to dc after abx arranged Gina Lopez MD Feb 09, 2017 16:12
[2017-02-09] MEDS ORDERED: EPIN1INJ21 SQ (16:14)
[2017-02-09] MEDS ORDERED: SOLU250I IV PUSH (16:14)
[2017-02-09] MEDS ORDERED: VANC10IN IV (16:14)
[2017-02-09] MEDS ORDERED: EPIN1INJ21 IV PUSH (16:14)
[2017-02-09] MEDS ORDERED: RIFA300C2 PO (16:15)
--- NOTE | 2017-02-09 16:19 | HHI.FF ---
Infusion Therapy Location of Infusion Therapy: Home Health Care IV Infusion Order Patient Information Patient Weight 84.6 kg Diagnosis: Coded Allergies: latex (Unverified Allergy, Severe, 02/05/17) topiramate (Unverified Allergy, Severe, 02/05/17) Administer Medication Vancomycin 1.5 grams IV q 12 hours Start Treatment: Feb 10, 2017 Stop Treatment: Mar 22, 2017 Additional Information Venous access: PICC Line Additional Instructions [x] Peripheral flush and dressing changes per protocol [x] Implanted port and central liner inserter: * Implanted port: 10 ml Normal Saline followed by 5 ml Heparin 100 units/ml Heparin flush after each use and monthly to maintain. [] May leave port accessed during therapy. [] May leave peripheral site accessed for duration of therapy. [x] If patient has SOB or respiratory distress, check oxygen saturation. If less than 90% or clinical signs of respiratory distress, administer oxygen at 2 L/min. via nasal cannula and notify physician. [x] Anaphylaxis/Reaction orders: * Stop infusion. * Keep IV line open with saline flush. * Notify physician. * Monitor vital signs every 15 minutes until symptoms resolve. * Check Oxygen saturation; Oxygen at 2 L/min. via nasal cannula if less than 90% or clinical signs of respiratory distress. * Administer diphenhydramine (Benadryl) 25 mg IV STAT, (unless patient has received as pre-med). May repeat once, if necessary. * Solu-Cortef 250 mg IVP over 30-60 seconds, use 100 mg vials for each dissolution. * Epinephrine (1mg/1 ml) 0.3 mg subcutaneously or IVP now with any signs of respiratory distress. * Check with physician for new additional pre-med orders if patient is re- challenged or re-treated. [x] May remove PICC line when treatment complete, after confirming with Physician. [x] If the patient is admitted to the hospital, the ED, or transferred via [facility] , complete transfer form including medication reconciliation order sheet. Laboratory Tests Weekly Labs: CBC w/diff, Creatinine (q mon, thur), CRP, LFT's (Hepatic function test), SED Rate, Vancomycin Trough Gina Lopez MD Feb 09, 2017 16:19
--- NOTE | 2017-02-09 17:03 | HHI.FF ---
Face to Face Verification Diagnosis: (1) Comminuted right humeral fracture with delayed healing (2) Abscess of arm, right Home Health Nursing Order: IV medication administration I have seen patient Andra Malone on 02/09/17. My clinical findings support the need for the requested home health care services because: Injectable med education/admin I certify that my clinical findings support that this patient is homebound because: Post-op weakness Lopez Delgado MD Feb 09, 2017 17:03
--- NOTE | 2017-02-09 19:22 | RADRPT ---
EXAM DATE/TIME: 02/09/2017 18:20 [facility] COMPARISON: No previous studies available for comparison. INDICATIONS : Post PICC line placement. MEDICAL HISTORY : None. SURGICAL HISTORY : ORIF right humerus. ENCOUNTER: Initial ACUITY: 1 day PAIN SCORE: 0/10 LOCATION: Bilateral chest FINDINGS: Left PICC line in superior vena cava. No consolidation or effusion. No pneumothorax. Plate and screw fixation right humerus. CONCLUSION: 1. Left PICC line superior vena cava. No consolidation or effusion. Ranjeet Caba MD on February 09, 2017 at 19:20 Board Certified Radiologist. This report was verified electronically.
[2017-02-09] MEDS: ACETAMINOPHEN/HYDROcodone 325 MG/10 MG TAB PO PRN (21:38)
[2017-02-09] MEDS: RIFAMPIN 150 MG CAP PO SCH (21:39)
[2017-02-10 00:13] VITALS: BP 146/77; PULSE 96; RESP 20; TEMP 97.4; O2SAT 99
[2017-02-10 04:00] VITALS: BP 123/67; PULSE 86; RESP 20; TEMP 97.4; O2SAT 93
[2017-02-10 04:14] LABS: HEMATOCRIT 26.2 % (35.0-46.0); MEAN CELL VOLUME 89.1 FL (80.0-100.0); MEAN CORPUSCULAR HEMOGLOBIN 31.1 PG (27.0-34.0); MEAN CORPUSCULAR HGB CONC 34.9 % (32.0-36.0); PLATELET COUNT 258 TH/MM3 (150-450); RED BLOOD COUNT 2.94 MIL/MM3 (4.00-5.30); RED CELL DISTRIBUTION WIDTH 13.9 % (11.6-17.2); REVIEW FLAG FINAL; WHITE BLOOD COUNT 6.2 TH/MM3 (4.0-11.0)
[2017-02-10 04:37] LABS: BICARBONATE 33.6 MEQ/L (21.0-32.0)
[2017-02-10 04:41] LABS: POTASSIUM 2.9 MEQ/L (3.5-5.1)
[2017-02-10] MEDS: VANCOMYCIN INJ 1,500 MG in SODIUM CHLORID 0.9% 500 ML INJ 500 ML IV SCH ×2 (04:49→15:21)
[2017-02-10] MEDS ORDERED: POTASSIUM CHLORIDE 25 MEQ EFFERVESCENT TAB PO ONE (05:00)
[2017-02-10] MEDS: POTASSIUM CHLOR 10 MEQ PREMIX 100 ML IV SCH ×2 (06:02→06:57)
[2017-02-10 08:00] VITALS: BP 125/74; PULSE 77; RESP 18; TEMP 97.6; O2SAT 99
[2017-02-10] MEDS: DOCUSATE SODIUM 50 MG/SENNA 8.6 MG TAB PO SCH (08:51)
[2017-02-10] MEDS: CHOLECALCIFEROL (VIT D3) 1000 UNIT TAB PO SCH (08:52)
[2017-02-10] MEDS: CALCIUM/VITAMIN D 250 MG/125 U TAB PO SCH ×2 (08:52→13:00)
[2017-02-10] MEDS: RIFAMPIN 150 MG CAP PO SCH (08:52)
[2017-02-10] MEDS: SODIUM CHLORIDE 0.9% FLUSH 10 ML FLUSH IV FLUSH SCH (09:00)
[2017-02-10] MEDS: MORPHINE SULFATE 2 MG/ML INJ IV PUSH PRN (09:07)
[2017-02-10] MEDS ORDERED: HYDR-3583 PO (10:10)
--- NOTE | 2017-02-10 10:16 | HHI.PR ---
Subjective Remarks Follow-up right arm cellulitis/abscess versus hematoma,s/p Irrigation and debridement of right arm and humerus, complicated by septic shock 02/08/17-patient seen and examined, no complaint, denies any significant right upper extremity pain 02/09/17-patient seen and examined, and to right upper extremity well controlled and patient is currently afebrile. No acute event overnight. She was transfused 1 unit packed red blood cell with improvement of H&H. 02/10/17-patient seen and examined, no acute event overnight. Afebrile and stable. PICC line was inserted yesterday. She is looking for discharge today. Objective Vitals Vital Signs Date Time Temp Pulse Resp B/P (MAP) Pulse Ox O2 Delivery O2 Flow Rate FiO2 02/10/17 08:00 97.6 77 18 125/74 (91) 99 02/10/17 04:00 97.4 86 20 123/67 (85) 93 02/10/17 00:13 97.4 96 20 146/77 (100) 99 02/09/17 19:00 Room Air 02/09/17 16:00 98.0 94 17 134/80 (98) 93 02/09/17 12:00 96.2 79 17 132/77 (95) 92 I/O 02/09/17 02/09/17 02/09/17 02/10/17 02/10/17 02/10/17 07:00 15:00 23:00 07:00 15:00 23:00 Intake Total 640 ml 2955 ml 895 ml Output Total 1250 ml 2675 ml Balance -610 ml 280 ml 895 ml Intake Oral 240 ml 1440 ml IV Total 1515 ml 895 ml Packed Cells 400 ml Output Urine Total 1250 ml 2675 ml # Bowel Movements 0 Result Diagram: 02/10/17 0345 02/10/17 0345 Objective Remarks GENERAL: NAD SKIN: Warm and dry.redness over previous incision therapy site coordinator: Normocephalic. EYES: No scleral icterus. No injection or drainage. NECK: Supple, trachea midline. No JVD or lymphadenopathy. CARDIOVASCULAR: Regular rate and rhythm without murmurs, gallops, or rubs. RESPIRATORY: Breath sounds equal bilaterally. No accessory muscle use. GASTROINTESTINAL: Abdomen soft, non-tender, nondistended. MUSCULOSKELETAL: No cyanosis, or edema. RUE: TTP with induration associated with redness BACK: Nontender without obvious deformity. No CVA tenderness. Procedures s/p Irrigation and debridement of right arm and humerus A/P Problem List: (1) Abscess of arm, right ICD Code: L02.413 - Cutaneous abscess of right upper limb (2) Local infection of skin and subcutaneous tissue ICD Code: L08.9 - Local infection of skin and subcutaneous tissue Status: Acute (3) Postoperative anemia due to acute blood loss ICD Code: D62 - Acute posthemorrhagic anemia Assessment and Plan 56-year-old female with Cellulitis right upper extremity Abscess right upper extremity Patient is status post Open reduction internal fixation right humerus fracture 01/16/17 s/p Irrigation and debridement of right arm and humerus. Management per Orthopedic surgery Currently on Vancomycin; wound culture +MRSA. Patient would likely need 6 weeks of IV antibiotics. Infectious disease follow-up PICC line inserted February 09 Pain management accordingly Postop anemia due to acute blood loss s/p 1 unit packed red blood cell 02/08/17 H&H stable Hypokalemia Replace electrolyte Septic shock- resolved Neuropathy pain Continue Lyrica DT prophylaxis: Bilateral SCDs Lopez Delgado MD Feb 10, 2017 10:16
[2017-02-10 12:00] VITALS: BP 142/80; PULSE 84; RESP 18; TEMP 98.3; O2SAT 94
[2017-02-10] MEDS: ACETAMINOPHEN/HYDROcodone 325 MG/10 MG TAB PO PRN (13:24)
[2017-02-10] MEDS ORDERED: POTA-163 PO (15:23)
[2017-02-10 16:00] VITALS: BP 153/77; PULSE 78; RESP 18; TEMP 97.5; O2SAT 97
[2017-02-11] MEDS ORDERED: PHARMACY ORDERED LAB ONE (03:45)
== END 2017-02-10 16:21 | disposition home health service (06) | DRG 856 ==
LOC: NEPC 14:20 → NEDA 16:02 → N07B 17:58 → N03B 02-06 18:14 → N03A 02-06 22:08 → N07A 02-07 18:34
PROVIDERS: ADMIT Hospitalist; ATTEND Hospitalist
PROC: 3E0V329 Introduction of Other Anti-infective into Bones, Percutaneous Approach (ICD-10-PCS; 2017-02-06)
PROC: 0PBF0ZZ Excision of Right Humeral Shaft, Open Approach (ICD-10-PCS; principal; 2017-02-06 12:17)
PROC: 02HV33Z Insertion of Infusion Device into Superior Vena Cava, Percutaneous Approach (ICD-10-PCS; 2017-02-09)
PROC: B548ZZA Ultrasonography of Superior Vena Cava, Guidance (ICD-10-PCS; 2017-02-09)
PROC: 30233N1 Transfusion of Nonautologous Red Blood Cells into Peripheral Vein, Percutaneous Approach (ICD-10-PCS; 2017-02-09)
DX: T81.4XXA Infection following a procedure, initial encounter (principal); A41.9 Sepsis, unspecified organism; R65.21 Severe sepsis with septic shock; M00.011 Staphylococcal arthritis, right shoulder; D62 Acute posthemorrhagic anemia; M86.9 Osteomyelitis, unspecified; L03.113 Cellulitis of right upper limb; B95.62 Methicillin resistant Staphylococcus aureus infection as the cause of diseases classified elsewhere; K21.9 Gastro-esophageal reflux disease without esophagitis; Z96.641 Presence of right artificial hip joint; G62.9 Polyneuropathy, unspecified; E87.6 Hypokalemia
CPT/HCPCS: 36430; 36569; 71010; 73060; 76937; 80048; 80053; 80202; 82948; 83605; 85014; 85018; 85025; 85027; 86403; 86850; 86900; 86901; 86920; 87015; 87040; 87070; 87102; 87116; 87147; 87176; 87186; 87205; 87206; 87641; 93971; 94150; 94640; 94667; 94668; 96365; 96375; J1170; J1580; J2250; J2270; J2310; J2370; J2405; J2543; J3010; J3370; J3480; J7030; J7040; J7050; J7060; J7120; P9016

== ENCOUNTER 2017-03-18 11:55 | Inpatient (IN) | payer MEDICARE, MEDICAID ==
[~2017-03-18] VITALS: Ht 162.6 cm; Wt 76.1 kg
[~2017-03-18 11:55] MED LIST changes: -CLON0.5T PO; +EPIN1INJ21 IV PUSH; +EPIN1INJ21 SQ; -HYDR-3366 PO; -IMIT100T PO; +POTA-163 PO; +RIFA300C2 PO; +SOLU250I IV PUSH; +VANC10IN IV
[2017-03-18 11:56] VITALS: BP 187/113; PULSE 93; RESP 16; TEMP 98.2; O2SAT 98
--- NOTE | 2017-03-18 12:59 | PD ---
HPI Chief Complaint: Skin Problem Time Seen by Provider: 12:54 Travel History International Travel<30 days: No Contact w/Intl Traveler<30days: No Traveled to known affect area: No History of Present Illness HPI 56-year-old female patient with previous history of chronic right arm cellulitis secondary to ORIF of the humerus, currently on vancomycin, presents to the ER today sent by her wound care nurse because of increased pain over the last weeks at the wound site an increased drainage in discoloration. She denies any fevers or any other issues. She still getting vancomycin IV via pump. Modifying Factors: None Associated Signs & Symptoms: N right arm right arm pain, discoloration, drainage at all wound site Risk Factors: Getting IV antibiotics for this already PFSH Past Medical History Anxiety: Yes Depression: Yes Cancer: No Cardiovascular Problems: No Cerebrovascular Accident: Yes (TIA/CVA) Diabetes: No Endocrine: No Fibromyalgia: Yes Gastrointestinal Disorders: Yes (GERD) GERD: Yes (GERD) Genitourinary: No Headaches: No Hepatitis: No Hiatal Hernia: No Immune Disorder: No Insomnia: Yes Musculoskeletal: Yes (right partial hip replacement) Neurologic: Yes (Guillian-barre syndrome) Psychiatric: Yes Reproductive: No Respiratory: No Migraines: Yes Seizures: Yes Thyroid Disease: No Past Surgical History Abdominal Surgery: No AICD: No Body Medical Devices: N/A Cardiac Surgery: No Ear Surgery: No Endocrine Surgery: No Eye Surgery: No Genitourinary Surgery: No Gynecologic Surgery: No Joint Replacement: Yes (rt partial hip replacement) Oral Surgery: No Pacemaker: No Thoracic Surgery: No Other Surgery: Yes (back surgery) Social History Alcohol Use: No Tobacco Use: No Substance Use: Yes Allergies-Medications (Allergen,Severity, Reaction): Coded Allergies: latex (Unverified Allergy, Severe, 03/18/17) topiramate (Unverified Allergy, Severe, 03/18/17) Reported Meds & Prescriptions Reported Meds & Active Scripts Active Potassium Chloride ER (Potassium Chloride) 20 Meq Tab 20 Meq PO DAILY Hydrocodone-Acetamin 10-325 mg (Hydrocodone/Acetaminophen) 10 Mg-325 Mg Tablet 1 Tab PO Q3H PRN Rifampin 300 Mg Cap 300 Mg PO BID 40 Days Epinephrine Inj 1 Mg/Ml (1 Ml) Inj 0.3 Mg SQ ONCE PRN Give with any signs of respiratory distress. Epinephrine Inj 1 Mg/Ml (1 Ml) Inj 0.3 Mg IV PUSH ONCE PRN Solu-Cortef Inj (Hydrocortisone Sodium Succinate) 250 Mg/2 Ml Inj 250 Mg IV PUSH ONCE PRN Give over 30-60 seconds. Vancomycin Inj (Vancomycin HCl) 10 Gram Inj 1,500 Mg IV Q12HR 40 Days Calcium 600+D 200 (Calcium Carbonate-Vitamin D) 600-200 Mg-Unit Tab 1 Tab PO BID Ergocalciferol 50,000 Unit Cap 50,000 Units PO Q7D Requip (Ropinirole) 1 Mg Tab 1 Mg PO HS Reported Mapap (Acetaminophen) 325 Mg Tab 325 Mg PO Q4-6H PRN Lyrica (Pregabalin) 300 Mg Cap 300 Mg PO HS Allergy Relief (Loratadine) 10 Mg Tab 10 Mg PO DAILY Amitriptyline (Amitriptyline HCl) 25 Mg Tab 25 Mg PO HS Review of Systems Except as stated in HPI: all other systems reviewed are Neg Physical Exam Narrative GENERAL: Well-developed middle-aged female patient currently mild distress. Awake oriented 3. SKIN: Focused skin assessment warm/dry. HEAD: Atraumatic. Normocephalic. EYES: Pupils equal and round. No scleral icterus. No injection or drainage. ENT: No nasal bleeding or discharge. Mucous membranes pink and moist. NECK: Trachea midline. No JVD. Supple. CARDIOVASCULAR: Regular rate and rhythm. No murmur appreciated. RESPIRATORY: No accessory muscle use. Clear to auscultation. Breath sounds equal bilaterally. GASTROINTESTINAL: Abdomen soft, non-tender, nondistended. Hepatic and splenic margins not palpable. MUSCULOSKELETAL: No obvious deformities. No clubbing. No cyanosis. No edema. Right arm: There is not notable tenderness to palpation of the right humeral area underlying the wound. There a small amount of greenish drainage from the wound that as along the scar from the ORIF. No palpable fluctuance. No palpable fluctuance NEUROLOGICAL: Awake and alert. No obvious cranial nerve deficits. Motor grossly within normal limits. Normal speech. PSYCHIATRIC: Appropriate mood and affect; insight and judgment normal. Data Data Last Documented VS Vital Signs Date Time Temp Pulse Resp B/P (MAP) Pulse Ox O2 Delivery O2 Flow Rate FiO2 03/18/17 16:37 88 19 136/61 (86) 98 Room Air 03/18/17 11:56 98.2 Orders Orders Complete Blood Count With Diff (03/18/17 12:23) Comprehensive Metabolic Panel (03/18/17 12:23) Act Partial Throm Time (Ptt) (03/18/17 12:23) Prothrombin Time / Inr (Pt) (03/18/17 12:23) Lactic Acid Sepsis Protocol (03/18/17 12:23) Humerus (Min 2vws) (03/18/17 12:55) C-Reactive Protein (Crp) (03/18/17 14:52) Westergren Sedimentation Rate (03/18/17 14:52) Vancomycin Trough (03/18/17 15:03) Labs Laboratory Tests Test 03/18/17 12:10 03/18/17 12:11 03/18/17 12:55 03/18/17 15:14 Prothrombin Time 10.6 SEC Prothromb Time International Ratio 1.0 RATIO Activated Partial Thromboplast Time 25.5 SEC Blood Urea Nitrogen 6 MG/DL Creatinine 0.76 MG/DL Random Glucose 92 MG/DL Total Protein 7.9 GM/DL Albumin 3.3 GM/DL Calcium Level 9.0 MG/DL Alkaline Phosphatase 142 U/L Aspartate Amino Transf (AST/SGOT) 20 U/L Alanine Aminotransferase (ALT/SGPT) 25 U/L Total Bilirubin 0.6 MG/DL Sodium Level 139 MEQ/L Potassium Level 3.4 MEQ/L Chloride Level 103 MEQ/L Carbon Dioxide Level 30.9 MEQ/L Anion Gap 5 MEQ/L Estimat Glomerular Filtration Rate 78 ML/MIN Lactic Acid Level 2.4 mmol/L Vancomycin Level Trough 49.4 MCG/ML White Blood Count 7.2 TH/MM3 Red Blood Count 3.93 MIL/MM3 Hemoglobin 11.4 GM/DL Hematocrit 34.7 % Mean Corpuscular Volume 88.3 FL Mean Corpuscular Hemoglobin 28.9 PG Mean Corpuscular Hemoglobin Concent 32.7 % Red Cell Distribution Width 14.0 % Platelet Count 177 TH/MM3 Mean Platelet Volume 8.5 FL Neutrophils (%) (Auto) 66.0 % Lymphocytes (%) (Auto) 20.7 % Monocytes (%) (Auto) 10.0 % Eosinophils (%) (Auto) 2.6 % Basophils (%) (Auto) 0.7 % Neutrophils # (Auto) 4.7 TH/MM3 Lymphocytes # (Auto) 1.5 TH/MM3 Monocytes # (Auto) 0.7 TH/MM3 Eosinophils # (Auto) 0.2 TH/MM3 Basophils # (Auto) 0.0 TH/MM3 CBC Comment DIFF FINAL Differential Comment Erythrocyte Sedimentation Rate 63 mm/hr C-Reactive Protein 4.76 MG/DL Test 03/18/17 15:15 Lactic Acid Level 0.9 mmol/L MDM Medical Decision Making Medical Screen Exam Complete: Yes Emergency Medical Condition: Yes Medical Record Reviewed: Yes Interpretation(s) Laboratory Tests Test 03/18/17 12:10 03/18/17 12:11 03/18/17 12:55 03/18/17 15:14 Blood Urea Nitrogen 6 MG/DL (7-18) Albumin 3.3 GM/DL (3.4-5.0) Alkaline Phosphatase 142 U/L (45-117) Potassium Level 3.4 MEQ/L (3.5-5.1) Estimat Glomerular Filtration Rate 78 ML/MIN (>89) Lactic Acid Level 2.4 mmol/L (0.4-2.0) Vancomycin Level Trough 49.4 MCG/ML (5.0-10.0) Red Blood Count 3.93 MIL/MM3 (4.00-5.30) Hemoglobin 11.4 GM/DL (11.6-15.3) Hematocrit 34.7 % (35.0-46.0) Monocytes (%) (Auto) 10.0 % (0.0-8.0) Erythrocyte Sedimentation Rate 63 mm/hr (0-30) C-Reactive Protein 4.76 MG/DL (0.00-0.30) Test 03/18/17 15:15 Differential Diagnosis Cellulitis versus sepsis versus abscess versus osteomyelitis Narrative Course After initial lab work came back, it with noted that the lactate was not elevated although there was not a significant elevation in white blood cell count. Case with discussed with PA for Dr. Rayo who talked to Dr. Rayo they would like to get the CRP, ESR, anti-Vanco trough. This was not done in the ER they were all elevated as well. Dr. Rayo's PA at this point state that he would like the patient to be medically admitted as an observation for further ID consult. We will keep her on vancomycin, no additional antibiotics suggested at this time. Case with discussed with Dr. Ovalles for admission. Diagnosis Primary Impression: Postoperative wound infection Admitting Information Admitting Physician Requests: Admit Soontharothai,Rewadee MD Mar 18, 2017 12:59
[2017-03-18 13:17] LABS: AUTOMATED NEUTROPHIL # 4.7 TH/MM3 (1.8-7.7); BASOPHIL % 0.7 % (0.0-2.0); EOSINOPHIL # 0.2 TH/MM3 (0-0.4); EOSINOPHIL % 2.6 % (0.0-4.0); HEMATOCRIT 34.7 % (35.0-46.0); HEMOGLOBIN 11.4 GM/DL (11.6-15.3); LYMPH % 20.7 % (9.0-44.0); LYMPHOCYTE # 1.5 TH/MM3 (1.0-4.8); MEAN CELL VOLUME 88.3 FL (80.0-100.0); MEAN CORPUSCULAR HEMOGLOBIN 28.9 PG (27.0-34.0); MEAN CORPUSCULAR HGB CONC 32.7 % (32.0-36.0); MEAN PLATELET VOLUME 8.5 FL (7.0-11.0); MONOCYTE # 0.7 TH/MM3 (0-0.9); PLATELET COUNT 177 TH/MM3 (150-450); RED BLOOD COUNT 3.93 MIL/MM3 (4.00-5.30); WHITE BLOOD COUNT 7.2 TH/MM3 (4.0-11.0)
[2017-03-18 13:28] LABS: PROTHROMBIN TIME - PATIENT 10.6 SEC (9.8-11.6)
[2017-03-18 13:36] LABS: ALBUMIN 3.3 GM/DL (3.4-5.0); AST (GOT) 20 U/L (15-37); BICARBONATE 30.9 MEQ/L (21.0-32.0); BLOOD UREA NITROGEN 6 MG/DL (7-18); CHLORIDE 103 MEQ/L (98-107); CREATININE 0.76 MG/DL (0.50-1.00); GLOMERULAR FILTRATION RATE 78 ML/MIN (>89); GLUCOSE,RANDOM 92 MG/DL (74-106); SODIUM (NA) 139 MEQ/L (136-145)
[2017-03-18 13:38] LABS: ALT (GPT) 25 U/L (10-53)
[2017-03-18 13:39] LABS: LACTIC ACID SEPSIS PROTOCOL 2.4 mmol/L (0.4-2.0)
[2017-03-18 13:41] LABS: ALKALINE PHOSPHATASE 142 U/L (45-117); TOTAL BILIRUBIN ADULT 0.6 MG/DL (0.2-1.0); TOTAL PROTEIN 7.9 GM/DL (6.4-8.2)
--- NOTE | 2017-03-18 14:09 | RADRPT ---
EXAM DATE/TIME: 03/18/2017 13:42 [facility] COMPARISON: HUMERUS RIGHT (MIN 2VWS), February 05, 2017, 15:52. INDICATIONS : No known injury since surgery. Pain, swelling and tenderness on lateral aspect near incision site for two days. Surgery in [facility] by Dr. Rayo. MEDICAL HISTORY : None. SURGICAL HISTORY : ORIF right humerus. ENCOUNTER: Initial ACUITY: 2 days PAIN SCORE: 7/10 LOCATION: Right Humerus. FINDINGS: Two view examination of the right humerus demonstrates abundant periosteal reaction forming both medi al, anterior and posterior along the fracture line. The lateral fixation plates in good position. I d on't see any evidence of complications. There has been some development of the breast or reaction par ticularly posteriorly since January. CONCLUSION: Significant bridging periosteal reaction across the comminuted humeral fracture. Chele Ferrari MD on March 18, 2017 at 14:05 Board Certified Radiologist. This report was verified electronically.
[2017-03-18 16:37] VITALS: BP 136/61; PULSE 88; RESP 19; O2SAT 98
--- NOTE | 2017-03-18 18:06 | HHI.HP ---
HPI Service [facility] Hospitalists Primary Care Physician Unknown Admission Diagnosis Postoperative right arm wound infection Diagnoses: (1) Postoperative wound infection Diagnosis: Principal Chief Complaint: Right arm infection Travel History International Travel<30 Days: No Contact w/Intl Traveler <30 Da: No Traveled to Known Affected Are: No History of Present Illness Written by Felix Andrews, acting as scribe for [Sandy] on 03/18/17 at 18: 06. 56-year-old female with past medical history significant for CVA/TIA, GERD, migraines, [place] Child[place], adjustment disorder, depression, anxiety, and right humeral ORIF. Patient originally underwent right ORIF of humerus secondary to fracture on 01/16/17 by . Patient was subsequently discharged to [facility] where she was doing well up until January when she began experiencing increased redness, pain, and swelling at surgical site. She was admitted to [facility] on 02/05/17 due to cellulitis with abscess and treated with IV antibiotics. At that time patient also underwent irrigation and debridement of right arm humerus by orthopedic surgery. Her hospitalization during that stay was complicated secondary to septic shock requiring mechanical ventilation. She was seen and treated by infectious disease due to positive MRSA. She was discharged home with home health with recommendations for IV vancomycin via PICC. Today patient presents once again to the emergency department with complaints of right upper arm warmth, redness, and tenderness following recommendations of wound care nurse. Patient reports that warmth and tenderness began 2 days ago. She denies any fevers, chills, nausea, vomiting, diarrhea, or headaches. She reports no changes to her medications or past medical history. Review of Systems Constitutional: DENIES: Fever, Chills Except as stated in HPI: all other systems reviewed are Neg Past Family Social History Past Medical History CVA/TIA GERD Migraines [place] Childress Adjustment disorder Depression Anxiety Past Surgical History Right partial hip replacement Right humeral ORIF Back surgery Hand surgery Reported Medications Reported Meds & Active Scripts Active Potassium Chloride ER (Potassium Chloride) 20 Meq Tab 20 Meq PO DAILY Hydrocodone-Acetamin 10-325 mg (Hydrocodone/Acetaminophen) 10 Mg-325 Mg Tablet 1 Tab PO Q3H PRN Rifampin 300 Mg Cap 300 Mg PO BID 40 Days Epinephrine Inj 1 Mg/Ml (1 Ml) Inj 0.3 Mg SQ ONCE PRN Give with any signs of respiratory distress. Epinephrine Inj 1 Mg/Ml (1 Ml) Inj 0.3 Mg IV PUSH ONCE PRN Solu-Cortef Inj (Hydrocortisone Sodium Succinate) 250 Mg/2 Ml Inj 250 Mg IV PUSH ONCE PRN Give over 30-60 seconds. Vancomycin Inj (Vancomycin HCl) 10 Gram Inj 1,500 Mg IV Q12HR 40 Days Calcium 600+D 200 (Calcium Carbonate-Vitamin D) 600-200 Mg-Unit Tab 1 Tab PO BID Ergocalciferol 50,000 Unit Cap 50,000 Units PO Q7D Requip (Ropinirole) 1 Mg Tab 1 Mg PO HS Reported Mapap (Acetaminophen) 325 Mg Tab 325 Mg PO Q4-6H PRN Lyrica (Pregabalin) 300 Mg Cap 300 Mg PO HS Allergy Relief (Loratadine) 10 Mg Tab 10 Mg PO DAILY Amitriptyline (Amitriptyline HCl) 25 Mg Tab 25 Mg PO HS Allergies: Coded Allergies: latex (Unverified Allergy, Severe, 03/18/17) topiramate (Unverified Allergy, Severe, 03/18/17) Family History No past family history Social History Tobacco use: Denies Alcohol use: Denies Illicit drug use: Denies Physical Exam Vital Signs Vital Signs Date Time Temp Pulse Resp B/P (MAP) Pulse Ox O2 Delivery O2 Flow Rate FiO2 03/18/17 16:37 88 19 136/61 (86) 98 Room Air 03/18/17 12:49 18 03/18/17 11:56 98.2 93 16 187/113 (137) 98 Physical Exam GENERAL: This is a well-nourished, well-developed patient, in no apparent distress. SKIN: No rashes. Cool and dry. Right upper arm with visible scar, mild surrounding redness, warmth, tenderness. Scar with noted opening, yellow discoloration. HEAD: Atraumatic. Normocephalic. No temporal or scalp tenderness. EYES: Pupils equal round and reactive. Extraocular motions intact. No scleral icterus. No injection or drainage. ENT: Nose without bleeding, purulent drainage or septal hematoma. Throat without erythema, or exudate. Uvula midline. Airway patent. NECK: Trachea midline. No JVD. Supple, nontender, no meningeal signs. CARDIOVASCULAR: Regular rate and rhythm without murmurs, gallops, or rubs. RESPIRATORY: Clear to auscultation. Breath sounds equal bilaterally. No wheezes , rales, or rhonchi. GASTROINTESTINAL: Abdomen soft, non-tender, nondistended. No guarding. MUSCULOSKELETAL: Extremities without clubbing, cyanosis, or edema. No joint tenderness, effusion, or edema noted. No calf tenderness. NEUROLOGICAL: Awake and alert. Cranial nerves II through XII intact. Motor and sensory grossly within normal limits. Five out of 5 muscle strength in all muscle groups. Normal speech. Laboratory Laboratory Tests Test 03/18/17 12:10 03/18/17 12:11 03/18/17 12:55 03/18/17 15:14 Prothrombin Time 10.6 Prothromb Time International Ratio 1.0 Activated Partial Thromboplast Time 25.5 Blood Urea Nitrogen 6 Creatinine 0.76 Random Glucose 92 Total Protein 7.9 Albumin 3.3 Calcium Level 9.0 Alkaline Phosphatase 142 Aspartate Amino Transf (AST/SGOT) 20 Alanine Aminotransferase (ALT/SGPT) 25 Total Bilirubin 0.6 Sodium Level 139 Potassium Level 3.4 Chloride Level 103 Carbon Dioxide Level 30.9 Anion Gap 5 Estimat Glomerular Filtration Rate 78 Lactic Acid Level 2.4 Vancomycin Level Trough 49.4 White Blood Count 7.2 Red Blood Count 3.93 Hemoglobin 11.4 Hematocrit 34.7 Mean Corpuscular Volume 88.3 Mean Corpuscular Hemoglobin 28.9 Mean Corpuscular Hemoglobin Concent 32.7 Red Cell Distribution Width 14.0 Platelet Count 177 Mean Platelet Volume 8.5 Neutrophils (%) (Auto) 66.0 Lymphocytes (%) (Auto) 20.7 Monocytes (%) (Auto) 10.0 Eosinophils (%) (Auto) 2.6 Basophils (%) (Auto) 0.7 Neutrophils # (Auto) 4.7 Lymphocytes # (Auto) 1.5 Monocytes # (Auto) 0.7 Eosinophils # (Auto) 0.2 Basophils # (Auto) 0.0 CBC Comment DIFF FINAL Differential Comment Erythrocyte Sedimentation Rate 63 C-Reactive Protein 4.76 Test 03/18/17 15:15 Lactic Acid Level 0.9 Result Diagram: 03/18/17 1255 03/18/17 1211 Imaging Last Impressions Humerus X-Ray 03/18/17 1255 Signed Impressions: Service Date/Time: Saturday, March 18, 2017 13:42 - CONCLUSION: Significant bridging periosteal reaction across the comminuted humeral fracture. MD Ovidio Arevalo VTE Risk Assessment Ovidio VTE Risk Assessment: No/Low Risk (score <= 1) Caprini Risk Assessment Model Point Value = 1 Point Value = 2 Point Value = 3 Point Value = 5 Age 41-60 Minor surgery BMI > 25 kg/m2 Swollen legs Varicose veins or History of unexplained or recurrent spontaneous Oral contraceptives or hormone replacement Sepsis (< 1 month) Serious lung disease, including pneumonia (< 1 month) Abnormal pulmonary function Acute myocardial infarction Congestive heart failure (< 1 month) History of inflammatory bowel disease Medical patient at bed rest Age 61-74 Arthroscopic surgery Major open surgery (> 45 min) Laparoscopic surgery (> 45 min) Malignancy Confined to bed (> 72 hours) Immobilizing plaster cast Central venous access Age >= 75 History of VTE Family history of VTE Factor V Leiden Prothrombin [id number] Lupus anticoagulant Anticardiolipin antibodies Elevated serum homocysteine Heparin-induced thrombocytopenia Other congenital or acquired thrombophilia Stroke (< 1 month) Elective arthroplasty Hip, pelvis, or leg fracture Acute spinal cord injury (< 1 month) Prophylaxis Regimen Total Risk Factor Score Risk Level Prophylaxis Regimen 0-1 Low Early ambulation 2 Moderate Order ONE of the following: *Sequential Compression Device (SCD) *Heparin 5000 units SQ BID 3-4 Higher Order ONE of the following medications: *Heparin 5000 units SQ TID *Enoxaparin/Lovenox 40 mg SQ daily (WT < 150 kg, CrCl > 30 mL/min) *Enoxaparin/Lovenox 30 mg SQ daily (WT < 150 kg, CrCl > 10-29 mL/min) *Enoxaparin/Lovenox 30 mg SQ BID (WT < 150 kg, CrCl > 30 mL/min) AND/OR *Sequential Compression Device (SCD) 5 or more Highest Order ONE of the following medications: *Heparin 5000 units SQ TID (Preferred with Epidurals) *Enoxaparin/Lovenox 40 mg SQ daily (WT < 150 kg, CrCl > 30 mL/min) *Enoxaparin/Lovenox 30 mg SQ daily (WT < 150 kg, CrCl > 10-29 mL/min) *Enoxaparin/Lovenox 30 mg SQ BID (WT < 150 kg, CrCl > 30 mL/min) AND *Sequential Compression Device (SCD) Assessment and Plan Problem List: (1) Postoperative wound infection ICD Code: T81.4XXA - Infection following a procedure, initial encounter Status: Acute Assessment and Plan 56-year-old female with past medical history significant for CVA/TIA, GERD, migraines, [place] Childress, adjustment disorder, depression, anxiety, and right humeral ORIF recently treated for MRSA wound infection. Right upper arm cellulitis - Patient with history of MRSA positive wound infection, on IV Vanco - CBC reviewed, no leukocytosis, patient also afebrile, ESR 63 - X-ray completed 03/18/17 reviewed, significant bridging periosteal reaction across the can comminuted humeral fracture. - Will admit to observation unit, consult ID appreciate recommendations. - For the moment will continue IV vancomycin. - Pain control with Tylenol Normocytic anemia - CBC reviewed, hemoglobin 11.4, hematocrit 34.7 - Much improved since her discharge in January - Continue monitoring Anxiety/depression/adjustment disorder - Resume patient's home amitriptyline, and ropinirole. DVT prophylaxis -SCDs, early ambulation This note was transcribed by tae Andrews. I, Dr. Lopez Delgado personally performed the history, physical exam, and medical decision making; and confirmed the accuracy of the information in the transcribed note. Authenticated by Dr. Lopez Delgado on 03/18/17 at 18:06. Code Status Full code Discussed Condition With patient, ED physician Felix Andrews Mar 18, 2017 18:06 Lopez Delgado MD Mar 18, 2017 18:08
[2017-03-18] MEDS ORDERED: ONDANSETRON HCL 4 MG/2 ML VIAL IVP PRN (19:00)
[2017-03-18] MEDS ORDERED: RESP: ALBUTEROL 2.5 MG/IPRATROPIUM 0.5 MG NEB (PRN) NEB (19:00)
[2017-03-18] MEDS ORDERED: NALOXONE HCL 0.4 MG/ML AMP IV PUSH PRN (19:00)
[2017-03-18] MEDS ORDERED: SODIUM CHLORIDE 0.9% FLUSH 10 ML FLUSH IV FLUSH PRN (19:00)
[2017-03-18] MEDS ORDERED: Vancomycin Consult Pharmacy 1 EA OTHER SCH (19:00)
[2017-03-18] MEDS ORDERED: ACETAMINOPHEN 325 MG TAB PO PRN ×2 (19:00)
[2017-03-18] MEDS ORDERED: MAGNESIUM HYDROXIDE SUSP 30 ML CUP PO PRN (19:00)
[2017-03-18 19:06] VITALS: BP 132/65; PULSE 86; RESP 16; O2SAT 96
[2017-03-18] MEDS: SODIUM CHLORIDE 0.9% FLUSH 10 ML FLUSH IV FLUSH SCH (21:48)
[2017-03-18] MEDS: PREGABALIN 100 MG CAP PO SCH (21:49)
[2017-03-18] MEDS: AMITRIPTYLINE HCL 25 MG TAB PO SCH (21:50)
[2017-03-18] MEDS: RIFAMPIN 150 MG CAP PO SCH (21:51)
[2017-03-18 23:34] VITALS: BP 104/61; PULSE 94; RESP 18; TEMP 98.1; O2SAT 93
[2017-03-19] MEDS: VANCOMYCIN INJ 1,500 MG in SODIUM CHLORID 0.9% 500 ML INJ 500 ML IV SCH ×2 (00:31→18:42)
[2017-03-19 02:50] VITALS: BP 107/60; PULSE 88; RESP 18; TEMP 98.2; O2SAT 94
[2017-03-19 06:04] LABS: AUTOMATED NEUTROPHIL # 2.8 TH/MM3 (1.8-7.7); BASOPHIL # 0.1 TH/MM3 (0-0.2); EOSINOPHIL # 0.2 TH/MM3 (0-0.4); EOSINOPHIL % 3.7 % (0.0-4.0); HEMATOCRIT 28.9 % (35.0-46.0); HEMOGLOBIN 9.8 GM/DL (11.6-15.3); LYMPH % 28.4 % (9.0-44.0); LYMPHOCYTE # 1.5 TH/MM3 (1.0-4.8); MEAN CELL VOLUME 87.3 FL (80.0-100.0); MEAN CORPUSCULAR HEMOGLOBIN 29.7 PG (27.0-34.0); MEAN PLATELET VOLUME 9.3 FL (7.0-11.0); MONO % 11.8 % (0.0-8.0); MONOCYTE # 0.6 TH/MM3 (0-0.9); NEUT % 55.1 % (16.0-70.0); PLATELET COUNT 155 TH/MM3 (150-450); RED BLOOD COUNT 3.31 MIL/MM3 (4.00-5.30); RED CELL DISTRIBUTION WIDTH 14.3 % (11.6-17.2); WHITE BLOOD COUNT 5.2 TH/MM3 (4.0-11.0)
[2017-03-19 06:34] LABS: ALBUMIN 2.7 GM/DL (3.4-5.0); ALT (GPT) 21 U/L (10-53); AST (GOT) 12 U/L (15-37); BICARBONATE 30.2 MEQ/L (21.0-32.0); BLOOD UREA NITROGEN 5 MG/DL (7-18); CALCIUM 8.4 MG/DL (8.5-10.1); CHLORIDE 105 MEQ/L (98-107); CREATININE 0.61 MG/DL (0.50-1.00); GLOMERULAR FILTRATION RATE 101 ML/MIN (>89); GLUCOSE,RANDOM 87 MG/DL (74-106); SODIUM (NA) 141 MEQ/L (136-145)
[2017-03-19 06:36] LABS: ALKALINE PHOSPHATASE 121 U/L (45-117); TOTAL BILIRUBIN ADULT 0.5 MG/DL (0.2-1.0); TOTAL PROTEIN 6.6 GM/DL (6.4-8.2)
[2017-03-19 07:11] VITALS: BP 115/65; PULSE 88; RESP 18; TEMP 97.5; O2SAT 96
[2017-03-19] MEDS ORDERED: POTASSIUM CHLORIDE 20 MEQ CONTROLLED RELEASE TAB PO ONE (07:15)
[2017-03-19] MEDS: POTASSIUM CHLOR 20 MEQ PREMIX 100 ML IV SCH ×2 (09:34→12:01)
[2017-03-19] MEDS: RIFAMPIN 150 MG CAP PO SCH ×2 (09:35→22:48)
[2017-03-19] MEDS: LORATADINE 10 MG TAB PO SCH (09:35)
[2017-03-19] MEDS: SODIUM CHLORIDE 0.9% FLUSH 10 ML FLUSH IV FLUSH SCH ×2 (09:36→22:47)
--- NOTE | 2017-03-19 10:13 | PD.ORT.PN ---
Subjective Subjective Remarks Original surgery for ORIF of right humerus on 01/16/2017 and irrigation debridement of right humerus with placement of antibiotic beads on 02/06/2017. Due to infection and instability fracture she has been on IV antibiotics and has retained hardware. Ride yesterday to the ER due to swelling, erythema and drainage of wound over the incision line of the right humerus. She has been on IV vancomycin. Vancomycin trough was significantly high Objective Vitals Vital Signs Date Time Temp Pulse Resp B/P (MAP) Pulse Ox O2 Delivery O2 Flow Rate FiO2 03/19/17 07:11 97.5 88 18 115/65 (82) 96 03/19/17 02:50 98.2 88 18 107/60 (76) 94 03/18/17 23:34 98.1 94 18 104/61 (75) 93 03/18/17 20:05 03/18/17 19:06 86 16 132/65 (87) 96 Room Air 03/18/17 16:37 88 19 136/61 (86) 98 Room Air 03/18/17 12:49 18 03/18/17 11:56 98.2 93 16 187/113 (137) 98 Result Diagram: 03/19/17 0458 03/19/17 0458 Other Results Laboratory Tests Test 03/18/17 12:10 Prothromb Time International Ratio 1.0 RATIO Prothrombin Time 10.6 SEC (9.8-11.6) Imaging Last 24 hours Impressions Humerus X-Ray 03/18/17 1255 Signed Impressions: Service Date/Time: Saturday, March 18, 2017 13:42 - CONCLUSION: Significant bridging periosteal reaction across the comminuted humeral fracture. Chele Ferrari MD Objective Remarks Right upper extremity: No pain to palpation of her proximal humerus. Humeral shaft incision has healed over the majority of it except for approximately 1 cm wound. This wound has decreased in size and is 25% of the wound and originally was. There is serous drainage noted, antibiotic bead is visualized. Distally she has intact sensation with full extension and flexion of all fingers Assessment & Plan Assessment and Plan ORIF right humeral shaft fracture on 01/16/2017 Infection with IV antibiotics and antibiotic beads Nonweightbearing right upper extremity Daily dressing changes with bacitracin and Adaptic 4 x 4's and light Kareem wrap No surgical intervention necessary at this time Once continue bone callus and healing of the fracture has become complete then hardware will be removed and final treatment of osteomyelitis and infection will be treated. Once medically stable she may be discharged home She should keep her previously made appointment with Jaylen Weathers Jr. Mar 19, 2017 10:13
--- NOTE | 2017-03-19 10:47 | HHI.PR ---
Subjective Remarks In the bed, doesn't appear in distress. No fever or chills overnight. No Denies cp, sob n/v/d/c. Objective Vitals Vital Signs Date Time Temp Pulse Resp B/P (MAP) Pulse Ox O2 Delivery O2 Flow Rate FiO2 03/19/17 07:11 97.5 88 18 115/65 (82) 96 03/19/17 02:50 98.2 88 18 107/60 (76) 94 03/18/17 23:34 98.1 94 18 104/61 (75) 93 03/18/17 20:05 03/18/17 19:06 86 16 132/65 (87) 96 Room Air 03/18/17 16:37 88 19 136/61 (86) 98 Room Air 03/18/17 12:49 18 03/18/17 11:56 98.2 93 16 187/113 (137) 98 Result Diagram: 03/19/17 0458 03/19/17 0458 Imaging Last Impressions Humerus X-Ray 03/18/17 1255 Signed Impressions: Service Date/Time: Saturday, March 18, 2017 13:42 - CONCLUSION: Significant bridging periosteal reaction across the comminuted humeral fracture. Chele Ferrari MD Objective Remarks GENERAL: This is a well-nourished, well-developed patient, in no apparent distress. SKIN: No rashes. Cool and dry. Right upper arm with visible scar, mild surrounding redness, warmth, tenderness. Scar with noted opening, yellow discoloration. CARDIOVASCULAR: Regular rate and rhythm without murmurs, gallops, or rubs. RESPIRATORY: Clear to auscultation. Breath sounds equal bilaterally. No wheezes , rales, or rhonchi. GASTROINTESTINAL: Abdomen soft, non-tender, nondistended. No guarding. MUSCULOSKELETAL: Extremities without clubbing, cyanosis, or edema. No joint tenderness, effusion, or edema noted. No calf tenderness. NEUROLOGICAL: Awake and alert. Cranial nerves II through XII intact. Motor and sensory grossly within normal limits. Five out of 5 muscle strength in all muscle groups. Normal speech. A/P Problem List: (1) Postoperative wound infection ICD Code: T81.4XXA - Infection following a procedure, initial encounter Status: Acute Assessment and Plan 56-year-old female with past medical history significant for CVA/TIA, GERD, migraines, [place] Childress, adjustment disorder, depression, anxiety, and right humeral ORIF recently treated for MRSA wound infection. Right upper arm cellulitis - Patient with history of MRSA positive wound infection, on IV Vanco - CBC reviewed, no leukocytosis, patient also afebrile, ESR 63 - X-ray completed 03/18/17 reviewed, significant bridging periosteal reaction across the can comminuted humeral fracture. - Will admit to observation unit, consult ID appreciate recommendations. - For the moment will continue IV vancomycin. - Pain control with Tylenol Normocytic anemia - CBC reviewed, hemoglobin 11.4, hematocrit 34.7 - Much improved since her discharge in January - Continue monitoring Anxiety/depression/adjustment disorder - Resume patient's home amitriptyline, and ropinirole. Hypokalemia: Replaced. DVT prophylaxis -SCDs, early ambulation Porsha Crump MD Mar 19, 2017 10:47
[2017-03-19] MEDS ORDERED: PHARMACY ORDERED LAB ONE (11:45)
[2017-03-19 12:00] VITALS: BP 121/86; PULSE 92; RESP 16; TEMP 97.6; O2SAT 98
[2017-03-19] MEDS: BACITRACIN TOP OINT 15 GM TUBE TOPICAL SCH (12:02)
[2017-03-19 16:00] VITALS: BP 107/63; PULSE 90; RESP 16; TEMP 97.7; O2SAT 94
[2017-03-19] MEDS ORDERED: VANCOMYCIN INJ 1,500 MG in SODIUM CHLORID 0.9% 500 ML INJ 500 ML IV SCH (18:00)
--- NOTE | 2017-03-19 18:07 | PD.ID.CON ---
History of Present Illness Service ID Consult Requested By Dr Caro Reason for Consult infected RUE hardware, MRSA Primary Care Physician Unknown Diagnoses: History of Present Illness well known to me from her previous admission in January She is sp ORIF of R humerus fracture sp ORIF on Jan 16 and readmitted for wound infection, MRSA on Feb 06 S/P I& D by Dr Wilburn with retention of hardware She was discahrded on 6 weeks of IV vancomycin + oral Rifampin and apparentlynwas doing OK untill Thursday when she developped redness, swelling pain SHe also has drainage from a wound on distal incision opening No fever or leukocytosis, but lactic acid borderline elevated (2.4) Admitted. Xray showed no erosions, healing fracture (dw Dr Bolton) Review of Systems Except as stated in HPI: all other systems reviewed are Neg Past Family Social History Allergies: Coded Allergies: latex (Unverified Allergy, Severe, 03/18/17) topiramate (Unverified Allergy, Severe, 03/18/17) Past Medical History CVA/TIA, GERD, history of migraine, Guillain-Childress syndrome, adjustment disorder/depression/anxiety, Past Surgical History Right partial hip replacement, recent right humeral surgery, back surgery, hand surgery Active Ordered Medications Medications where reviewed in EMR Antibiotics Include: vancomycin rifampin Family History Parents and siblings are healthy Social History Denies alcohol use, illicit drug use or tobacco use. Physical Exam Vital Signs Vital Signs Date Time Temp Pulse Resp B/P (MAP) Pulse Ox O2 Delivery O2 Flow Rate FiO2 03/19/17 16:00 97.7 90 16 107/63 (78) 94 03/19/17 12:00 97.6 92 16 121/86 (98) 98 03/19/17 07:11 97.5 88 18 115/65 (82) 96 03/19/17 02:50 98.2 88 18 107/60 (76) 94 03/18/17 23:34 98.1 94 18 104/61 (75) 93 03/18/17 20:05 03/18/17 19:06 86 16 132/65 (87) 96 Room Air Physical Exam CONSTITUTIONAL/GENERAL: This is an adequately nourished patient, in no apparent distress. TUBES/LINES/DRAINS: SKIN: No jaundice, rashes, or lesions. Skin temperature appropriate. Not diaphoretic. HEAD: Atraumatic. Normocephalic. EYES: Pupils equal and round and reactive. Extraocular motions intact. No scleral icterus. No injection or drainage. Fundi not examined. ENT: Hearing grossly normal. Nose without bleeding or purulent drainage. Oral mucosae without visible erythema, exudates, masses, or lesions. NECK: Trachea midline. CARDIOVASCULAR: Regular rate and rhythm without murmurs, gallops, or rubs. No JVD. Peripheral pulses symmetric. RESPIRATORY/CHEST: Symmetric, unlabored respirations. Clear to auscultation. Breath sounds equal bilaterally. No wheezes, rales, or rhonchi. GASTROINTESTINAL: Abdomen soft, non-tender, nondistended. No hepato-splenomegaly , or palpable masses. No guarding. Bowel sounds present. MUSCULOSKELETAL: Extremities without clubbing, cyanosis, or edema BLE/LUE. No mottling or clubbing. RUE - incision is healed except in distal aspect where there is small opneing draining odorless clear pus + some minimal erythema, iinduration, tenderness no areas of fluctuance LYMPHATICS: No palpable axillar or supraclavicular adenopathy. NEUROLOGICAL: Awake and alert. Motor and sensory grossly within normal limits. Follows commands. Clear speech . Moves all extremities. PSYCHIATRIC: calm , cooperative Laboratory Laboratory Tests Test 03/19/17 04:58 03/19/17 12:00 White Blood Count 5.2 Red Blood Count 3.31 Hemoglobin 9.8 Hematocrit 28.9 Mean Corpuscular Volume 87.3 Mean Corpuscular Hemoglobin 29.7 Mean Corpuscular Hemoglobin Concent 34.0 Red Cell Distribution Width 14.3 Platelet Count 155 Mean Platelet Volume 9.3 Neutrophils (%) (Auto) 55.1 Lymphocytes (%) (Auto) 28.4 Monocytes (%) (Auto) 11.8 Eosinophils (%) (Auto) 3.7 Basophils (%) (Auto) 1.0 Neutrophils # (Auto) 2.8 Lymphocytes # (Auto) 1.5 Monocytes # (Auto) 0.6 Eosinophils # (Auto) 0.2 Basophils # (Auto) 0.1 CBC Comment DIFF FINAL Differential Comment Blood Urea Nitrogen 5 Creatinine 0.61 Random Glucose 87 Total Protein 6.6 Albumin 2.7 Calcium Level 8.4 Alkaline Phosphatase 121 Aspartate Amino Transf (AST/SGOT) 12 Alanine Aminotransferase (ALT/SGPT) 21 Total Bilirubin 0.5 Sodium Level 141 Potassium Level 2.7 3.6 Chloride Level 105 Carbon Dioxide Level 30.2 Anion Gap 6 Estimat Glomerular Filtration Rate 101 Vancomycin Level Trough 15.4 Result Diagram: 03/19/17 0458 03/19/17 1200 Imaging Last Impressions Humerus X-Ray 03/18/17 1255 Signed Impressions: Service Date/Time: Saturday, March 18, 2017 13:42 - CONCLUSION: Significant bridging periosteal reaction across the comminuted humeral fracture. Chele Ferrari MD Assessment and Plan Assessment and Plan Infected R humerus hardware, MRSA Clinically failed treatment - Pt is due for completion of tx in 3 days and she is having drainage, pain, redness and ESR of 63 REc's: will switchto daptomycin fu CKs weekly while on dapto cont rifampin case dw Dr Caro over the phone: she needs at least 4 more weeks of hardware dw Dr Hoang Lopez,Gina Rowland MD Mar 19, 2017 18:07
--- NOTE | 2017-03-19 18:10 | HHI.FF ---
Infusion Therapy Location of Infusion Therapy: Home [facility] Care IV Infusion Order Patient Information Patient Weight 72.73 kg Diagnosis: Coded Allergies: latex (Unverified Allergy, Severe, 03/18/17) topiramate (Unverified Allergy, Severe, 03/18/17) Administer Medication Daptomycin 500 mg IV Start Treatment: Apr 29, 2017 Additional Information Venous access: PICC Line Additional Instructions [x] Peripheral flush and dressing changes per protocol [x] Implanted port and central online health and fitness coach: * Implanted port: 10 ml Normal Saline followed by 5 ml Heparin 100 units/ml Heparin flush after each use and monthly to maintain. [] May leave port accessed during therapy. [] May leave peripheral site accessed for duration of therapy. [x] If patient has SOB or respiratory distress, check oxygen saturation. If less than 90% or clinical signs of respiratory distress, administer oxygen at 2 L/min. via nasal cannula and notify physician. [x] Anaphylaxis/Reaction orders: * Stop infusion. * Keep IV line open with saline flush. * Notify physician. * Monitor vital signs every 15 minutes until symptoms resolve. * Check Oxygen saturation; Oxygen at 2 L/min. via nasal cannula if less than 90% or clinical signs of respiratory distress. * Administer diphenhydramine (Benadryl) 25 mg IV STAT, (unless patient has received as pre-med). May repeat once, if necessary. * Solu-Cortef 250 mg IVP over 30-60 seconds, use 100 mg vials for each dissolution. * Epinephrine (1mg/1 ml) 0.3 mg subcutaneously or IVP now with any signs of respiratory distress. * Check with physician for new additional pre-med orders if patient is re- challenged or re-treated. [x] May remove PICC line when treatment complete, after confirming with Physician. [x] If the patient is admitted to the hospital, the ED, or transferred via [facility] , complete transfer form including medication reconciliation order sheet. Laboratory Tests Weekly Labs: CBC w/diff, Creatinine, CRP, LFT's (Hepatic function test), SED Rate, Serum CK Levels Gina Lopez MD Mar 19, 2017 18:10
[2017-03-19 19:27] VITALS: BP 110/71; PULSE 86; RESP 16; TEMP 98.2; O2SAT 99
[2017-03-19] MEDS: DAPTOmycin INJ 500 MG in SODIUM CHLORIDE 0.9% INJ 100 ML IV SCH (22:47)
[2017-03-19] MEDS: AMITRIPTYLINE HCL 25 MG TAB PO SCH (22:47)
[2017-03-19] MEDS: PREGABALIN 100 MG CAP PO SCH (22:48)
[2017-03-20 01:07] VITALS: BP 104/63; PULSE 82; RESP 16; TEMP 98.1; O2SAT 97
[2017-03-20 04:44] VITALS: BP 107/60; PULSE 86; RESP 16; TEMP 98.5; O2SAT 96
[2017-03-20 07:37] VITALS: BP 129/84; PULSE 85; RESP 18; TEMP 98.3; O2SAT 95
[2017-03-20] MEDS: LORATADINE 10 MG TAB PO SCH (08:07)
[2017-03-20] MEDS: RIFAMPIN 150 MG CAP PO SCH ×2 (08:07→21:51)
--- NOTE | 2017-03-20 08:44 | PD.ORT.PN ---
Subjective Subjective Remarks Patient is awake and alert. No new complaints today. She states that the wound on her right arm is getting smaller and drainage is decreasing Objective Vitals Vital Signs Date Time Temp Pulse Resp B/P (MAP) Pulse Ox O2 Delivery O2 Flow Rate FiO2 03/20/17 07:37 98.3 85 18 129/84 (99) 95 03/20/17 04:44 98.5 86 16 107/60 (76) 96 03/20/17 01:07 98.1 82 16 104/63 (77) 97 03/19/17 23:48 15 03/19/17 19:27 98.2 86 16 110/71 (84) 99 03/19/17 16:00 97.7 90 16 107/63 (78) 94 03/19/17 12:00 97.6 92 16 121/86 (98) 98 I/O 03/19/17 03/19/17 03/19/17 03/20/17 03/20/17 03/20/17 07:00 15:00 23:00 07:00 15:00 23:00 Intake Total 515 ml Balance 515 ml IV Total 515 ml Result Diagram: 03/19/17 0458 03/19/17 1200 Imaging Last 24 hours Impressions Humerus X-Ray 03/18/17 1255 Signed Impressions: Service Date/Time: Saturday, March 18, 2017 13:42 - CONCLUSION: Significant bridging periosteal reaction across the comminuted humeral fracture. Chele Ferrari MD Objective Remarks Right upper extremity: No pain to palpation of her proximal humerus. Humeral shaft incision has healed over the majority of it except for approximately 1 cm wound. This wound has decreased in size and is 25% of the wound and originally was. There is serous drainage noted. Distally she has intact sensation with full extension and flexion of all fingers Assessment & Plan Assessment and Plan ORIF right humeral shaft fracture on 01/16/2017 Infection with IV antibiotics and antibiotic beads Nonweightbearing right upper extremity Daily dressing changes with bacitracin and Adaptic 4 x 4's and light Kareem wrap No surgical intervention necessary at this time--will need hardware removal in approximately 4 weeks Once medically stable she may be discharged home She should keep her previously made appointment with Dion Nunes MD Mar 20, 2017 08:44
--- NOTE | 2017-03-20 08:45 | HHI.FF ---
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 [] May leave port accessed during therapy. [] May leave peripheral site accessed for duration of therapy. [x] If patient has SOB or respiratory distress, check oxygen saturation. If less than 90% or clinical signs of respiratory distress, administer oxygen at 2 L/min. via nasal cannula and notify physician. [x] Anaphylaxis/Reaction orders: * Stop infusion. * Keep IV line open with saline flush. * Notify physician. * Monitor vital signs every 15 minutes until symptoms resolve. * Check Oxygen saturation; Oxygen at 2 L/min. via nasal cannula if less than 90% or clinical signs of respiratory distress. * Administer diphenhydramine (Benadryl) 25 mg IV STAT, (unless patient has received as pre-med). May repeat once, if necessary. * Solu-Cortef 250 mg IVP over 30-60 seconds, use 100 mg vials for each dissolution. * Epinephrine (1mg/1 ml) 0.3 mg subcutaneously or IVP now with any signs of respiratory distress. * Check with physician for new additional pre-med orders if patient is re- challenged or re-treated. [x] May remove PICC line when treatment complete, after confirming with Physician. [x] If the patient is admitted to the hospital, the ED, or transferred via [facility] , complete transfer form including medication reconciliation order sheet. Laboratory Tests Weekly Labs: CBC w/diff, Creatinine, CRP, LFT's (Hepatic function test), SED Rate, Serum CK Levels Gina Lopez MD Mar 20, 2017 08:45
[2017-03-20] MEDS ORDERED: EPIN1INJ21 IV PUSH (08:47)
[2017-03-20] MEDS ORDERED: DAPT500P IV (08:47)
[2017-03-20] MEDS ORDERED: RIFA300C2 PO (08:47)
[2017-03-20] MEDS ORDERED: SOLU250I IV PUSH (08:47)
[2017-03-20] MEDS ORDERED: EPIN1INJ21 SQ (08:47)
--- NOTE | 2017-03-20 09:18 | PD.ORT.PN ---
Subjective Subjective Remarks Original surgery for ORIF of right humerus on 01/16/2017 and irrigation debridement of right humerus with placement of antibiotic beads on 02/06/2017. Due to infection and instability fracture she has been on IV antibiotics and has retained hardware. Ride yesterday to the ER due to swelling, erythema and drainage of wound over the incision line of the right humerus. She has been on IV vancomycin. Vancomycin trough was significantly high Objective Vitals Vital Signs Date Time Temp Pulse Resp B/P (MAP) Pulse Ox O2 Delivery O2 Flow Rate FiO2 03/20/17 07:37 98.3 85 18 129/84 (99) 95 03/20/17 04:44 98.5 86 16 107/60 (76) 96 03/20/17 01:07 98.1 82 16 104/63 (77) 97 03/19/17 23:48 15 03/19/17 19:27 98.2 86 16 110/71 (84) 99 03/19/17 16:00 97.7 90 16 107/63 (78) 94 03/19/17 12:00 97.6 92 16 121/86 (98) 98 I/O 03/19/17 03/19/17 03/19/17 03/20/17 03/20/17 03/20/17 07:00 15:00 23:00 07:00 15:00 23:00 Intake Total 515 ml Balance 515 ml IV Total 515 ml Result Diagram: 03/19/17 0458 03/19/17 1200 Imaging Last 24 hours Impressions Humerus X-Ray 03/18/17 1255 Signed Impressions: Service Date/Time: Saturday, March 18, 2017 13:42 - CONCLUSION: Significant bridging periosteal reaction across the comminuted humeral fracture. Chele Ferrari MD Objective Remarks Right upper extremity: No pain to palpation of her proximal humerus. Humeral shaft incision has healed over the majority of it except for approximately 1 cm wound. This wound has decreased in size and is 25% of the wound and originally was. There is serous drainage noted. Distally she has intact sensation with full extension and flexion of all fingers Assessment & Plan Assessment and Plan ORIF right humeral shaft fracture on 01/16/2017 Infection with IV antibiotics and antibiotic beads Nonweightbearing right upper extremity Daily dressing changes with bacitracin and Adaptic 4 x 4's and light Kareem wrap No surgical intervention necessary at this time--will need hardware removal in approximately 4-6 weeks Once medically stable she may be discharged home She should keep her previously made appointment with Jaylen Weathers Jr. Mar 20, 2017 09:18
[2017-03-20 11:43] VITALS: BP 135/83; PULSE 85; RESP 18; TEMP 98.7; O2SAT 96
[2017-03-20] MEDS: BACITRACIN TOP OINT 15 GM TUBE TOPICAL SCH (14:29)
[2017-03-20] MEDS: SODIUM CHLORIDE 0.9% FLUSH 10 ML FLUSH IV FLUSH SCH ×2 (14:30→21:53)
[2017-03-20 16:31] VITALS: BP 138/88; PULSE 84; RESP 18; TEMP 98.4; O2SAT 96
[2017-03-20 20:00] VITALS: BP 172/88; PULSE 101; RESP 20; TEMP 97.7; O2SAT 99
[2017-03-20] MEDS: PREGABALIN 100 MG CAP PO SCH (21:51)
[2017-03-20] MEDS: DAPTOmycin INJ 500 MG in SODIUM CHLORIDE 0.9% INJ 100 ML IV SCH (21:51)
[2017-03-20] MEDS: AMITRIPTYLINE HCL 25 MG TAB PO SCH (21:51)
[2017-03-21] VITALS: BP 113/63; PULSE 83; RESP 18; TEMP 96.6; O2SAT 96
[2017-03-21 08:00] VITALS: BP 124/72; PULSE 81; RESP 16; TEMP 96.4; O2SAT 96
--- NOTE | 2017-03-21 09:02 | HHI.PR ---
Subjective Remarks Delayed entry for 03/20/2017. Patient is doing well. No acute concerns. Objective Vitals Vital Signs Date Time Temp Pulse Resp B/P (MAP) Pulse Ox O2 Delivery O2 Flow Rate FiO2 03/21/17 08:00 96.4 81 16 124/72 (89) 96 03/21/17 00:00 96.6 83 18 113/63 (80) 96 03/20/17 20:00 97.7 101 20 172/88 (116) 99 03/20/17 16:31 98.4 84 18 138/88 (105) 96 03/20/17 11:43 98.7 85 18 135/83 (100) 96 I/O 03/20/17 03/20/17 03/20/17 03/21/17 03/21/17 03/21/17 07:00 15:00 23:00 07:00 15:00 23:00 Intake Total 100 ml 0 ml Balance 100 ml 0 ml Intake Oral 0 ml IV Total 100 ml # Voids 1 # Bowel Movements 0 Result Diagram: 03/19/17 0458 03/19/17 1200 Imaging Last Impressions Humerus X-Ray 03/18/17 1255 Signed Impressions: Service Date/Time: Saturday, March 18, 2017 13:42 - CONCLUSION: Significant bridging periosteal reaction across the comminuted humeral fracture. Chele Ferrari MD Objective Remarks GENERAL: Alert, NAD. SKIN: Warm and dry. HEAD: Normocephalic. EYES: No scleral icterus. No injection or drainage. NECK: Supple, trachea midline. No JVD or lymphadenopathy. CARDIOVASCULAR: Regular rate and rhythm without murmurs, gallops, or rubs. RESPIRATORY: Breath sounds equal bilaterally. No accessory muscle use. GASTROINTESTINAL: Abdomen soft, non-tender, nondistended. MUSCULOSKELETAL: No cyanosis, or edema. BACK: Nontender without obvious deformity. No CVA tenderness. Procedures None. A/P Problem List: (1) Postoperative wound infection ICD Code: T81.4XXA - Infection following a procedure, initial encounter Status: Acute Assessment and Plan 56-year-old female with past medical history significant for CVA/TIA, GERD, migraines, [place] Childress, adjustment disorder, depression, anxiety, and right humeral ORIF recently treated for MRSA wound infection. Right upper arm cellulitis - Patient with history of MRSA positive wound infection, on IV Vanco - CBC reviewed, no leukocytosis, patient also afebrile, ESR 63 - X-ray completed 03/18/17 reviewed, significant bridging periosteal reaction across the can comminuted humeral fracture. - ID recommends Daptomycin on discharge until 04/29/2017. - For the moment will continue IV vancomycin. - Pain control with Tylenol - Once [facility]home health arranged, we will discharge patient, likely on 2017. Normocytic anemia - Hgb 9.8. Hct 28.9. Anxiety/depression/adjustment disorder - Resume patient's home amitriptyline, and ropinirole. Hypokalemia: Replaced. Improved from 2.7 --> 3.6. DVT prophylaxis -SCDs, early ambulation Likely discharge on 03/21/2017. Marixa Box DO Mar 21, 2017 09:02
[2017-03-21] MEDS: LORATADINE 10 MG TAB PO SCH (09:26)
[2017-03-21] MEDS: SODIUM CHLORIDE 0.9% FLUSH 10 ML FLUSH IV FLUSH SCH (09:26)
[2017-03-21] MEDS: RIFAMPIN 150 MG CAP PO SCH (09:26)
[2017-03-21] MEDS: BACITRACIN TOP OINT 15 GM TUBE TOPICAL SCH (09:27)
--- NOTE | 2017-03-21 10:09 | HHI.FF ---
Face to Face Verification Diagnosis: (1) Local infection of skin and subcutaneous tissue (2) Comminuted right humeral fracture with delayed healing (3) Abscess of arm, right Home Health Nursing Order: Medical education Signs/symptoms of disease process Wound care and dressing changes Nursing assessment with vital signs IV medication administration Instructions: Per orthopedic surgery: Daily dressing changes with bacitracin and Adaptic 4 x 4 's and light Kareem wrap I have seen patient Andra Malone on 03/21/17. My clinical findings support the need for the requested home health care services because: Ltd mobility - disease progression Deconditioned w/ increased weakness Need for psychosocial assistance High risk of falls Infection w/ risk of complications I certify that my clinical findings support that this patient is homebound because: Post-op weakness Impaired cognitive ability/safety Unsteady gait/balance Unsafe to leave home unassisted Need for psychosocial assistance [id number] bed/chair Unable to use public transportation Marixa Box DO Mar 21, 2017 10:09 am
--- NOTE | 2017-03-21 10:11 | HHI.DS ---
Discharge Summary Admission Date Mar 19, 2017 at 11:07 am Discharge Date: Mar 21, 2017 Admitting Diagnosis Postoperative right arm wound infection (1) Postoperative wound infection ICD Code: T81.4XXA - Infection following a procedure, initial encounter Status: Acute Procedures None. Brief History - From Admission 56-year-old female with past medical history significant for CVA/TIA, GERD, migraines, [place] Childress, adjustment disorder, depression, anxiety, and right humeral ORIF. Patient originally underwent right ORIF of humerus secondary to fracture on 01/16/17 by . Patient was subsequently discharged to [facility] where she was doing well up until January when she began experiencing increased redness, pain, and swelling at surgical site. She was admitted to [facility] on 02/05/17 due to cellulitis with abscess and treated with IV antibiotics. At that time patient also underwent irrigation and debridement of right arm humerus by orthopedic surgery. Her hospitalization during that stay was complicated secondary to septic shock requiring mechanical ventilation. She was seen and treated by infectious disease due to positive MRSA. She was discharged home with home health with recommendations for IV vancomycin via PICC. Today patient presents once again to the emergency department with complaints of right upper arm warmth, redness, and tenderness following recommendations of wound care nurse. Patient reports that warmth and tenderness began 2 days ago. She denies any fevers, chills, nausea, vomiting, diarrhea, or headaches. She reports no changes to her medications or past medical history. CBC/BMP: 03/19/17 0458 03/19/17 1200 Significant Findings Laboratory Tests Test 03/18/17 12:10 03/18/17 12:11 03/18/17 12:55 03/18/17 15:14 Blood Urea Nitrogen 6 MG/DL (7-18) Albumin 3.3 GM/DL (3.4-5.0) Alkaline Phosphatase 142 U/L (45-117) Potassium Level 3.4 MEQ/L (3.5-5.1) Estimat Glomerular Filtration Rate 78 ML/MIN (>89) Lactic Acid Level 2.4 mmol/L (0.4-2.0) Vancomycin Level Trough 49.4 MCG/ML (5.0-10.0) Red Blood Count 3.93 MIL/MM3 (4.00-5.30) Hemoglobin 11.4 GM/DL (11.6-15.3) Hematocrit 34.7 % (35.0-46.0) Monocytes (%) (Auto) 10.0 % (0.0-8.0) Erythrocyte Sedimentation Rate 63 mm/hr (0-30) C-Reactive Protein 4.76 MG/DL (0.00-0.30) Test 03/18/17 15:15 03/19/17 04:58 03/19/17 12:00 03/20/17 03:58 Red Blood Count 3.31 MIL/MM3 (4.00-5.30) Hemoglobin 9.8 GM/DL (11.6-15.3) Hematocrit 28.9 % (35.0-46.0) Monocytes (%) (Auto) 11.8 % (0.0-8.0) Blood Urea Nitrogen 5 MG/DL (7-18) Albumin 2.7 GM/DL (3.4-5.0) Calcium Level 8.4 MG/DL (8.5-10.1) Alkaline Phosphatase 121 U/L (45-117) Aspartate Amino Transf (AST/SGOT) 12 U/L (15-37) Potassium Level 2.7 MEQ/L (3.5-5.1) Vancomycin Level Trough 15.4 MCG/ML (5.0-10.0) Imaging Last Impressions Humerus X-Ray 03/18/17 1255 Signed Impressions: Service Date/Time: Saturday, March 18, 2017 13:42 - CONCLUSION: Significant bridging periosteal reaction across the comminuted humeral fracture. Chele Ferrari MD PE at Discharge GENERAL: This is a well-nourished, well-developed patient, in no apparent distress. SKIN: No rashes. Cool and dry. Right upper arm with visible scar, mild surrounding redness, warmth, tenderness. Scar with noted opening, yellow discoloration. CARDIOVASCULAR: Regular rate and rhythm without murmurs, gallops, or rubs. RESPIRATORY: Clear to auscultation. Breath sounds equal bilaterally. No wheezes , rales, or rhonchi. GASTROINTESTINAL: Abdomen soft, non-tender, nondistended. No guarding. MUSCULOSKELETAL: Extremities without clubbing, cyanosis, or edema. No joint tenderness, effusion, or edema noted. No calf tenderness. NEUROLOGICAL: Awake and alert. Cranial nerves II through XII intact. Motor and sensory grossly within normal limits. Five out of 5 muscle strength in all muscle groups. Normal speech. Pt update on day of discharge Patient is currently doing well. No acute concerns. Cleared for discharged from orthopedic surgery. Hospital Course Ms. Malone is a 56 year old female with a history of CVA/TIA, GERD, migraines , [place] Childress, adjustment disorder, depression, anxiety, and right humeral ORIF who was admitted due to right upper arm warmth, redness and tenderness. Xray showed no erosions, healing fracture. Orthopedic surgery recommended no surgical intervention at this point. They recommended hardware removal in approximately 4-6 weeks and follow up with orthopedic surgery. ID was consulted and recommended Daptomycin to be continued until 04/29/2017. Patient was subsequently discharged to [facility] with home health. Case management confirmed with [facility] regarding Daptomycin. Pt Condition on Discharge: Good Discharge Disposition: [facility] with [facility] Discharge Time: > 30 minutes Discharge Instructions DIET: Follow Instructions for: Heart Healthy Diet Activities you can perform: Regular-No Restrictions Follow up Referrals: PCP Follow-up - 1 Week New Medications: Daptomycin Inj (Cubicin Inj) 500 Mg Bag 500 MG IV Q24H for Infection for 42 Days, BAG 0 Refills Must dilute in appropriate IV Fluid prior to administration Epinephrine Inj (Epinephrine Inj) 1 Mg/Ml (1 Ml) Inj 0.3 MG IV PUSH ONCE PRN for ALLERGIC REACTION, #1 VIAL Epinephrine Inj (Epinephrine Inj) 1 Mg/Ml (1 Ml) Inj 0.3 MG SQ ONCE PRN for ALLERGIC REACTION, #1 VIAL Give with any signs of respiratory distress. Hydrocortisone Inj (Solu-Cortef Inj) 250 Mg/2 Ml Inj 250 MG IV PUSH ONCE PRN for ALLERGIC REACTION, #1 VIAL 0 Refills Give over 30-60 seconds. Rifampin (Rifampin) 300 Mg Cap 300 MG PO BID for Infection for 40 Days, #80 CAP 0 Refills Continued Medications: Amitriptyline (Amitriptyline) 25 Mg Tab 25 MG PO HS, TAB Calcium Carbonate-Vitamin D (Calcium 600+D 200) 600-200 Mg-Unit Tab 1 TAB PO BID for Nutritional Supplement, #90 TAB 0 Refills Ergocalciferol (Ergocalciferol) 50,000 Unit Cap 58546 UNITS PO Q7D for Nutritional Supplement, #8 CAP Loratadine (Allergy Relief) 10 Mg Tab 10 MG PO DAILY, TAB Pregabalin (Lyrica) 300 Mg Cap 300 MG PO HS, CAP 0 Refills Ropinirole (Requip) 1 Mg Tab 1 MG PO HS, #30 TAB Discontinued Medications: Acetaminophen (Mapap) 325 Mg Tab 325 MG PO Q4-6H PRN for PAIN 1 TO 10 AND/OR AGITATION, TAB 0 Refills Epinephrine Inj (Epinephrine Inj) 1 Mg/Ml (1 Ml) Inj 0.3 MG IV PUSH ONCE PRN for ALLERGIC REACTION, #1 VIAL Epinephrine Inj (Epinephrine Inj) 1 Mg/Ml (1 Ml) Inj 0.3 MG SQ ONCE PRN for ALLERGIC REACTION, #1 VIAL Give with any signs of respiratory distress. Hydrocodone/Acetaminophen (Hydrocodone-Acetamin 10-325 mg) 10 Mg-325 Mg Tablet 1 TAB PO Q3H PRN for pain 2<10, #10 TAB Hydrocortisone Inj (Solu-Cortef Inj) 250 Mg/2 Ml Inj 250 MG IV PUSH ONCE PRN for ALLERGIC REACTION, #1 VIAL 0 Refills Give over 30-60 seconds. Potassium Chloride ER (Potassium Chloride ER) 20 Meq Tab 20 MEQ PO DAILY for Electrolyte Replacement, #3 TAB 0 Refills Rifampin (Rifampin) 300 Mg Cap 300 MG PO BID for Infection for 40 Days, #80 CAP 0 Refills Vancomycin Inj (Vancomycin Inj) 10 Gram Inj 1500 MG IV Q12HR for Infection for 40 Days, VIAL Marixa Box DO Mar 21, 2017 10:11
[2017-03-21 12:00] VITALS: BP 142/90; PULSE 83; RESP 17; TEMP 96.6; O2SAT 96
[2017-03-21 16:00] VITALS: BP 155/96; PULSE 83; RESP 18; TEMP 97.7; O2SAT 97
[2017-03-21] MEDS ORDERED: DAPTOmycin INJ 500 MG in SODIUM CHLORIDE 0.9% INJ 100 ML IV SCH (16:00)
== END 2017-03-21 18:35 | DRG 863 ==
LOC: NEPC 11:55 → NEDA 17:35 → NEPGCP 20:06 → OBSVTOIN 03-19 11:07 → N07A 03-20 17:20
PROVIDERS: ADMIT Hospitalist; ATTEND Hospitalist
DX: T81.4XXA Infection following a procedure, initial encounter (principal); F32.9 Major depressive disorder, single episode, unspecified; L03.113 Cellulitis of right upper limb; K21.9 Gastro-esophageal reflux disease without esophagitis; F43.22 Adjustment disorder with anxiety; Z96.641 Presence of right artificial hip joint; D64.9 Anemia, unspecified; E87.6 Hypokalemia; Z86.73 Personal history of transient ischemic attack (TIA), and cerebral infarction without residual deficits; Z86.14 Personal history of Methicillin resistant Staphylococcus aureus infection; S42.351D Displaced comminuted fracture of shaft of humerus, right arm, subsequent encounter for fracture with routine healing
CPT/HCPCS: 73060; 80053; 80202; 82550; 83605; 84132; 85025; 85610; 85652; 85730; 86140; 87070; 87205; G0378; J0878; J3370; J3480; J7040

== ENCOUNTER → 2017-05-26 | Day surgery (SDC) | payer MEDICARE, MEDICAID ==
[~2017-05-26] VITALS: Ht 162.6 cm; Wt 72.5 kg
[~2017-05-26] MED LIST changes: +*LABETALOL HCL 100 MG/20 ML VIAL PERIprocedural Use ONLY ONE; +*morphine SULFATE 4 MG/ML PERIprocedure ONLY ONE; +ACETAMINOPHEN/HYDROcodone 325 MG/10 MG TAB PO PRN; -CALCTAB19 PO; +CHLORHEXIDINE GLUCONATE 2 % 1 PACK (2 CLOTHS) TOPICAL PRN; +CLIN300C5 PO; +DEXAMETHASONE SOD PHOS 4 MG/ML VIAL IV ONE; +DO NOT ADM ANY ANTICOAGULANT DRUGS PRN; -EPIN1INJ21 IV PUSH; -EPIN1INJ21 SQ; +GENTAMICIN SULFATE 80 MG/2 ML VIAL ONE; +HYDR-3288 PO; +HYDR-3366 PO; +HYDR-3580 PO; -HYDR-3583 PO; +LACTATED RINGER'S 1000 ML IV PRN; +LIDOCAINE HCL 1% PF 5 ML SYRINGE OTHER ONE; +LORA0.5T PO; -MAPA325T PO; +MELA5 PO; +METOPROLOL TARTRATE 25 MG TAB PO PRN; +MIDAZOLAM HCL 2 MG/2 ML VIAL ONE; +MORPHINE SULFATE 4 MG/ML INJ IV PUSH PRN; +ONDANSETRON HCL 4 MG/2 ML VIAL IV ONE; +ONDANSETRON HCL 4 MG/2 ML VIAL IV PUSH PRN; -POTA-163 PO; +POVIDONE IODINE 5% (ANTISEPSIS KIT) 4 APPLICATIONS EACH NARE PRN; +PROPOFOL 200 MG/20 ML AMP IV ONE; -RIFA300C2 PO; +SODIUM CHLOR 0.9% 250 ML INJ 250 ML ONE; +SODIUM CHLORID 0.9% 500 ML IV PRN; +SODIUM CHLORIDE 0.9% FLUSH 10 ML FLUSH IV FLUSH PRN; +SODIUM CHLORIDE 0.9% FLUSH 10 ML FLUSH IV FLUSH SCH; -SOLU250I IV PUSH; +TOBRAMYCIN 1200 MG VIAL (for ortho/sterile core) OTHER ONE; -VANC10IN IV; +VANCOMYCIN HCL 1000 MG VIAL ONE; -VITA500012 PO; +ceFAZolin INJ 1,000 MG VIAL ONE
--- NOTE | 2017-05-26 09:28 | PD.OP ---
cc: Dion Caro MD Operative Report Date of Surgery: May 26, 2017 Preoperative Diagnosis: Infected hardware right humerus Postoperative Diagnosis: Procedure: Removal of deep hardware right humerus, irrigation debridement of right humerus , placement of antibiotic beads Surgeon: Dion Caro Drum Attendant(s): SHARLENE Hanson PA-C The surgical procedure was assisted by my physician legislative assistant. My P.A. presence was necessary throughout this case for the manipulation and positioning of the surgical extremity. My P.A. was assisting me throughout the duration of this procedure. The skill set of a physician legislative assistant was medically necessary to complete this procedure. During the surgical case the certified surgical tech/first assistant was working at the back table and the physician legislative assistant was directly assisting me. Operation and Findings: Andra is known to me from previous right humerus fracture treated with open reduction total fixation. She subsequently developed a postoperative wound infection. She was treated with irrigation debridement and IV antibiotics. The fracture has subsequently healed. She returns operating today for irrigation debridement and removal of deep hardware. She is brought to operating room. She is given IV sedation and general anesthesia. Timeout procedure was performed. Right arm and shoulder were prepped with alcohol followed by Hibiclens and draped in usual sterile fashion. Procedure began with a 10 inch incision through previous scar. Subcutaneous tissue dissected with Bovie. Fascia was elevated. The plate was now exposed. Attention was turned towards plate removal. Each of the screws was identified. All the screws were now removed. The plate was elevated using osteotomes. Fluoroscopy confirmed removal of all hardware. Next attention was turned to debridement of the humerus. Curettes and rongeurs were used to debride around the fracture site. Soft tissue and bone were obtained for cultures. Curettes were used to thoroughly debride the cortices of the bone. Overall the bone appeared to be healthy with no gross evidence of infection. After excisional debridement was completed, the wound was thoroughly irrigated with sterile saline. Next attention was turned antibiotic spacer. 10 cc of stimulant bone cement was mixed with 2 g of vancomycin. Once the beads were set the beads were packed along the fracture site of the humerus. Fluoroscopy was used to confirm that the fracture was healed. Fascia was now closed with 0 PDS, subcutaneous tissues closed with 3-0 PDS and skin was closed with ida and 3-0 nylon. Sterile dressings were applied. Patient was awakened and transferred to recovery in stable condition. Needle and sponge counts were correct. Dion Caro MD May 26, 2017 09:28
[2017-05-26 11:05] VITALS: BP 155/95; PULSE 79; RESP 18; O2SAT 94
--- NOTE | 2017-05-26 11:39 | RADRPT ---
EXAM DATE/TIME: 05/26/2017 09:13 [facility] COMPARISON: No previous studies available for comparison. INDICATIONS : Right humerus hardware removal MEDICAL HISTORY : None. SURGICAL HISTORY : None. ENCOUNTER: Initial ACUITY: 1 day PAIN SCORE: Non-responsive. LOCATION: Right Humerus FINDINGS: Right humerus hardware has been moved. There is callus formation around comminuted fracture. Presumed antibiotic beads are present. CONCLUSION: 1. Removal of right humerus hardware. Ranjeet Caba MD on May 26, 2017 at 11:35 Board Certified Radiologist. This report was verified electronically.
== END | disposition home or self-care (01) ==
LOC: HSDC 05:40
PROVIDERS: ATTEND Orthopaedic Surgery Orthopaedic Trauma
DX: T84.610A Infection and inflammatory reaction due to internal fixation device of right humerus, initial encounter (principal)
CPT/HCPCS: 01740; 11981; 20680; 73060; 76000; 87015; 87070; 87102; 87116; 87176; 87205; 87206; J0690; J1580; J2250; J2270; J3010; J3370; J7050; J7120; J1100; J2405